=== PATIENT | male | born 1970 | race Caucasian/White ===

== ENCOUNTER 2020-06-10 11:29 | Outpatient (REF) | payer OTHER, SELFPAY ==
[2020-06-10 14:13] LABS: Estimated Average Glucose 126 mg/dL
[2020-06-10 14:28] LABS: Alanine Aminotransferase 29 U/L (0-40); Anion Gap 14 (12-20); Aspartate Amino Transferase 22 U/L (5-37); Blood Urea Nitrogen 16 mg/dL (9-16); Calcium 8.9 mg/dL (8.4-10.2); Carbon Dioxide 29 mmol/L (22-29); Chloride 102 mmol/L (96-108); Cholesterol 155 mg/dL; Estimated Glomerular Filt Rate > 60; Glucose Fasting 107 mg/dL (60-99); HDL Cholesterol 38 mg/dL; LDL Cholesterol Calculated 101 mg/dl; Potassium 4.6 mmol/l (3.3-5.1); Sodium 140 mmol/L (135-145); Triglycerides 83 mg/dL
== END 2020-06-10 11:30 | disposition home or self-care (01) ==
LOC: HO.HMGCLDS 11:29
PROVIDERS: PCP Internal Medicine; Visit Provider Internal Medicine
DX: L20.82 Flexural eczema (principal); Z79.4 Long term (current) use of insulin; Z00.01 Encounter for general adult medical examination with abnormal findings
CPT/HCPCS: 80048; 80061; 83036; 84450; 84460

== ENCOUNTER → 2020-06-30 07:47 | Outpatient (BNVA) | payer OTHER, SELFPAY | PROVIDERS: PCP Internal Medicine; Referring Provider Internal Medicine; Visit Provider Nurse Practitioner Gerontology | DX: Z76.89 Persons encountering health services in other specified circumstances (principal) ==

== ENCOUNTER → 2020-08-01 09:14 | Outpatient (BNVA) | payer SELFPAY | PROVIDERS: PCP Internal Medicine; Referring Provider Internal Medicine; Visit Provider Physician Assistant | DX: Z76.89 Persons encountering health services in other specified circumstances (principal) ==

== ENCOUNTER 2020-09-19 08:57 | Day surgery (SDC) | payer OTHER, SELFPAY ==
[2020-09-13 11:01] VITALS: BMI 29.7
--- NOTE | 2020-09-15 14:03 | HO.ANESPROP2 ---
Documented by User: Tiffanie Martinney 09/15/20 14:08 HPI - Anesthesia Eval Consult details Narrative: 50yo M for Colonoscopy h/o etoh - last drank 12/2019 per GI record [facility] Past Medical History Medical History (Updated 09/13/20 @ 10:59 by Daisy Dias) Acute pancreatitis Acute renal failure Cirrhosis, alcoholic DKA (diabetic ketoacidoses) Hx of fracture of fibula Hyperlipidemia LDL goal <100 Hypertriglyceridemia Type 1 diabetes mellitus without complications Family History Family History Father Diabetes Mother Hyperlipidemia Paternal Uncle Diabetes Surgical History Surgical History Hx of hand surgery Social History Social History (Updated 09/13/20 @ 11:00 by Daisy Dias) Household Members: Spouse and Children Alcohol intake: former Year quit: 2019 Smoking Status: Never smoker Use of substances other than those prescribed or required for medical reasons: No Substance Use Type: Marijuana Substance Use Frequency: Daily Have you been hit, kicked, punched, or otherwise hurt by someone within the past year? 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 Meds Allergies Allergy/AdvReac Type Severity Reaction Status Date / Time No Known Allergies Allergy Verified 09/19/20 09:18 [No Known Allergies*] Home Medications Medication Instructions Recorded Confirmed Type alcohol swabs pad TOPICAL BID-TID PRN 06/30/20 08/01/20 History atorvastatin 20 mg tablet 20 mg PO DAILY 06/30/20 09/13/20 History flash glucose sensor #1 ea 06/30/20 08/01/20 History insulin glargine 100 unit/mL (3 12 unit SUBCUT BEDTIME 06/30/20 09/13/20 History mL) subcutaneous pen insulin lispro 100 unit/mL 2 - 6 unit SUBCUT TID PRN ml 06/30/20 09/13/20 History subcutaneous pen lancets 33 gauge #100 ea 06/30/20 08/01/20 History Exam Exam Date and Time: September 15, 2020 1403 Height,Weight and Vital Signs: Height 5 ft 7 in Weight 86.183 kg Pertinent Lab Results Pertinent Lab Results: Laboratory Tests 12/28/19 12/29/19 06/10/20 05:32 05:24 11:45 WBC 6.0 Hgb 15.1 Hct 42.2 Plt Count 139 L PT 11.7 INR 1.0 Sodium 140 Potassium 4.6 Chloride 102 Carbon Dioxide 29 BUN 16 Creatinine 0.82 Calcium 8.9 AST 22 ALT 29 Assessment and Plan Assessment Anesthesia Assessment: Chart Reviewed Documented by User: Tess Bishop 09/19/20 09:42 [facility] Past Medical History Medical History (Updated 09/13/20 @ 10:59 by Daisy Dias) Acute pancreatitis Acute renal failure Cirrhosis, alcoholic DKA (diabetic ketoacidoses) Hx of fracture of fibula Hyperlipidemia LDL goal <100 Hypertriglyceridemia Type 1 diabetes mellitus without complications Family History Family History Father Diabetes Mother Hyperlipidemia Paternal Uncle Diabetes Surgical History Surgical History Hx of hand surgery Social History Social History (Updated 09/13/20 @ 11:00 by Daisy Dias) Household Members: Spouse and Children Alcohol intake: former Year quit: 2019 Smoking Status: Never smoker Use of substances other than those prescribed or required for medical reasons: No Substance Use Type: Marijuana Substance Use Frequency: Daily Have you been hit, kicked, punched, or otherwise hurt by someone within the past year? 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 Meds Allergies Allergy/AdvReac Type Severity Reaction Status Date / Time No Known Allergies Allergy Verified 09/19/20 09:18 [No Known Allergies*] Home Medications Medication Instructions Recorded Confirmed Type alcohol swabs pad TOPICAL BID-TID PRN 06/30/20 08/01/20 History atorvastatin 20 mg tablet 20 mg PO DAILY 06/30/20 09/13/20 History flash glucose sensor #1 ea 06/30/20 08/01/20 History insulin glargine 100 unit/mL (3 12 unit SUBCUT BEDTIME 06/30/20 09/13/20 History mL) subcutaneous pen insulin lispro 100 unit/mL 2 - 6 unit SUBCUT TID PRN ml 06/30/20 09/13/20 History subcutaneous pen lancets 33 gauge #100 ea 06/30/20 08/01/20 History Exam Airway Mallampati Class: II (One cap laterally) TM Dist: >3cm Neck ROM: Full Heart: nakia Lungs: CTA BL Assessment and Plan Assessment Anesthesia Assessment: Anesthesia Plan Discussed and Chart Reviewed Final Anesthetic Review NPO: Yes ASA Class: III Final Preanesthetic Review: Meds/Allgs Chart Reviewed and Consent Obtained/Reviewed Patient Risk: Intermediate Procedure Risk: Intermediate Anesthetic Plan Anesthetic Plan: MAC: Disposition: Standard PACU
[2020-09-19 09:18] LABS: Glucose, Whole Blood 128 mg/dL (60-115)
[2020-09-19 09:29] VITALS: BP 134/79; PULSE 60; RESP 18; TEMP 35.3; O2SAT 98
--- NOTE | 2020-09-19 09:39 | MHC.SHP ---
Pre-Procedural Eval Section A The patient is an INPATIENT: No The History & Physical has been completed within 30 days and I have reviewed it.: No Section B Chief Complaint: screening Relevant Family History (Specify if Yes): No Relevant Social History: None Present Medications: see Short Stay Collaborative assessment Medical History: Significant History (Acute pancreatitis Acute renal failure Cirrhosis, alcoholic DKA (diabetic ketoacidoses) Hyperlipidemia LDL goal <100 Hypertriglyceridemia Type 1 diabetes mellitus without complications) History of Previous Operations: Relevant previous surgery/procedure and date(s) (Hand surgery) Allergies: Allergies Allergy/AdvReac Type Severity Reaction Status Date / Time No Known Allergies Allergy Verified 09/19/20 09:18 [No Known Allergies*] Review of Systems Sugical H&P ROS: Negative: Constitution, Cardiovascular, Respiratory and Gastrointestinal Exam Surgical H&P Exam: Normal: Heart, Normal: Lungs, Normal: Extremities and Normal: Abdomen Plan Diagnosis/Plan: Unchanged I have reviewed the history and physical and performed a pertinent physical examination on my patient. No changes have occurred unless specified.
--- NOTE | 2020-09-19 09:39 | PM.OP ---
Brief Operative Note Date of Service: 09/19/20 Pre-op diagnosis: Colon cancer screening Post-op diagnosis: other (Colon polyps, diverticulosis, hemorrhoids) Procedure: COLONOSCOPY TILL CECUM WITH SNARE POLYPECTOMY AND SUBMUCOSAL INJECTION (WITH ORISE SOLUTION) Consent: Indications for the procedure and potential complications of bleeding, perforation, reaction to medications and missed diagnosis were discussed with the patient and informed consent was obtained. Instrument: Olympus PCF H 190 L variable stiffness pediatric colonoscope Monitoring: Vital signs and clinical assessment, intermittent blood pressure monitoring, continuous EKG monitoring, Pulse oximetry and Carbon Dioxide monitoring were done throughout the procedure. Colon withdrawl time was 23 minutes. Procedure: The patient was placed in the left lateral decubitis position and pre-procedure medications were administered. After a digital rectal examination of the ano-rectum, the video colonoscope was inserted into the rectum and advanced through the colon to the cecum. The colonoscope was slowly withdrawn in a retrograde panoramic fashion and the colon mucosa was carefully examined including a retroflexed view of the rectum. Findings and interventions are described below. Procedure Difficulty: Without difficulty Findings: Terminal Ileum: Not evaluated Cecum: A 1.8 to 2 cms sessile polyp adjacent to appendicular orifice, raised with 4 cc of Orise solution (submucosal injection) and removed with a hot snare. Ascending Colon: Normal Transverse Colon: 10 mm sessile polyp removed with a hot snare. Descending Colon: Moderate diverticulosis Sigmoid Colon: Moderate diverticulosis Rectum: Normal Ano-rectum: Small internal hemorrhoids Colon preparation: Excellent Impression and Post Procedure Diagnosis: Colonoscopy Findings: Two medium sized polyps removed Moderate diverticulosis seen in the left colon Small hemorrhoids on retroflexed exam. Plan: Await pathology results Patient has an appointment on 09/27/20 in the GI Clinic with DAVIS Abreu. Repeat Colonoscopy interval based on path results - in 3 years if polyps are adenomatous and 10 years if polyps are hyperplastic. Above findings were reviewed with the patient and colon polyps and diverticulosis handouts were given in the discharge area Surgeon: Bettye Perez MD Anesthesia: MAC (Dr Guillen) Estimated blood loss (mL): 0 Pathology: other (A. cecal polyp x 1, B. TC polyp.) Condition: stable Disposition: PACU
[2020-09-19] MEDS: Lactated Ringers 1,000 ML 100 ML IVCONT (09:40)
[2020-09-19 10:24] VITALS: BP 120/79; PULSE 50; RESP 16; TEMP 36.1; O2SAT 98
[2020-09-19 10:39] VITALS: BP 130/76; PULSE 50; RESP 16; O2SAT 98
--- NOTE | 2020-09-19 10:53 | PC.NURSE ---
1048 TO; PO NO NV PREP FOR DC MONITORS AND IVF DCD ASST OOB CH STEADY IV DCD DRESSED SELF AT BS CALL FIELD IN REACH, PT CHECKED OWN BS 128. PLAN TO AMB TO DC
--- NOTE | 2020-09-19 11:08 | HO.POSTANES ---
Post Anesthesia Evaluation Post Anesthesia Evaluation Vital Signs: Vital Signs Temp Pulse Resp BP Pulse Ox 09/19/20 10:39 97 F 50 16 130/76 98 09/19/20 10:24 97 F 50 16 120/79 98 09/19/20 09:29 95.6 F L 60 18 134/79 98 Anesthesia: Monitored Mental Status: Awake Pain Control: Satisfactory Nausea/Vomiting: None Hydration: Adequate Anesthesia-Related Issues: No Anes. Related Issues
== END 2020-09-19 11:11 | disposition home or self-care (01) ==
PROVIDERS: PCP Internal Medicine; Visit Provider Internal Medicine Gastroenterology
PROC: 0DJD8ZZ Inspection of Lower Intestinal Tract, Via Natural or Artificial Opening Endoscopic (ICD-10-PCS; CPT 45378; principal; 2020-09-19 10:10)
DX: Z12.11 Encounter for screening for malignant neoplasm of colon (principal); K63.5 Polyp of colon; K57.30 Diverticulosis of large intestine without perforation or abscess without bleeding; K64.8 Other hemorrhoids; E10.9 Type 1 diabetes mellitus without complications
CPT/HCPCS: 45385; 45381; 82947; 88305

== ENCOUNTER → 2020-09-27 10:19 | Outpatient (BNVA) | payer OTHER, SELFPAY | PROVIDERS: PCP Internal Medicine; Visit Provider Physician Assistant ==

== ENCOUNTER → 2020-12-28 08:01 | Outpatient (BNVA) | payer OTHER, SELFPAY | PROVIDERS: PCP Internal Medicine; Visit Provider Nurse Practitioner Gerontology | DX: R10.9 Unspecified abdominal pain (principal); E78.5 Hyperlipidemia, unspecified | CPT/HCPCS: 82947 ==

== ENCOUNTER 2021-02-06 08:31 | Outpatient (REF) | payer OTHER, SELFPAY ==
[2021-02-06 09:37] LABS: Estimated Average Glucose 171 mg/dL; Hemoglobin A1c % 7.6 %
[2021-02-06 09:57] LABS: Cholesterol 193 mg/dL; HDL Cholesterol 21 mg/dL
[2021-02-06 10:02] LABS: Creatinine Urine 72.21 mg/dL; Microalbumin Urine < 5.0 mg/L
[2021-02-06 10:26] LABS: Triglycerides 1505 mg/dL
[2021-02-06 11:17] LABS: Alanine Aminotransferase 25 U/L (0-40); Albumin Level 4.2 g/dL (3.5-5.0); Alkaline Phosphatase 69 U/L (39-117); Anion Gap 13 (12-20); Aspartate Amino Transferase 26 U/L (5-37); Bilirubin Total 0.5 mg/dL (0.0-1.0); Blood Urea Nitrogen 15 mg/dL (9-16); Carbon Dioxide 22 mmol/L (22-29); Chloride 110 mmol/L (96-108); Estimated Glomerular Filt Rate > 60; Glucose Fasting 221 mg/dL (60-99); Potassium 5.2 mmol/L (3.3-5.1); Sodium 140 mmol/L (135-145); Total Protein 6.4 g/dL (6.5-8.0)
[2021-02-07 19:52] LABS: LDL Cholesterol Direct 59 mg/dL (<100)
== END 2021-02-06 08:32 | disposition home or self-care (01) ==
LOC: HO.LAB 08:31
PROVIDERS: Visit Provider Nurse Practitioner Gerontology
DX: E11.42 Type 2 diabetes mellitus with diabetic polyneuropathy (principal)
CPT/HCPCS: 36415; 80053; 80061; 82043; 83036; 83721

== ENCOUNTER → 2021-02-08 07:55 | Outpatient (BNVA) | payer OTHER, SELFPAY | PROVIDERS: PCP Internal Medicine; Visit Provider Nurse Practitioner Gerontology | DX: E10.9 Type 1 diabetes mellitus without complications (principal); E78.5 Hyperlipidemia, unspecified; E78.1 Pure hyperglyceridemia | CPT/HCPCS: 82947 ==

== ENCOUNTER 2021-03-22 07:45 | Outpatient (REF) | payer OTHER, SELFPAY ==
[2021-03-22 09:16] LABS: Anion Gap 10 (12-20); Blood Urea Nitrogen 19 mg/dL (9-16); Calcium 9.5 mg/dL (8.4-10.2); Carbon Dioxide 26 mmol/L (22-29); Chloride 109 mmol/L (96-108); Cholesterol 136 mg/dL; Estimated Glomerular Filt Rate > 60; Glucose Random 148 mg/dL (60-115); HDL Cholesterol 41 mg/dL; LDL Cholesterol Calculated 81 mg/dl; Potassium 4.7 mmol/L (3.3-5.1); Sodium 140 mmol/L (135-145); Triglycerides 71 mg/dL
== END 2021-03-22 07:46 | disposition home or self-care (01) ==
LOC: HO.LAB 07:45
PROVIDERS: PCP Internal Medicine; Visit Provider Nurse Practitioner Gerontology
DX: E78.1 Pure hyperglyceridemia (principal); E10.9 Type 1 diabetes mellitus without complications
CPT/HCPCS: 36415; 80048; 80061

== ENCOUNTER → 2021-04-14 08:23 | Outpatient (BNVA) | payer OTHER, SELFPAY | PROVIDERS: PCP Internal Medicine; Visit Provider Nurse Practitioner Gerontology | DX: E78.5 Hyperlipidemia, unspecified (principal); E78.1 Pure hyperglyceridemia; E10.9 Type 1 diabetes mellitus without complications | CPT/HCPCS: 82947 ==

== ENCOUNTER → 2021-08-17 08:22 | Outpatient (BNVA) | payer OTHER, SELFPAY | PROVIDERS: PCP Internal Medicine; Visit Provider Nurse Practitioner Gerontology | DX: E10.9 Type 1 diabetes mellitus without complications (principal); E78.5 Hyperlipidemia, unspecified; E78.1 Pure hyperglyceridemia | CPT/HCPCS: 82947; 83036 ==

== ENCOUNTER 2021-11-14 08:28 | Outpatient (REF) | payer OTHER, SELFPAY ==
[2021-11-14 10:39] LABS: Alanine Aminotransferase 31 U/L (0-40); Albumin Level 4.3 g/dL (3.5-5.0); Alkaline Phosphatase 51 U/L (39-117); Anion Gap 10 (12-20); Aspartate Amino Transferase 26 U/L (5-37); Bilirubin Total 0.5 mg/dL (0.0-1.0); Blood Urea Nitrogen 17 mg/dL (9-16); Calcium 9.2 mg/dL (8.4-10.2); Carbon Dioxide 26 mmol/L (22-29); Chloride 108 mmol/L (96-108); Cholesterol 129 mg/dL; Estimated Glomerular Filt Rate > 60; Glucose Fasting 136 mg/dL (60-99); HDL Cholesterol 44 mg/dL; LDL Cholesterol Calculated 80 mg/dl; Potassium 5.1 mmol/L (3.3-5.1); Sodium 139 mmol/L (135-145); Total Protein 6.5 g/dL (6.5-8.0); Triglycerides 29 mg/dL
[2021-11-14 12:07] LABS: Creatinine Urine 130.12 mg/dL; Microalbumin Urine < 5.0 mg/L
[2021-11-16 02:36] LABS: LDL Cholesterol Direct 72 mg/dL (<100)
== END 2021-11-14 08:29 | disposition home or self-care (01) ==
LOC: HO.LAB 08:28
PROVIDERS: PCP Internal Medicine; Visit Provider Nurse Practitioner Gerontology
DX: E10.9 Type 1 diabetes mellitus without complications (principal)
CPT/HCPCS: 36415; 80053; 80061; 82043; 83721

== ENCOUNTER → 2021-11-16 07:59 | Outpatient (BNVA) | payer OTHER, SELFPAY | PROVIDERS: PCP Internal Medicine; Visit Provider Nurse Practitioner Gerontology | DX: E10.9 Type 1 diabetes mellitus without complications (principal); E78.5 Hyperlipidemia, unspecified; E78.1 Pure hyperglyceridemia; R00.1 Bradycardia, unspecified | CPT/HCPCS: 82947; 83036 ==

== ENCOUNTER → 2021-12-04 07:54 | Outpatient (REF) | payer OTHER, SELFPAY ==
--- NOTE | 2021-12-04 07:58 | ECG_ITS ---
Test Reason : BRADYCARDIA Blood Pressure : / mmHG Vent. Rate : 046 BPM Atrial Rate : 093 BPM P-R Int : 000 ms QRS Dur : 094 ms QT Int : 460 ms P-R-T Axes : 062 013 015 degrees QTc Int : 402 ms Sinus rhythm with intermittent second degree HB Minimal voltage criteria for LVH, may be normal variant ( Sokolow-Nagel ) Abnormal ECG When compared with ECG of 27-DEC-2019 09:18, Rhythm change Referred By: Aimee Burton Electronically Signed By:MINNIE BROWN
--- NOTE | 2021-12-04 07:58 | HM_ITS ---
* Total monitoring time 3 days and 3 hours. * Underlying rhythm is sinus. Average ventricular rate 56/Min; range 36 to 124/Min. * No atrial fibrillation or flutter. * Second-degree, Mobitz type 1 AV block noted 28% the time (mostly sleep hours). * 4 pauses noted; longest 2.8 seconds during sleep hours. * Frequent supraventricular ectopy; burden of 15%. * Rare ventricular ectopy with minimal burden. * No patient events. MTDD
== END ==
LOC: HO.CARD 07:54
PROVIDERS: PCP Internal Medicine; Visit Provider Internal Medicine
DX: R00.1 Bradycardia, unspecified (principal)
CPT/HCPCS: 93005; 93242

== ENCOUNTER 2022-05-14 11:30 | Outpatient (REF) | payer OTHER, SELFPAY ==
[2022-05-14 14:05] LABS: Appearance Urine Clear; Color Urine Yellow; Glucose Urine UA Negative (Negative); Leukocyte Esterase Urine Negative (Negative); Nitrite Urine Negative (Negative); Urine Blood Negative (Negative); Urine Ketones Negative (Negative); Urine Protein Negative (Neg-Trace)
[2022-05-14 14:07] LABS: MANUAL DIFF FLAG NO
[2022-05-14 14:10] LABS: Bacteria Urine None Seen (None Seen); Hyaline Casts Urine 0-2 /LPF (0-2); RBC Urine 0-2 /HPF (0-2); Squamous Epithelial Cell Urine 0-2 /HPF (0-2); WBC Urine 0-5 /HPF (0-5)
[2022-05-14 14:19] LABS: Basophils Absolute Auto 0.1 X10*3/uL (0.0-0.2); Eosinophils Absolute Auto 0.1 X10*3/uL (0.0-0.4); Eosinophils Percent Auto 1.8 % (0-4); Hematocrit 40.7 % (42.0-52.0); Imm Gran Abs Auto 0.01 X10*3/uL (0.00-0.03); Imm Gran Pct Auto 0.2 % (0.0-0.4); Lymphocytes Absolute Auto 1.4 X10*3/uL (1.2-4.9); Lymphocytes Percent Auto 27.7 % (20-40); Mean Corpuscular HGB Conc 31.9 g/dl (31.0-36.0); Mean Corpuscular Hemoglobin 26.4 pg (27.0-33.0); Mean Corpuscular Volume 82.6 fL (80.0-98.0); Monocytes Absolute Auto 0.4 X10*3/uL (0.1-1.2); Monocytes Percent Auto 7.1 % (2-11); Neutrophils Absolute Auto 3.1 x10*3/uL (2.0-8.3); Neutrophils Percent Auto 62.2 % (45-73); Platelet Count 239 X10*3/uL (160-400); Red Blood Count 4.93 X10*6/uL (4.60-5.80); White Blood Count 4.9 X10*3/uL (4.8-10.8)
[2022-05-14 14:36] LABS: Creatinine Urine 63.46 mg/dL; Microalbumin Urine < 5.0 mg/L
[2022-05-14 14:44] LABS: Estimated Average Glucose 148 mg/dL; Hemoglobin A1c % 6.8 %
[2022-05-14 14:46] LABS: Alanine Aminotransferase 28 U/L (0-40); Albumin Level 4.7 g/dL (3.5-5.0); Alkaline Phosphatase 51 U/L (39-117); Anion Gap 14 (12-20); Aspartate Amino Transferase 26 U/L (5-37); Bilirubin Total 0.5 mg/dL (0.0-1.0); Blood Urea Nitrogen 16 mg/dL (9-16); Calcium 9.5 mg/dL (8.4-10.2); Carbon Dioxide 27 mmol/L (22-29); Chloride 106 mmol/L (96-108); Cholesterol 131 mg/dL; Estimated Glomerular Filt Rate > 60; Glucose Fasting 109 mg/dL (60-99); HDL Cholesterol 42 mg/dL; LDL Cholesterol Calculated 81 mg/dl; Potassium 4.5 mmol/L (3.3-5.1); Sodium 142 mmol/L (135-145); Total Protein 6.8 g/dL (6.5-8.0); Triglycerides 40 mg/dL
[2022-05-14 14:55] LABS: PSA,Total (Free>4and<10) 0.24 ng/mL (0.00-4.00)
== END 2022-05-14 11:31 | disposition home or self-care (01) ==
LOC: HO.HMGCLDS 11:30
PROVIDERS: PCP Internal Medicine; Visit Provider Internal Medicine
DX: Z00.00 Encounter for general adult medical examination without abnormal findings (principal); E10.9 Type 1 diabetes mellitus without complications; E78.5 Hyperlipidemia, unspecified; Z12.5 Encounter for screening for malignant neoplasm of prostate
CPT/HCPCS: 36415; 80053; 80061; 81001; 82043; 83036; 84153; 85025

== ENCOUNTER 2022-08-21 09:45 | Outpatient (REF) | payer OTHER, SELFPAY ==
[2022-08-21 14:53] LABS: Alanine Aminotransferase 18 U/L (0-40); Albumin Level 4.5 g/dL (3.5-5.0); Alkaline Phosphatase 46 U/L (39-117); Anion Gap 10 (12-20); Aspartate Amino Transferase 21 U/L (5-37); Bilirubin Total 1.1 mg/dL (0.0-1.0); Blood Urea Nitrogen 20 mg/dL (9-16); Calcium 9.3 mg/dL (8.4-10.2); Carbon Dioxide 25 mmol/L (22-29); Chloride 107 mmol/L (96-108); Estimated Glomerular Filt Rate > 60; Glucose Fasting 114 mg/dL (60-99); Potassium 3.9 mmol/L (3.3-5.1); Sodium 138 mmol/L (135-145); Total Protein 6.5 g/dL (6.5-8.0)
[2022-08-21 15:32] LABS: Estimated Average Glucose 157 mg/dL; Hemoglobin A1c % 7.1 %
== END 2022-08-21 09:46 | disposition home or self-care (01) ==
LOC: HO.HMGCLDS 09:45
PROVIDERS: PCP Internal Medicine; Visit Provider Internal Medicine
DX: Z00.00 Encounter for general adult medical examination without abnormal findings (principal); E10.9 Type 1 diabetes mellitus without complications
CPT/HCPCS: 36415; 80053; 83036

== ENCOUNTER 2022-11-12 08:04 | Outpatient (REF) | payer OTHER, SELFPAY ==
[2022-11-12 11:55] LABS: Estimated Average Glucose 163 mg/dL; Hemoglobin A1c % 7.3 %
[2022-11-12 12:09] LABS: Alanine Aminotransferase 24 U/L (0-40); Albumin Level 4.4 g/dL (3.5-5.0); Alkaline Phosphatase 48 U/L (39-117); Anion Gap 12 (12-20); Aspartate Amino Transferase 22 U/L (5-37); Bilirubin Total 0.7 mg/dL (0.0-1.0); Blood Urea Nitrogen 14 mg/dL (9-16); Carbon Dioxide 24 mmol/L (22-29); Chloride 107 mmol/L (96-108); Cholesterol 133 mg/dL; Estimated Glomerular Filt Rate > 60; Glucose Fasting 161 mg/dL (60-99); HDL Cholesterol 44 mg/dL; LDL Cholesterol Calculated 80 mg/dl; Potassium 4.3 mmol/L (3.3-5.1); Sodium 139 mmol/L (135-145); Total Protein 6.4 g/dL (6.5-8.0); Triglycerides 45 mg/dL
== END 2022-11-12 08:05 | disposition home or self-care (01) ==
LOC: HO.HMGCLDS 08:04
PROVIDERS: PCP Internal Medicine; Visit Provider Internal Medicine
DX: E10.9 Type 1 diabetes mellitus without complications (principal); E78.5 Hyperlipidemia, unspecified
CPT/HCPCS: 36415; 80053; 80061; 83036

== ENCOUNTER 2023-02-21 11:44 | Outpatient (AMB) | payer OTHER, SELFPAY ==
[2023-02-21 11:48] VITALS: BP 106/68; PULSE 50; O2SAT 99; BMI 28.7
--- NOTE | 2023-02-21 11:48 | MHC.PC.OV ---
Vital Signs 02/21/23 11:48 Height 5 ft 7 in Weight 183 lb BMI 28.7 BP 106/68 Blood Pressure Location Lt brachial Position Sitting Pulse 50 Pulse Source Pulse Oximeter Pulse Oximetry (%) 99 Oxygen Delivery Method Room Air Intake Visit Reasons: 2 month follow up DM Intake Note: Pt is here today for 2 months follow up visit on DM. Allergies No Known Allergies [No Known Allergies*] Allergy (Verified 02/21/23 11:51) Tobacco use date assessed: 02/21/23 Dental Screening Dental Screen Date: 02/21/23 Did you have a dental visit in the last 12 months?: Yes Did you have a dental problem in the last 6 months where you did not have access to dental care?: No Was dental information given to patient?: Patient has dentist HPI 2 month follow up DM HPI Details Patient presents for the follow-up of insulin-dependent diabetes and hyperlipidemia. Patient reports improved blood glucose readings to less than 120 fasting. Patient denies frequent hypoglycemia. He has been exercising regularly PFSH Medical History Acute pancreatitis Acute renal failure Annual physical exam Cirrhosis, alcoholic DKA (diabetic ketoacidoses) Hx of fracture of fibula Hyperlipidemia LDL goal <100 Hypertriglyceridemia Normal colonoscopy Type 1 diabetes mellitus without complications Surgical History Hx of hand surgery Family History Father Diabetes Mother Hyperlipidemia Paternal Uncle Diabetes Social History Household Members: Spouse and Children Housing: House Alcohol intake: former Year quit: 2019 Patient Tobacco Use Status: Never used Tobacco e-Cigarette/Vaping Use: Never Used Substance Use Type: Marijuana Current occupational status: employed 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 Esvin Calle, Tabby Saldivar, Raghav Carr and colleagues, with an educational spring from [employer]. Review of Systems Const All systems reviewed & are unremarkable except as noted in HPI and below Reports no additional complaints Eyes Reports no additional complaints ENT Reports no additional complaints Card Reports no additional complaints Resp Reports no additional complaints GI Reports no additional complaints Reports no additional complaints Musc Reports no additional complaints Physical exam (Primary Care) Vital Signs: Last Vital Signs Pulse 50 02/21/23 11:48 BP 106/68 02/21/23 11:48 Pulse Ox 99 02/21/23 11:48 Oxygen Delivery Method Room Air 02/21/23 11:48 BMI result Body Mass Index 28.7 Tobacco/Smoking Status: Tobacco use Status Tobacco use date assessed 02/21/23 02/21/23 11:52 Patient Tobacco Use Status Never used Tobacco 02/21/23 11:52 e-Cigarette/Vaping Use Never Used 02/21/23 11:48 Thrive Assessment: Date of Thrive Assessment Date Thrive assessed 08/22/22 02/21/23 11:48 Const General: no acute distress HENMT Head: Yes normal to inspection Neck Neck: Yes supple Resp Effort & Inspection: normal respiratory effort Auscultation: clear to auscultation bilaterally Cardio Rhythm: regular rhythm Heart sounds: S1 normal heart sound present and S2 normal heart sound present Results AMB Hemoglobin A1c AMB Hemoglobin A1c 6.1 % Last Edit by ANDER Flores on 02/21/23 12:04 Results Reviewed Results Reviewed: Laboratory Last Values Hgb A1c (Clinic) 6.1 % (4.0-6.0) H 02/21/23 11:58 Assessment and Plan Assessment & Plan (1) Type 1 diabetes mellitus without complications: Code(s): E10.9 - Type 1 diabetes mellitus without complications Plan: A1c is 6.1, continue current regular exercise follow-up in 3 months with a fasting labs before (2) Hyperlipidemia LDL goal <100: Code(s): E78.5 - Hyperlipidemia, unspecified Plan: Continue Lipitor and stop fenofibrate. check lipid profile in 3 months Orders: Orders Comprehensive [place]. Panel Fast 3 Months E10.9 - Type 1 diabetes mellitus without complications, E78.5 - Hyperlipidemia, unspecified C Peptide 3 Months E10.9 - Type 1 diabetes mellitus without complications, E78.5 - Hyperlipidemia, unspecified Hemoglobin A1c 3 Months E10.9 - Type 1 diabetes mellitus without complications, E78.5 - Hyperlipidemia, unspecified Insulin Auto Antibody 3 Months E10.9 - Type 1 diabetes mellitus without complications, E78.5 - Hyperlipidemia, unspecified Lipid Panel 3 Months E10.9 - Type 1 diabetes mellitus without complications, E78.5 - Hyperlipidemia, unspecified PSA,Total (Free>4and<10) 3 Months E10.9 - Type 1 diabetes mellitus without complications, E78.5 - Hyperlipidemia, unspecified Microalbumin, Random (w Creat) 3 Months E10.9 - Type 1 diabetes mellitus without complications, E78.5 - Hyperlipidemia, unspecified Complete Blood Count Auto Diff 3 Months E10.9 - Type 1 diabetes mellitus without complications, E78.5 - Hyperlipidemia, unspecified AMB Hemoglobin A1c Today Z13.9 - Encounter for screening, unspecified Coding Level of Care Code Est Pt Level 3 (24437) Diagnoses Type 1 diabetes mellitus without complications E10.9 Hyperlipidemia LDL goal <100 E78.5
== END 2023-02-21 12:33 | disposition home or self-care (01) ==
PROVIDERS: Visit Provider Internal Medicine
DX: E10.9 Type 1 diabetes mellitus without complications (principal); E78.5 Hyperlipidemia, unspecified; Z13.9 Encounter for screening, unspecified
CPT/HCPCS: 83036; 99213

== ENCOUNTER 2023-05-14 09:28 | Outpatient (REF) | payer OTHER, SELFPAY ==
[2023-05-14 11:15] LABS: MANUAL DIFF FLAG NO
[2023-05-14 11:29] LABS: Basophils Absolute Auto 0.1 X10*3/uL (0.0-0.2); Basophils Percent Auto 1.6 % (0-2); Eosinophils Absolute Auto 0.1 X10*3/uL (0.0-0.4); Eosinophils Percent Auto 3.4 % (0-4); Hematocrit 40.5 % (42.0-52.0); Hemoglobin 12.8 g/dl (14.0-18.0); Imm Gran Abs Auto 0.01 X10*3/uL (0.00-0.03); Imm Gran Pct Auto 0.3 % (0.0-0.4); Lymphocytes Absolute Auto 0.9 X10*3/uL (1.2-4.9); Lymphocytes Percent Auto 28.8 % (20-40); Mean Corpuscular HGB Conc 31.6 g/dl (31.0-36.0); Mean Corpuscular Hemoglobin 25.8 pg (27.0-33.0); Mean Corpuscular Volume 81.7 fL (80.0-98.0); Mean Platelet Volume 11.1 fL (9.4-12.4); Monocytes Absolute Auto 0.3 X10*3/uL (0.1-1.2); Monocytes Percent Auto 9.1 % (2-11); Neutrophils Absolute Auto 1.8 x10*3/uL (2.0-8.3); Neutrophils Percent Auto 56.8 % (45-73); Platelet Count 245 X10*3/uL (160-400); Red Blood Count 4.96 X10*6/uL (4.60-5.80); Red Cell Distribution Width 14.9 % (11.0-16.0); White Blood Count 3.2 X10*3/uL (4.8-10.8)
[2023-05-14 11:33] LABS: Estimated Average Glucose 140 mg/dL; Hemoglobin A1c % 6.5 % (<6.0)
[2023-05-14 12:37] LABS: Alanine Aminotransferase 28 U/L (0-40); Albumin Level 4.4 g/dL (3.5-5.0); Alkaline Phosphatase 50 U/L (39-117); Anion Gap 10 (12-20); Aspartate Amino Transferase 23 U/L (5-37); Bilirubin Total 0.5 mg/dL (0.0-1.0); Blood Urea Nitrogen 12 mg/dL (9-16); Calcium 9.2 mg/dL (8.4-10.2); Carbon Dioxide 26 mmol/L (22-29); Chloride 109 mmol/L (96-108); Cholesterol 131 mg/dL (<200); Estimated Glomerular Filt Rate > 60; Glucose Fasting 142 mg/dL (60-99); HDL Cholesterol 40 mg/dL (>40); LDL Cholesterol Calculated 81 mg/dL (<100); Potassium 4.4 mmol/L (3.3-5.1); Sodium 141 mmol/L (135-145); Total Protein 6.7 g/dL (6.5-8.0); Triglycerides 52 mg/dL (<150)
[2023-05-14 12:43] LABS: Creatinine Urine 132.18 mg/dL; Microalbumin Urine < 5.0 mg/L
[2023-05-14 13:03] LABS: PSA,Total (Free>4and<10) 0.31 ng/mL (0.00-4.00)
[2023-05-16 03:29] LABS: C Peptide 1.68 ng/mL (0.80-3.85)
[2023-05-22 22:09] LABS: Insulin Auto Antibody 0.5 U/mL (<0.4)
== END 2023-05-14 09:29 | disposition home or self-care (01) ==
LOC: HO.HMGCLDS 09:28
PROVIDERS: PCP Internal Medicine; Visit Provider Internal Medicine
DX: E10.9 Type 1 diabetes mellitus without complications (principal); E78.5 Hyperlipidemia, unspecified; Z12.5 Encounter for screening for malignant neoplasm of prostate
CPT/HCPCS: 36415; 80053; 80061; 82043; 82570; 83036; 84153; 84681; 85025; 86337

== ENCOUNTER 2023-05-15 13:07 | Outpatient (AMB) | payer OTHER, SELFPAY ==
[2023-05-15 13:10] VITALS: BP 120/70; PULSE 49; O2SAT 99; BMI 28.7
--- NOTE | 2023-05-15 13:10 | A.OFFPC_ITS ---
Vital Signs 05/15/23 13:10 Height 5 ft 7 in Weight 183 lb BMI 28.7 BP 120/70 Blood Pressure Location Rt brachial Position Sitting Pulse 49 L Pulse Source Pulse Oximeter Pulse Oximetry (%) 99 Oxygen Delivery Method Room Air Intake Visit Reasons: Annual PE Intake Note: Pt is here today for PE. Allergies No Known Allergies [No Known Allergies*] Allergy (Verified 05/15/23 13:13) Medication List - Last Reconciled 05/15/23 by Aimee Burton MD alcohol swabs 1 pad topical BID-TID atorvastatin 40 mg PO BEDTIME blood sugar diagnostic ([employer] Ultra Blue Test Strip) four times a day fenofibrate micronized 134 mg PO DAILY flash glucose sensor (FreeStyle Rene 2 Sensor kit) As directed every 2 weeks FreeStyle Rene 2 [place] (flash glucose scanning reader) As directed NS FreeStyle Rene 2 Sensor (flash glucose sensor) As directed NS icosapent ethyl 2 grams (2 x 1 gram) PO BID insulin glargine (Lantus Solostar U-100 Insulin) 20 units (0.2 mL) subcut BEDTIME 90 days insulin lispro (Humalog Shawn KwikPen (U-100)) 4-20 units subcutaneously 4 times a day; lancets (SironRX Therapeuticsuch Delica Lancets) four times a day metformin 850 mg PO BID 90 days pen needle, diabetic (BD Ultra-Fine Franny Pen Needle) 1 ea subcut five times a day; triamcinolone acetonide 0.1% 1 appl topical DAILY Tobacco use date assessed: 02/21/23 HPI Annual PE HPI Details Pt presents for PE. He had evaluation by ENT for right side hearing loss and was diagnosed with acoustic schwannoma. Patient has a follow-up MRI in 6 months to evaluate for any change in the size of the tumor. [facility] Medical History Normal colonoscopy Annual physical exam Hx of fracture of fibula Hypertriglyceridemia Acute renal failure DKA (diabetic ketoacidoses) Acute pancreatitis Cirrhosis, alcoholic Hyperlipidemia LDL goal <100 Type 1 diabetes mellitus without complications Surgical History Hx of hand surgery Family History Father Diabetes Mother Hyperlipidemia Paternal Uncle Diabetes Social History Household Members: Spouse and Children Housing: House Alcohol intake: former Year quit: 2019 Patient Tobacco Use Status: Never used Tobacco e-Cigarette/Vaping Use: Never Used Substance Use Type: Marijuana Current occupational status: employed 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 1. Little interest or pleasure in doing things: not at all 2. Feeling down, depressed, or hopeless: not at all 3. Trouble falling or staying asleep, or sleeping too much: several days 4. Feeling tired or having little energy: not at all 5. Poor appetite or overeating: not at all 6. Feeling bad about yourself - or that you are a failure or have let yourself or your family down: not at all 7. Trouble concentrating on things, such as reading the newspaper or watching te levision: not at all 8. Moving or speaking so slowly that other people could have noticed. Or the opposite - being so fidgety or restless that you have been moving around a lot more than usual: not at all 9. Thoughts that you would be better off or of hurting yourself in some way: not at all Total score: 1 Depression Screening Interpretation: Negative Depression Screening Done: Yes Source: Developed by Drs. Esvin Calle, Raghav Cervantes and colleagues, with an educational spring from [employer]. Thrive Questionnaire Date Thrive assessed: 08/22/22 ELLA-7 AMB Questionnaire ELLA-7 Date ELLA - 7 assessed: 08/22/22 Source: Developed by Drs. Esvin Calle, Tabby Saldivar, Raghav Carr and colleagues, with an educational spring from [employer]. Review of Systems Const All systems reviewed & are unremarkable except as noted in HPI and below Reports no additional complaints Eyes Reports no additional complaints ENT Reports no additional complaints Card Reports no additional complaints Resp Reports no additional complaints GI Reports no additional complaints Reports no additional complaints Physical exam (Primary Care) Vital Signs: Last Vital Signs Pulse 49 L 05/15/23 13:10 BP 120/70 10/04/23 13:10 Pulse Ox 99 05/15/23 13:10 Oxygen Delivery Method Room Air 05/15/23 13:10 BMI result Body Mass Index 28.7 Tobacco/Smoking Status: Tobacco use Status Tobacco use date assessed 02/21/23 05/15/23 13:10 Patient Tobacco Use Status Never used Tobacco 05/15/23 13:10 e-Cigarette/Vaping Use Never Used 05/15/23 13:10 PHQ-9: PHQ-9 Score PHQ-9: Total score 1 05/15/23 13:15 Depression Screening Interpretation: Negative Thrive Assessment: Date of Thrive Assessment Date Thrive assessed 08/22/22 05/15/23 13:10 Const General: no acute distress HENMT Head: Yes normal to inspection General nose exam: Normal external nose present Face and sinus: Yes normal facial exam Throat: Yes posterior oropharynx normal Eyes General: appearance normal, both eyes and all related structures Neck Neck: Yes no lymphadenopathy and Yes supple Resp Effort & Inspection: normal respiratory effort Auscultation: clear to auscultation bilaterally Cardio Rhythm: regular rhythm Heart sounds: S1 normal heart sound present and S2 normal heart sound present GI Inspection: Yes normal to inspection Palpation (GI): Soft to palpation Percussion: Yes normal to percussion Auscultation: normal bowel sounds Extrem Other: Diabetic foot exam skin is intact monofilament and vibration intact bilaterally General: Yes no clubbing, cyanosis or edema Assessment and Plan Assessment & Plan (1) Schwannoma: Comment: R ear f/u ENT Code(s): D36.10 - Benign neoplasm of peripheral nerves and autonomic nervous system, unspecified (2) Type 1 diabetes mellitus without complications: Code(s): E10.9 - Type 1 diabetes mellitus without complications Plan: A1c 6.5, ADA diet regular physical activity discussed with the patient he will continue current medications and follow-up in 4 months with a fasting labs before (3) Hyperlipidemia LDL goal <100: Code(s): E78.5 - Hyperlipidemia, unspecified Plan: Continue statin (4) Annual physical exam: Code(s): Z00.00 - Encounter for general adult medical examination without abnormal findings Plan: Well-balanced diet regular exercise discussed with the patient. Orders: Orders Hemoglobin A1c 4 Months E10.9 - Type 1 diabetes mellitus without complications, E78.5 - Hyperlipidemia, unspecified Microalbumin, Random (w Creat) 4 Months E10.9 - Type 1 diabetes mellitus without complications, E78.5 - Hyperlipidemia, unspecified Comprehensive [place]. Panel Fast 4 Months E10.9 - Type 1 diabetes mellitus without complications, E78.5 - Hyperlipidemia, unspecified Complete Blood Count Auto Diff 4 Months E10.9 - Type 1 diabetes mellitus without complications, E78.5 - Hyperlipidemia, unspecified Lipid Panel 4 Months E10.9 - Type 1 diabetes mellitus without complications, E78.5 - Hyperlipidemia, unspecified Medications: Discontinued fenofibrate micronized Discontinued Reason: Doctor's Order 134 mg PO DAILY 90 caps 3RF E78.1 - Pure hyperglyceridemia Coding Level of Care Code Est Pt Prev Care 40-64y(83201) Diagnoses Schwannoma D36.10 Type 1 diabetes mellitus without complications E10.9 Hyperlipidemia LDL goal <100 E78.5 Annual physical exam Z00.00
== END 2023-05-15 15:27 | disposition home or self-care (01) ==
PROVIDERS: Visit Provider Internal Medicine
DX: D36.10 Benign neoplasm of peripheral nerves and autonomic nervous system, unspecified (principal); E10.9 Type 1 diabetes mellitus without complications; E78.5 Hyperlipidemia, unspecified; Z00.00 Encounter for general adult medical examination without abnormal findings
CPT/HCPCS: 99396

== ENCOUNTER 2023-09-17 10:53 | Outpatient (AMB) | payer OTHER, SELFPAY ==
--- NOTE | 2023-09-17 10:55 | MHC.PC.OV ---
Vital Signs 09/17/23 10:57 Height 5 ft 7 in Weight 184 lb BMI 28.8 BP 128/76 Blood Pressure Location Lt brachial Position Sitting Pulse 66 Pulse Source Pulse Oximeter Pulse Oximetry (%) 100 Oxygen Delivery Method Room Air Intake Visit Reasons: 4 month fu Intake Note: Pt is here today for 4 months follow up visit. Allergies No Known Allergies [No Known Allergies*] Allergy (Verified 09/17/23 10:59) Medication List - Last Reconciled 09/17/23 by Aimee Burton MD alcohol swabs 1 pad topical BID-TID atorvastatin 40 mg PO BEDTIME blood sugar diagnostic (OneTouch Ultra Blue Test Strip) four times a day blood-glucose sensor (FreeStyle Rene 3 Sensor device) As directed flash glucose sensor (FreeStyle Rene 2 Sensor kit) As directed every 2 weeks FreeStyle Rene 2 [place] (flash glucose scanning reader) As directed NS FreeStyle Rene 2 Sensor (flash glucose sensor) As directed NS icosapent ethyl 2 grams (2 x 1 gram) PO BID insulin glargine (Lantus Solostar U-100 Insulin) 20 units (0.2 mL) subcut BEDTIME 90 days insulin lispro (Humalog Shawn KwikPen (U-100)) 4-20 units subcutaneously 4 times a day; lancets ([employer] MediaTouch Delica Lancets) four times a day metformin 850 mg PO BID 90 days pen needle, diabetic (BD Ultra-Fine Franny Pen Needle) 1 ea subcut five times a day; triamcinolone acetonide 0.1% 1 appl topical DAILY Tobacco use date assessed: 09/17/23 Dental Screening Dental Screen Date: 09/17/23 Did you have a dental visit in the last 12 months?: Yes Did you have a dental problem in the last 6 months where you did not have access to dental care?: No Was dental information given to patient?: Patient has dentist HPI 4 month fu HPI Details Patient presents for the follow-up of insulin-dependent diabetes hyperlipidemia stable on current medications. [facility] Medical History Normal colonoscopy Annual physical exam Hx of fracture of fibula Hypertriglyceridemia Acute renal failure DKA (diabetic ketoacidoses) Acute pancreatitis Cirrhosis, alcoholic Hyperlipidemia LDL goal <100 Type 1 diabetes mellitus without complications Surgical History Hx of hand surgery Family History Father Diabetes Mother Hyperlipidemia Paternal Uncle Diabetes Social History Household Members: Spouse and Children Housing: House Alcohol intake: former Year quit: 2019 Patient Tobacco Use Status: Never used Tobacco e-Cigarette/Vaping Use: Never Used Substance Use Type: Marijuana Current occupational status: employed 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 How often do you have a drink containing alcohol?: Never 3. How often do you have six or more drinks on one occasion?: Never Total Score: 0 ELLA-7 AMB Questionnaire ELLA-7 Date ELLA - 7 assessed: 08/22/22 Source: Developed by Drs. Esvin Calle, Tabby Saldivar, Raghav Carr and colleagues, with an educational spring from [employer]. Review of Systems Const All systems reviewed & are unremarkable except as noted in HPI and below Reports no additional complaints Eyes Reports no additional complaints ENT Reports no additional complaints Card Reports no additional complaints Resp Reports no additional complaints GI Reports no additional complaints Reports no additional complaints Physical exam (Primary Care) Vital Signs: Last Vital Signs Pulse 66 09/17/23 10:57 BP 128/76 09/17/23 10:57 Pulse Ox 100 09/17/23 10:57 Oxygen Delivery Method Room Air 09/17/23 10:57 BMI result Body Mass Index 28.8 Tobacco/Smoking Status: Tobacco use Status Tobacco use date assessed 09/17/23 09/17/23 11:01 Patient Tobacco Use Status Never used Tobacco 09/17/23 11:01 e-Cigarette/Vaping Use Never Used 09/17/23 10:55 Thrive Assessment: Date of Thrive Assessment Date Thrive assessed 08/22/22 09/17/23 10:55 Const General: no acute distress HENMT Mouth: Normal oral and palatal mucosa present Resp Effort & Inspection: normal respiratory effort Auscultation: clear to auscultation bilaterally Cardio Rhythm: regular rhythm Heart sounds: S1 normal heart sound present and S2 normal heart sound present GI Inspection: Yes normal to inspection Palpation (GI): Soft to palpation Percussion: Yes normal to percussion Auscultation: normal bowel sounds Results AMB Hemoglobin A1c AMB Hemoglobin A1c 7.4 % Last Edit by ANDER Flores on 09/17/23 11:19 Results Reviewed Results Reviewed: Laboratory Last Values Hgb A1c (Clinic) 7.4 % (4.0-6.0) H 09/17/23 11:19 Assessment and Plan Assessment & Plan (1) Type 1 diabetes mellitus without complications: Code(s): E10.9 - Type 1 diabetes mellitus without complications Plan: A1c is 7.4 in the office today but patient reports glucose readings 80% within the target. He has been exercising 5 times a week and plan at [employer]. Patient denies hypoglycemia. He reports fasting blood glucose generally less than 140. Patient will return for fasting blood work and A1c will be rechecked. He will continue the same regimen follow-up in 3 months with a fasting labs before (2) Hyperlipidemia LDL goal <100: Code(s): E78.5 - Hyperlipidemia, unspecified Plan: Continue statin (3) Hypertriglyceridemia: Code(s): E78.1 - Pure hyperglyceridemia Plan: Continue omega-3 supplement Orders: Orders AMB Hemoglobin A1c Today Z13.9 - Encounter for screening, unspecified Comprehensive [place]. Panel Fast 3 Months E10.9 - Type 1 diabetes mellitus without complications, E78.1 - Pure hyperglyceridemia, E78.5 - Hyperlipidemia, unspecified Lipid Panel 3 Months E10.9 - Type 1 diabetes mellitus without complications, E78.1 - Pure hyperglyceridemia, E78.5 - Hyperlipidemia, unspecified Complete Blood Count Auto Diff 3 Months E10.9 - Type 1 diabetes mellitus without complications, E78.1 - Pure hyperglyceridemia, E78.5 - Hyperlipidemia, unspecified Hemoglobin A1c 3 Months E10.9 - Type 1 diabetes mellitus without complications, E78.1 - Pure hyperglyceridemia, E78.5 - Hyperlipidemia, unspecified Hemoglobin A1c Today E10.9 - Type 1 diabetes mellitus without complications, E78.5 - Hyperlipidemia, unspecified Lipid Panel Today E10.9 - Type 1 diabetes mellitus without complications, E78.5 - Hyperlipidemia, unspecified Microalbumin, Random (w Creat) 3 Months E10.9 - Type 1 diabetes mellitus without complications, E78.1 - Pure hyperglyceridemia, E78.5 - Hyperlipidemia, unspecified Comprehensive [place]. Panel Fast Today E10.9 - Type 1 diabetes mellitus without complications, E78.5 - Hyperlipidemia, unspecified Medications: New blood-glucose sensor (FreeStyle Rene 3 Sensor device) As directed 2 ea 5RF Refilled triamcinolone acetonide 0.1% 1 appl topical DAILY 30 grams 2RF Coding Level of Care Code Est Pt Level 4 (83225) Diagnoses Type 1 diabetes mellitus without complications E10.9 Hyperlipidemia LDL goal <100 E78.5 Hypertriglyceridemia E78.1
[2023-09-17 10:57] VITALS: BP 128/76; PULSE 66; O2SAT 100; BMI 28.8
== END 2023-09-17 11:56 | disposition home or self-care (01) ==
PROVIDERS: PCP Internal Medicine; Visit Provider Internal Medicine
DX: E10.9 Type 1 diabetes mellitus without complications (principal); E78.5 Hyperlipidemia, unspecified; E78.1 Pure hyperglyceridemia
CPT/HCPCS: 83036; 99214

== ENCOUNTER 2023-09-18 07:55 | Outpatient (REF) | payer OTHER, SELFPAY ==
[2023-09-18 12:02] LABS: Estimated Average Glucose 137 mg/dL; Hemoglobin A1c % 6.4 % (<6.0)
[2023-09-18 12:54] LABS: Alanine Aminotransferase 23 U/L (0-40); Alkaline Phosphatase 59 U/L (39-117); Anion Gap 9 (12-20); Aspartate Amino Transferase 23 U/L (5-37); Bilirubin Total 0.4 mg/dL (0.0-1.0); Blood Urea Nitrogen 13 mg/dL (9-16); Calcium 8.7 mg/dL (8.4-10.2); Carbon Dioxide 25 mmol/L (22-29); Chloride 109 mmol/L (96-108); Cholesterol 130 mg/dL (<200); Estimated Glomerular Filt Rate > 60; Glucose Fasting 211 mg/dL (60-99); HDL Cholesterol 37 mg/dL (>40); LDL Cholesterol Calculated 57 mg/dL (<100); Potassium 4.4 mmol/L (3.3-5.1); Sodium 139 mmol/L (135-145); Total Protein 6.4 g/dL (6.5-8.0); Triglycerides 181 mg/dL (<150)
== END 2023-09-18 07:56 | disposition home or self-care (01) ==
LOC: HO.HMGCLDS 07:55
PROVIDERS: PCP Internal Medicine; Visit Provider Internal Medicine
DX: E10.9 Type 1 diabetes mellitus without complications (principal); E78.5 Hyperlipidemia, unspecified
CPT/HCPCS: 36415; 80053; 80061; 83036

== ENCOUNTER 2023-12-16 07:02 | Outpatient (REF) | payer OTHER, SELFPAY ==
[2023-12-16 10:19] LABS: MANUAL DIFF FLAG NO
[2023-12-16 10:38] LABS: Basophils Absolute Auto 0.1 X10*3/uL (0.0-0.2); Basophils Percent Auto 1.2 % (0-2); Eosinophils Absolute Auto 0.3 X10*3/uL (0.0-0.4); Eosinophils Percent Auto 5.9 % (0-4); Hematocrit 39.2 % (42.0-52.0); Hemoglobin 11.8 g/dl (14.0-18.0); Imm Gran Abs Auto 0.01 X10*3/uL (0.00-0.03); Imm Gran Pct Auto 0.2 % (0.0-0.4); Lymphocytes Percent Auto 23.3 % (20-40); Mean Corpuscular HGB Conc 30.1 g/dl (31.0-36.0); Mean Corpuscular Hemoglobin 23.8 pg (27.0-33.0); Mean Corpuscular Volume 79.2 fL (80.0-98.0); Mean Platelet Volume 11.3 fL (9.4-12.4); Monocytes Absolute Auto 0.3 X10*3/uL (0.1-1.2); Monocytes Percent Auto 7.8 % (2-11); Neutrophils Absolute Auto 2.6 x10*3/uL (2.0-8.3); Neutrophils Percent Auto 61.6 % (45-73); Platelet Count 221 X10*3/uL (160-400); Red Blood Count 4.95 X10*6/uL (4.60-5.80); Red Cell Distribution Width 16.7 % (11.0-16.0); White Blood Count 4.2 X10*3/uL (4.8-10.8)
[2023-12-16 10:49] LABS: Estimated Average Glucose 148 mg/dL; Hemoglobin A1c % 6.8 % (<6.0)
[2023-12-16 11:03] LABS: Alanine Aminotransferase 24 U/L (0-40); Albumin Level 4.1 g/dL (3.5-5.0); Alkaline Phosphatase 57 U/L (39-117); Anion Gap 13 (12-20); Aspartate Amino Transferase 20 U/L (5-37); Bilirubin Total 0.3 mg/dL (0.0-1.0); Blood Urea Nitrogen 19 mg/dL (9-16); Calcium 9.3 mg/dL (8.4-10.2); Carbon Dioxide 23 mmol/L (22-29); Chloride 109 mmol/L (96-108); Cholesterol 122 mg/dL (<200); Estimated Glomerular Filt Rate > 60; Glucose Fasting 169 mg/dL (60-99); HDL Cholesterol 40 mg/dL (>40); LDL Cholesterol Calculated 67 mg/dL (<100); Potassium 4.2 mmol/L (3.3-5.1); Sodium 141 mmol/L (135-145); Total Protein 6.3 g/dL (6.5-8.0); Triglycerides 77 mg/dL (<150)
[2023-12-16 11:31] LABS: Creatinine Urine 105.43 mg/dL; Microalbumin Urine < 5.0 mg/L
[2023-12-17 12:18] LABS: Iron 35 mcg/dL (45-160); Percent Iron Saturation 12 % (15-50); Total Iron Binding Capacity 298 mcg/dL (228-428); Unsaturated Iron Binding 263 ug/dL
== END 2023-12-16 07:03 | disposition home or self-care (01) ==
LOC: HO.HMGCLDS 07:02
PROVIDERS: PCP Internal Medicine; Visit Provider Internal Medicine
DX: E10.9 Type 1 diabetes mellitus without complications (principal); E78.5 Hyperlipidemia, unspecified; E78.1 Pure hyperglyceridemia
CPT/HCPCS: 36415; 80053; 80061; 82043; 82570; 83036; 83540; 85025

== ENCOUNTER 2023-12-17 10:56 | Outpatient (AMB) | payer OTHER, SELFPAY ==
[2023-12-17 11:05] VITALS: BP 134/80; PULSE 58; O2SAT 98; BMI 27.9
--- NOTE | 2023-12-17 11:05 | MHC.PC.OV ---
Vital Signs 12/17/23 11:05 Height 5 ft 7 in Weight 178 lb BMI 27.9 BP 134/80 Blood Pressure Location Rt brachial Position Sitting Pulse 58 Pulse Source Pulse Oximeter Pulse Oximetry (%) 98 Oxygen Delivery Method Room Air Intake Visit Reasons: 3 month follow up Intake Note: Pt is here today for 3 months follow up visit on labs.Pt states that he fell and hurt his R wrist. Allergies No Known Allergies [No Known Allergies*] Allergy (Verified 12/17/23 11:07) Medication List - Last Reconciled 12/17/23 by Aimee Burton MD alcohol swabs 1 pad topical BID-TID atorvastatin 40 mg PO BEDTIME blood sugar diagnostic (zahnarztzentrum.chTouch Ultra Blue Test Strip) four times a day blood-glucose sensor (FreeStyle Rene 3 Sensor device) As directed flash glucose sensor (FreeStyle Rene 2 Sensor kit) As directed every 2 weeks FreeStyle Rene 2 [place] (flash glucose scanning reader) As directed NS FreeStyle Rene 2 Sensor (flash glucose sensor) As directed NS icosapent ethyl 2 grams (2 x 1 gram) PO BID insulin glargine (Lantus Solostar U-100 Insulin) 20 units (0.2 mL) subcut BEDTIME 90 days insulin lispro (Humalog Shawn KwikPen (U-100)) 4-20 units subcutaneously 4 times a day; lancets (zahnarztzentrum.chTouch Delica Lancets) four times a day metformin 850 mg PO BID 90 days pen needle, diabetic (BD Ultra-Fine Franny Pen Needle) 1 ea subcut five times a day; triamcinolone acetonide 0.1% 1 appl topical DAILY Tobacco use date assessed: 09/17/23 Dental Screening Dental Screen Date: 09/17/23 HPI 3 month follow up HPI Details Pt presents for follow-up of insulin-dependent diabetes hyperlipidemia. Patient complains of right wrist pain swelling and tingling sensation in thumb and 2nd and 3rd finger for 2 weeks getting better. 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 Patient has been under stress related to his who was in inpatient alcohol detox and returned 2 weeks ago. [facility] Medical History (Updated 12/17/23 @ 12:09 by Aimee Burton MD) Normal colonoscopy Annual physical exam Hx of fracture of fibula Hypertriglyceridemia Acute renal failure DKA (diabetic ketoacidoses) Acute pancreatitis Cirrhosis, alcoholic Hyperlipidemia LDL goal <100 Type 1 diabetes mellitus without complications Surgical History Hx of hand surgery Family History Father Diabetes Mother Hyperlipidemia Paternal Uncle Diabetes Social History Household Members: Spouse and Children Housing: House Alcohol intake: former Year quit: 2019 Patient Tobacco Use Status: Never used Tobacco e-Cigarette/Vaping Use: Never Used Substance Use Type: Marijuana service: No Current occupational status: employed 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 1. Little interest or pleasure in doing things: not at all 2. Feeling down, depressed, or hopeless: not at all 3. Trouble falling or staying asleep, or sleeping too much: several days 4. Feeling tired or having little energy: not at all 5. Poor appetite or overeating: not at all 6. Feeling bad about yourself - or that you are a failure or have let yourself or your family down: not at all 7. Trouble concentrating on things, such as reading the newspaper or watching television: not at all 8. Moving or speaking so slowly that other people could have noticed. Or the opposite - being so fidgety or restless that you have been moving around a lot more than usual: not at all 9. Thoughts that you would be better off or of hurting yourself in some way: not at all Total score: 1 Depression Screening Interpretation: Negative Depression Screening Done: Yes Source: Developed by Drs. Esvin Calle, Tabby Saldivar, Raghav Carr and colleagues, with an educational spring from [email or web address]. Thrive Questionnaire Date Thrive assessed: 12/17/23 I am a: Patient What is your living situation today?: I have a steady place to live Within the past 12 months, did the food you bought not last and you didn't have the money to get more?: Never true Within the past 12 months, did you worry whether your food would run out before you got money to buy more?: Never true Do you have trouble paying for medicines?: No Do you have trouble getting transportation to medical appointments?: No Do you have trouble paying your heating and electricity bill?: No Do you have trouble taking care of your child, family member or friend?: No Do you have trouble with day-to-day activities such as bathing, preparing meals, shopping, managing finances, etc.?: No Are you currently unemployed and looking for a job?: No Are you interested in more education?: No Please select the resources that you would like help with: None THRIVE Score: 0 ELLA-7 AMB Questionnaire ELLA-7 Date ELLA - 7 assessed: 12/17/23 Feeling nervous, anxious, or on edge: 0 = Not at all Not being able to stop or control worryin = Not at all Worrying too much about different things: 0 = Not at all Trouble relaxin = Not at all Being so restless that it is hard to sit still: 0 = Not at all Becoming easily annoyed or irritable: 0 = Not at all Feeling afraid as if something awful might happen: 0 = Not at all Total ELLA-7 score (0-4 normal; 5-9 mild; 10-14 moderate; 15-21 severe): 0 Source: Developed by Drs. Esvin Calle, Tabby Saldivar, Raghav Carr and colleagues, with an educational spring from [email or web address]. Review of Systems Const All systems reviewed & are unremarkable except as noted in HPI and below ENT Reports no additional complaints Card Reports no additional complaints Resp Reports no additional complaints GI Reports no additional complaints Reports no additional complaints Physical exam (Primary Care) Vital Signs: Last Vital Signs Pulse 58 12/17/23 11:05 BP 134/80 12/17/23 11:05 Pulse Ox 98 12/17/23 11:05 Oxygen Delivery Method Room Air 12/17/23 11:05 BMI result Body Mass Index 27.9 Tobacco/Smoking Status: Tobacco use Status Tobacco use date assessed 09/17/23 12/17/23 11:06 Patient Tobacco Use Status Never used Tobacco 12/17/23 11:06 e-Cigarette/Vaping Use Never Used 12/17/23 11:06 PHQ-9: PHQ-9 Score PHQ-9: Total score 1 12/17/23 11:17 Depression Screening Interpretation: Negative Thrive Assessment: Date of Thrive Assessment Date Thrive assessed 12/17/23 12/17/23 11:17 Const General: no acute distress HENMT Face and sinus: Yes normal facial exam Resp Effort & Inspection: normal respiratory effort Auscultation: clear to auscultation bilaterally Cardio Rhythm: regular rhythm Heart sounds: S1 normal heart sound present and S2 normal heart sound present Extrem Other: There is tenderness over right wrist no erythema or warmth, Right upper extremity: wrist (Tinel's positive ) Details: ulnar pulse present Assessment and Plan Assessment & Plan (1) Anemia: Comment: Patient donates blood every 8 weeks Code(s): D64.9 - Anemia, unspecified Plan: Check iron studies B12 and FIT at home (2) Type 1 diabetes mellitus without complications: Code(s): E10.9 - Type 1 diabetes mellitus without complications Plan: A1c is 6.8, ADA diet regular physical activity discussed with the patient continue current medications follow-up in 3 months with a fasting labs before (3) Hyperlipidemia LDL goal <100: Code(s): E78.5 - Hyperlipidemia, unspecified Plan: Continue statin (4) Cirrhosis, alcoholic: Comment: 12/2019 Code(s): K70.30 - Alcoholic cirrhosis of liver without ascites (5) History of ETOH abuse: Comment: Sober since 2019 Code(s): F10.11 - Alcohol abuse, in remission Orders: Orders Vitamin B12 and Folate Today D64.9 - Anemia, unspecified Complete Blood Count Auto Diff 3 Months E10.9 - Type 1 diabetes mellitus without complications, E78.5 - Hyperlipidemia, unspecified IRON PROFILE Today D64.9 - Anemia, unspecified AMB Fecal Immunochemical Test Today Z12.11 - Encounter for screening for malignant neoplasm of colon, Z12.12 - Encounter for screening for malignant neoplasm of rectum Comprehensive [place]. Panel Fast 3 Months E10.9 - Type 1 diabetes mellitus without complications, E78.5 - Hyperlipidemia, unspecified Hemoglobin A1c 3 Months E10.9 - Type 1 diabetes mellitus without complications, E78.5 - Hyperlipidemia, unspecified Alpha Fetoprotein 3 Months F10.11 - Alcohol abuse, in remission, K70.30 - Alcoholic cirrhosis of liver without ascites Coding Level of Care Code Est Pt Level 3 (83610) Diagnoses Anemia D64.9 Type 1 diabetes mellitus without complications E10.9 Hyperlipidemia LDL goal <100 E78.5 Cirrhosis, alcoholic K70.30 History of ETOH abuse F10.11
== END 2023-12-17 12:09 | disposition home or self-care (01) ==
PROVIDERS: PCP Internal Medicine; Visit Provider Internal Medicine
DX: D64.9 Anemia, unspecified (principal); E10.9 Type 1 diabetes mellitus without complications; E78.5 Hyperlipidemia, unspecified; K70.30 Alcoholic cirrhosis of liver without ascites; F10.11 Alcohol abuse, in remission
CPT/HCPCS: 99213

== ENCOUNTER 2024-02-05 08:53 | Outpatient (AMB) | payer OTHER, SELFPAY ==
[2024-02-05 09:24] VITALS: BP 124/78; PULSE 46; O2SAT 98; BMI 29.0
--- NOTE | 2024-02-05 09:24 | MHC.PC.OV ---
Vital Signs 02/05/24 09:24 Height 5 ft 7 in Weight 185 lb BMI 29.0 BP 124/78 Blood Pressure Location Lt brachial Position Sitting Pulse 46 L Pulse Source Pulse Oximeter Pulse Oximetry (%) 98 Oxygen Delivery Method Room Air Intake Visit Reasons: Symptom worsen Intake Note: Pt is here today for a sick visit. Pt c/o numbness in his hands and no strength in his hands. Allergies No Known Allergies [No Known Allergies*] Allergy (Verified 02/05/24 09:26) Medication List - Last Reconciled 02/05/24 by Aimee Burton MD alcohol swabs 1 pad topical BID-TID atorvastatin 40 mg PO BEDTIME blood sugar diagnostic (BMP Sunstone CorporationTouch Ultra Blue Test Strip) four times a day blood-glucose sensor (FreeStyle Rene 3 Sensor device) As directed flash glucose sensor (FreeStyle Rene 2 Sensor kit) As directed every 2 weeks FreeStyle Rene 2 [place] (flash glucose scanning reader) As directed NS FreeStyle Rene 2 Sensor (flash glucose sensor) As directed NS icosapent ethyl 2 grams (2 x 1 gram) PO BID insulin glargine (Lantus Solostar U-100 Insulin) 20 units (0.2 mL) subcut BEDTIME 90 days insulin lispro (Humalog Shawn KwikPen (U-100)) 4-20 units subcutaneously 4 times a day; lancets (BMP Sunstone CorporationTouch Delica Lancets) four times a day meloxicam 15 mg PO DAILY metformin 850 mg PO BID 90 days pen needle, diabetic (BD Ultra-Fine Franny Pen Needle) 1 ea subcut five times a day; triamcinolone acetonide 0.1% 1 appl topical DAILY Tobacco use date assessed: 02/05/24 Dental Screening Dental Screen Date: 09/17/23 HPI Symptom worsen HPI Details Pt c/o persistent both hands numbness, pain and weakness R>L despite wearing wrist splints and taking NSAIDs. Insulin-dependent diabetes stable on current medications [facility] Medical History (Updated 02/05/24 @ 10:05 by Aimee Burton MD) Normal colonoscopy Annual physical exam Hx of fracture of fibula Hypertriglyceridemia Acute renal failure DKA (diabetic ketoacidoses) Acute pancreatitis Cirrhosis, alcoholic Hyperlipidemia LDL goal <100 Type 1 diabetes mellitus without complications Surgical History Hx of hand surgery Family History Father Diabetes Mother Hyperlipidemia Paternal Uncle Diabetes Social History Household Members: Spouse and Children Housing: House Alcohol intake: former Year quit: 2019 Patient Tobacco Use Status: Never used Tobacco e-Cigarette/Vaping Use: Never Used Substance Use Type: Marijuana service: No Current occupational status: employed 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 Esvin Calle, Tabby Saldivar, Raghav Carr and colleagues, with an educational spring from [employer]. Review of Systems Const All systems reviewed & are unremarkable except as noted in HPI and below ENT Reports no additional complaints Card Reports no additional complaints Resp Reports no additional complaints GI Reports no additional complaints Physical exam (Primary Care) Vital Signs: Last Vital Signs Pulse 46 L 02/05/24 09:24 BP 124/78 02/05/24 09:24 Pulse Ox 98 02/05/24 09:24 Oxygen Delivery Method Room Air 02/05/24 09:24 BMI result Body Mass Index 29.0 Tobacco/Smoking Status: Tobacco use Status Tobacco use date assessed 02/05/24 02/05/24 09:28 Patient Tobacco Use Status Never used Tobacco 02/05/24 09:28 e-Cigarette/Vaping Use Never Used 02/05/24 09:28 Thrive Assessment: Date of Thrive Assessment Date Thrive assessed 12/17/23 02/05/24 09:28 Const General: no acute distress Resp Effort & Inspection: normal respiratory effort Auscultation: clear to auscultation bilaterally Cardio Rhythm: regular rhythm Heart sounds: S1 normal heart sound present and S2 normal heart sound present Extrem General: Yes no clubbing, cyanosis or edema Right upper extremity: normal to inspection, full ROM, no joint enlargement and wrist (Tinel positive, motor strength 4/5 on the right and 5/5 on the left) Assessment and Plan Assessment & Plan (1) Carpal tunnel syndrome on both sides: Code(s): G56.03 - Carpal tunnel syndrome, bilateral upper limbs Plan: Obtain EMG to evaluate for carpal tunnel and referred to hand surgeon if positive Orders: Orders NE nerve conduction velocity Today G56.03 - Carpal tunnel syndrome, bilateral upper limbs Coding Level of Care Code Est Pt Level 3 (80276) Diagnoses Carpal tunnel syndrome on both sides G56.03
== END 2024-02-05 10:39 | disposition home or self-care (01) ==
PROVIDERS: PCP Internal Medicine; Visit Provider Internal Medicine
DX: G56.03 Carpal tunnel syndrome, bilateral upper limbs (principal)
CPT/HCPCS: 99213

== ENCOUNTER 2024-02-11 07:56 | Outpatient (REF) | payer OTHER, SELFPAY ==
--- NOTE | 2024-02-11 08:07 | EMG_ITS ---
Bilateral median and ulnar motor and sensory studies were performed. Bilateral radial sensory and median and lateral antecubital brachial sensory studies were performed and paraspinal muscles were tested with a needle. IMPRESSION: 1. Moderately severe bilateral median neuropathy across carpal tunnel. 2. 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 MD AMANDA Wesley/CLARITA / [id number]
== END 2024-02-11 07:57 | disposition home or self-care (01) ==
LOC: HO.NEURO 07:56
PROVIDERS: Visit Provider Internal Medicine
DX: G56.03 Carpal tunnel syndrome, bilateral upper limbs (principal)
CPT/HCPCS: 95886; 95913

== ENCOUNTER 2024-03-18 07:06 | Outpatient (REF) | payer OTHER, SELFPAY ==
[2024-03-18 10:14] LABS: MANUAL DIFF FLAG NO
[2024-03-18 10:23] LABS: Basophils Absolute Auto 0.1 X10*3/uL (0.0-0.2); Basophils Percent Auto 1.2 % (0-2); Eosinophils Absolute Auto 0.6 X10*3/uL (0.0-0.4); Eosinophils Percent Auto 10.7 % (0-4); Hematocrit 36.1 % (42.0-52.0); Hemoglobin 11.3 g/dl (14.0-18.0); Imm Gran Abs Auto 0.02 X10*3/uL (0.00-0.03); Imm Gran Pct Auto 0.4 % (0.0-0.4); Lymphocytes Absolute Auto 1.1 X10*3/uL (1.2-4.9); Lymphocytes Percent Auto 19.1 % (20-40); Mean Corpuscular HGB Conc 31.3 g/dl (31.0-36.0); Mean Corpuscular Hemoglobin 24.9 pg (27.0-33.0); Mean Corpuscular Volume 79.5 fL (80.0-98.0); Mean Platelet Volume 10.9 fL (9.4-12.4); Monocytes Absolute Auto 0.3 X10*3/uL (0.1-1.2); Neutrophils Absolute Auto 3.6 x10*3/uL (2.0-8.3); Neutrophils Percent Auto 62.6 % (45-73); Platelet Count 270 X10*3/uL (160-400); Red Blood Count 4.54 X10*6/uL (4.60-5.80); Red Cell Distribution Width 16.4 % (11.0-16.0); White Blood Count 5.7 X10*3/uL (4.8-10.8)
[2024-03-18 10:31] LABS: Estimated Average Glucose 143 mg/dL; Hemoglobin A1c % 6.6 % (<6.0)
[2024-03-18 10:42] LABS: Alanine Aminotransferase 15 U/L (0-40); Alkaline Phosphatase 63 U/L (39-117); Anion Gap 11 (12-20); Aspartate Amino Transferase 19 U/L (5-37); Bilirubin Total 0.3 mg/dL (0.0-1.0); Blood Urea Nitrogen 14 mg/dL (9-16); Calcium 8.8 mg/dL (8.4-10.2); Carbon Dioxide 24 mmol/L (22-29); Chloride 108 mmol/L (96-108); Estimated Glomerular Filt Rate > 60; Glucose Fasting 194 mg/dL (60-99); Iron 23 mcg/dL (45-160); Percent Iron Saturation 8 % (15-50); Potassium 4.3 mmol/L (3.3-5.1); Sodium 139 mmol/L (135-145); Total Iron Binding Capacity 277 mcg/dL (228-428); Total Protein 6.3 g/dL (6.5-8.0); Unsaturated Iron Binding 254 ug/dL
[2024-03-18 11:08] LABS: Folate 6.4 ng/mL (> or = 4.0); Vitamin B12 498 pg/mL (200-900)
[2024-03-19 12:33] LABS: Alpha Fetoprotein 2.1 ng/mL (<6.1)
== END 2024-03-18 07:07 | disposition home or self-care (01) ==
LOC: HO.HMGCLDS 07:06
PROVIDERS: PCP Internal Medicine; Visit Provider Internal Medicine
DX: D64.9 Anemia, unspecified (principal); E10.9 Type 1 diabetes mellitus without complications; E78.5 Hyperlipidemia, unspecified; F10.11 Alcohol abuse, in remission; K70.30 Alcoholic cirrhosis of liver without ascites; R10.9 Unspecified abdominal pain
CPT/HCPCS: 36415; 80053; 82105; 82607; 82746; 83036; 83540; 85025

== ENCOUNTER 2024-03-19 11:11 | Outpatient (AMB) | payer OTHER, SELFPAY ==
[2024-03-19 11:14] VITALS: BP 130/78; PULSE 51; O2SAT 100; BMI 28.8
--- NOTE | 2024-03-19 11:14 | A.OFFPC_ITS ---
Vital Signs 03/19/24 11:14 Height 5 ft 7 in Weight 184 lb BMI 28.8 BP 130/78 Blood Pressure Location Lt brachial Position Sitting Pulse 51 Pulse Source Pulse Oximeter Pulse Oximetry (%) 100 Oxygen Delivery Method Room Air Intake Visit Reasons: 3 month follow up Intake Note: Pt is here today for 3 months follow up visit on DM labs. Allergies No Known Allergies [No Known Allergies*] Allergy (Verified 03/19/24 11:16) Medication List - Last Reconciled 03/19/24 by Aimee Burton MD alcohol swabs 1 pad topical BID-TID atorvastatin 40 mg PO BEDTIME blood sugar diagnostic (TickPickTouch Ultra Blue Test Strip) four times a day blood-glucose sensor (FreeStyle Rene 3 Sensor device) As directed flash glucose sensor (FreeStyle Rene 2 Sensor kit) As directed every 2 weeks FreeStyle Rene 2 [place] (flash glucose scanning reader) As directed NS FreeStyle Rene 2 Sensor (flash glucose sensor) As directed NS icosapent ethyl 2 grams (2 x 1 gram) PO BID insulin glargine (Lantus Solostar U-100 Insulin) 20 units (0.2 mL) subcut BEDTIME 90 days insulin lispro (Humalog Shawn KwikPen (U-100)) 4-20 units subcutaneously 4 times a day; lancets (TickPickTouch Delica Lancets) four times a day meloxicam 15 mg PO DAILY metformin 850 mg PO BID 90 days pen needle, diabetic (BD Ultra-Fine Franny Pen Needle) 1 ea subcut five times a day; triamcinolone acetonide 0.1% 1 appl topical DAILY Tobacco use date assessed: 03/19/24 Dental Screening Dental Screen Date: 03/19/24 Did you have a dental visit in the last 12 months?: Yes Did you have a dental problem in the last 6 months where you did not have access to dental care?: No Was dental information given to patient?: Patient has dentist HPI 3 month follow up HPI Details Patient presents for the follow-up of insulin-dependent diabetes hyperlipidemia. Patient complains of persistent bilateral hand pain numbness and tingling sensation right more than left worse at night. He was diagnosed with moderate to severe carpal tunnel bilaterally and is waiting appointment for hand surgeon at [facility]. [facility] Medical History Normal colonoscopy Annual physical exam Hx of fracture of fibula Hypertriglyceridemia Acute renal failure DKA (diabetic ketoacidoses) Acute pancreatitis Cirrhosis, alcoholic Hyperlipidemia LDL goal <100 Type 1 diabetes mellitus without complications Surgical History Hx of hand surgery Family History Father Diabetes Mother Hyperlipidemia Paternal Uncle Diabetes Social History Household Members: Spouse and Children Housing: House Alcohol intake: former Year quit: 2019 Patient Tobacco Use Status: Never used Tobacco e-Cigarette/Vaping Use: Never Used Substance Use Type: Marijuana service: No Current occupational status: employed 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 1. Little interest or pleasure in doing things: not at all 2. Feeling down, depressed, or hopeless: not at all 3. Trouble falling or staying asleep, or sleeping too much: not at all 4. Feeling tired or having little energy: not at all 5. Poor appetite or overeating: not at all 6. Feeling bad about yourself - or that you are a failure or have let yourself or your family down: not at all 7. Trouble concentrating on things, such as reading the newspaper or watching television: not at all 8. Moving or speaking so slowly that other people could have noticed. Or the opposite - being so fidgety or restless that you have been moving around a lot more than usual: not at all 9. Thoughts that you would be better off or of hurting yourself in some way: not at all Total score: 0 Depression Screening Interpretation: Negative Depression Screening Done: Yes 39976 - PHQ-9 Billing: Yes Source: Developed by Drs. Esvin Calle, Tabby Saldivar, Raghav Carr and colleagues, with an educational spring from [employer] Thrive Questionnaire Date Thrive assessed: 03/19/24 I am a: Patient What is your living situation today?: I have a steady place to live Within the past 12 months, did the food you bought not last and you didn't have the money to get more?: Never true Within the past 12 months, did you worry whether your food would run out before you got money to buy more?: Never true Do you have trouble paying for medicines?: No Do you have trouble getting transportation to medical appointments?: No Do you have trouble paying your heating and electricity bill?: No Do you have trouble taking care of your child, family member or friend?: No Do you have trouble with day-to-day activities such as bathing, preparing meals, shopping, managing finances, etc.?: No Are you currently unemployed and looking for a job?: No Are you interested in more education?: No Please select the resources that you would like help with: Housing/Chcf Currently or been in a relationship where the following occur: No concerns reported THRIVE Score: 0 AUDIT C Alcohol Use Questionnaire (AUDIT-C) 1. How often do you have a drink containing alcohol?: Never 3. How often do you have six or more drinks on one occasion?: Never Total Score: 0 ELLA-7 AMB Questionnaire ELLA-7 Date ELLA - 7 assessed: 03/19/24 Feeling nervous, anxious, or on edge: 0 = Not at all Not being able to stop or control worryin = Not at all Worrying too much about different things: 0 = Not at all Trouble relaxin = Not at all Being so restless that it is hard to sit still: 0 = Not at all Becoming easily annoyed or irritable: 0 = Not at all Feeling afraid as if something awful might happen: 0 = Not at all Total ELLA-7 score (0-4 normal; 5-9 mild; 10-14 moderate; 15-21 severe): 0 Source: Developed by Drs. Esvin Calle, Tabby Saldivar, Raghav Carr and colleagues, with an educational spring from [employer] ELLA-7 Assessment Billing ELLA-7 Assessment Tool: ELLA-7 Assessment 23639 Review of Systems Const All systems reviewed & are unremarkable except as noted in HPI and below Eyes Reports no additional complaints ENT Reports no additional complaints Card Reports no additional complaints Resp Reports no additional complaints GI Reports no additional complaints Reports no additional complaints Physical exam (Primary Care) Vital Signs: Last Vital Signs Pulse 51 03/19/24 11:14 BP 130/78 03/19/24 11:14 Pulse Ox 100 03/19/24 11:14 Oxygen Delivery Method Room Air 03/19/24 11:14 BMI result Body Mass Index 28.8 Tobacco/Smoking Status: Tobacco use Status Tobacco use date assessed 03/19/24 03/19/24 11:18 Patient Tobacco Use Status Never used Tobacco 03/19/24 11:15 e-Cigarette/Vaping Use Never Used 03/19/24 11:15 PHQ-9: PHQ-9 Score PHQ-9: Total score 0 03/19/24 12:57 Depression Screening Interpretation: Negative Thrive Assessment: Date of Thrive Assessment Date Thrive assessed 03/19/24 03/19/24 11:15 Currently or been in a relationship where the following occur: No concerns reported Const General: no acute distress HENMT Face and sinus: Yes normal facial exam Eyes General: appearance normal, both eyes and all related structures Neck Neck: Yes supple Resp Effort & Inspection: normal respiratory effort Auscultation: clear to auscultation bilaterally Cardio Rhythm: regular rhythm Heart sounds: S1 normal heart sound present and S2 normal heart sound present GI Inspection: Yes normal to inspection Palpation (GI): Soft to palpation Percussion: Yes normal to percussion Auscultation: normal bowel sounds Assessment and Plan Assessment & Plan (1) Type 1 diabetes mellitus without complications: Code(s): E10.9 - Type 1 diabetes mellitus without complications Plan: A1c is 6.6, reviewing patient's blood glucose readings he has a lot of lows and highs. ADA diet eating small regular meals increasing protein and complex carbohydrates intake and regular exercise discussed with the patient. He will continue current medications follow-up in 3 months with a fasting labs before (2) Hyperlipidemia LDL goal <100: Code(s): E78.5 - Hyperlipidemia, unspecified Plan: Continue atorvastatin (3) Hyperplastic colon polyp: Comment: 10/02, hyperplastic polyps, given fact that 1 polyp did show some mild change, consider repeat colonoscopy 5 year Code(s): K63.5 - Polyp of colon (4) Annual physical exam: Code(s): Z00.00 - Encounter for general adult medical examination without abnormal findings (5) Carpal tunnel syndrome on both sides: Code(s): G56.03 - Carpal tunnel syndrome, bilateral upper limbs Plan: Patient will try a R wrist splint continue meloxicam as needed and follow-up with the hand surgeon Orders: Orders Comprehensive Likely. Panel Fast 4 Months E10.9 - Type 1 diabetes mellitus without complications, E78.5 - Hyperlipidemia, unspecified, K63.5 - Polyp of colon, Z00.00 - Encounter for general adult medical examination without abnormal findings Lipid Panel 4 Months E10.9 - Type 1 diabetes mellitus without complications, E78.5 - Hyperlipidemia, unspecified, K63.5 - Polyp of colon, Z00.00 - Encounter for general adult medical examination without abnormal findings Microalbumin, Random (w Creat) 4 Months E10.9 - Type 1 diabetes mellitus without complications, E78.5 - Hyperlipidemia, unspecified, K63.5 - Polyp of colon, Z00.00 - Encounter for general adult medical examination without abnormal findings Hemoglobin A1c 4 Months E10.9 - Type 1 diabetes mellitus without complications, E78.5 - Hyperlipidemia, unspecified, K63.5 - Polyp of colon, Z00.00 - Encounter for general adult medical examination without abnormal findings Coding Level of Care Code Est Pt Level 4 (39060) Diagnoses Type 1 diabetes mellitus without complications E10.9 Hyperlipidemia LDL goal <100 E78.5 Hyperplastic colon polyp K63.5 Annual physical exam Z00.00 Carpal tunnel syndrome on both sides G56.03 Additional Codes ELLA-7 Assessment Billing - ELLA-7 Assessment Tool: ELLA-7 Assessment 34470 ([id number])
== END 2024-03-19 12:34 | disposition home or self-care (01) ==
PROVIDERS: PCP Internal Medicine; Visit Provider Internal Medicine
DX: E10.9 Type 1 diabetes mellitus without complications (principal); E78.5 Hyperlipidemia, unspecified; K63.5 Polyp of colon; G56.03 Carpal tunnel syndrome, bilateral upper limbs
CPT/HCPCS: 99214

== ENCOUNTER 2024-07-14 07:51 | Outpatient (REF) | payer OTHER, SELFPAY ==
[2024-07-14 11:39] LABS: Creatinine Urine 129.97 mg/dL; Microalbumin Urine < 5.0 mg/L
[2024-07-14 11:56] LABS: Alanine Aminotransferase 12 U/L (0-40); Albumin Level 3.8 g/dL (3.5-5.0); Alkaline Phosphatase 61 U/L (39-117); Anion Gap 12 (12-20); Aspartate Amino Transferase 23 U/L (5-37); Bilirubin Total 0.4 mg/dL (0.0-1.0); Blood Urea Nitrogen 20 mg/dL (9-16); Calcium 8.9 mg/dL (8.4-10.2); Carbon Dioxide 24 mmol/L (22-29); Chloride 107 mmol/L (96-108); Cholesterol 121 mg/dL (<200); Estimated Glomerular Filt Rate > 60; Glucose Fasting 145 mg/dL (60-99); HDL Cholesterol 38 mg/dL (>40); LDL Cholesterol Calculated 74 mg/dL (<100); Potassium 4.4 mmol/L (3.3-5.1); Sodium 139 mmol/L (135-145); Total Protein 6.2 g/dL (6.5-8.0); Triglycerides 49 mg/dL (<150)
[2024-07-14 12:05] LABS: Estimated Average Glucose 140 mg/dL; Hemoglobin A1C 163.5762 umol/L; Hemoglobin A1c % 6.5 % (<6.0); Total Hemoglobin (HGBA1C) 3454.2394 umol/L
== END 2024-07-14 07:52 | disposition home or self-care (01) ==
LOC: HO.HMGCLDS 07:51
PROVIDERS: PCP Internal Medicine; Visit Provider Internal Medicine
DX: Z00.00 Encounter for general adult medical examination without abnormal findings (principal); K63.5 Polyp of colon; E10.9 Type 1 diabetes mellitus without complications; E78.5 Hyperlipidemia, unspecified
CPT/HCPCS: 36415; 80053; 80061; 82043; 82570; 83036

== ENCOUNTER 2024-07-16 11:31 | Outpatient (AMB) | payer OTHER, SELFPAY ==
--- NOTE | 2024-07-16 11:44 | A.OFFPC_ITS ---
Vital Signs 07/16/24 11:45 Height 5 ft 7 in Weight 185 lb BMI 29.0 BP 124/78 Blood Pressure Location Lt brachial Position Sitting Pulse 69 Pulse Source Pulse Oximeter Pulse Oximetry (%) 98 Oxygen Delivery Method Room Air Intake Visit Reasons: Annual PE Intake Note: Pt is here today for PE. Allergies No Known Allergies [No Known Allergies*] Allergy (Verified 07/16/24 11:46) Medication List - Last Reconciled 07/16/24 by Aimee Burton MD alcohol swabs 1 pad topical BID-TID atorvastatin 40 mg PO BEDTIME blood sugar diagnostic (OneTouch Ultra Blue Test Strip) four times a day blood-glucose sensor (FreeStyle Rene 3 Sensor device) As directed flash glucose sensor (FreeStyle Rene 2 Sensor kit) As directed every 2 weeks FreeStyle Rene 2 [place] (flash glucose scanning reader) As directed NS FreeStyle Rene 2 Sensor (flash glucose sensor) As directed NS icosapent ethyl 2 grams (2 x 1 gram) PO BID insulin glargine (Lantus Solostar U-100 Insulin) 20 units (0.2 mL) subcut BEDTIME 90 days insulin lispro (Humalog Shawn KwikPen (U-100)) 4-20 units subcutaneously 4 times a day; lancets (PPITouch Delica Lancets) four times a day meloxicam 15 mg PO BID metformin 850 mg PO BID 90 days pen needle, diabetic (BD Ultra-Fine Franny Pen Needle) 1 ea subcut five times a day; triamcinolone acetonide 0.1% 1 appl topical DAILY Tobacco use date assessed: 07/16/24 Dental Screening Dental Screen Date: 03/19/24 HPI Annual PE HPI Details Patient presents for physical. He complains of increased urinary frequency at night up to 3 times on and off for the last few months. He denies dysuria hematuria incomplete emptying of the bladder. [facility] Medical History Normal colonoscopy Annual physical exam Hx of fracture of fibula Hypertriglyceridemia Acute renal failure DKA (diabetic ketoacidoses) Acute pancreatitis Cirrhosis, alcoholic Hyperlipidemia LDL goal <100 Type 1 diabetes mellitus without complications Surgical History Hx of hand surgery Family History Father Diabetes Mother Hyperlipidemia Paternal Uncle Diabetes Social History Household Members: Spouse and Children Housing: House Alcohol intake: former Year quit: 2019 Patient Tobacco Use Status: Never used Tobacco e-Cigarette/Vaping Use: Never Used Substance Use Type: Marijuana service: No Current occupational status: employed 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 1. Little interest or pleasure in doing things: not at all 2. Feeling down, depressed, or hopeless: not at all 3. Trouble falling or staying asleep, or sleeping too much: not at all 4. Feeling tired or having little energy: not at all 5. Poor appetite or overeating: not at all 6. Feeling bad about yourself - or that you are a failure or have let yourself or your family down: not at all 7. Trouble concentrating on things, such as reading the newspaper or watching television: not at all 8. Moving or speaking so slowly that other people could have noticed. Or the opposite - being so fidgety or restless that you have been moving around a lot more than usual: not at all 9. Thoughts that you would be better off or of hurting yourself in some way: not at all Total score: 0 Depression Screening Interpretation: Negative Depression Screening Done: Yes 00723 - PHQ-9 Billing: Yes Source: Developed by Drs. Esvin Calle, Tabby Saldivar, Raghav Carr and colleagues, with an educational spring from [employer]. Thrive Questionnaire Date Thrive assessed: 07/16/24 I am a: Patient What is your living situation today?: I have a steady place to live Within the past 12 months, did the food you bought not last and you didn't have the money to get more?: Never true Within the past 12 months, did you worry whether your food would run out before you got money to buy more?: Never true Do you have trouble paying for medicines?: No Do you have trouble getting transportation to medical appointments?: No Do you have trouble paying your heating and electricity bill?: No Do you have trouble taking care of your child, family member or friend?: No Do you have trouble with day-to-day activities such as bathing, preparing meals, shopping, managing finances, etc.?: No Are you currently unemployed and looking for a job?: No Are you interested in more education?: No Please select the resources that you would like help with: None Currently or been in a relationship where the following occur: No concerns reported THRIVE Score: 0 AUDIT C Alcohol Use Questionnaire (AUDIT-C) 2. How many drinks containing alcohol do you have on a typical day when you are drinking?: 1 or 2 Total Score: 0 ELLA-7 AMB Questionnaire ELLA-7 Date ELLA - 7 assessed: 03/19/24 Source: Developed by Drs. Esvin Calle, Tabby Saldivar, Raghav Carr and colleagues, with an educational spring from [employer]. Review of Systems Const All systems reviewed & are unremarkable except as noted in HPI and below Eyes Reports no additional complaints ENT Reports no additional complaints Card Reports no additional complaints Resp Reports no additional complaints GI Reports no additional complaints Reports no additional complaints Physical exam (Primary Care) Vital Signs: Last Vital Signs Pulse 69 07/16/24 11:45 BP 124/78 07/16/24 11:45 Pulse Ox 98 07/16/24 11:45 Oxygen Delivery Method Room Air 07/16/24 11:45 BMI result Body Mass Index 29.0 Tobacco/Smoking Status: Tobacco use Status Tobacco use date assessed 07/16/24 07/16/24 11:48 Patient Tobacco Use Status Never used Tobacco 07/16/24 11:48 e-Cigarette/Vaping Use Never Used 07/16/24 11:48 PHQ-9: PHQ-9 Score PHQ-9: Total score 0 07/16/24 11:55 Depression Screening Interpretation: Negative Thrive Assessment: Date of Thrive Assessment Date Thrive assessed 07/16/24 07/16/24 11:55 Currently or been in a relationship where the following occur: No concerns reported Const General: no acute distress HENMT Head: Yes normal to inspection Ears: hearing grossly normal bilaterally Face and sinus: Yes normal facial exam Mouth: Normal oral and palatal mucosa present Eyes General: appearance normal, both eyes and all related structures Neck Neck: Yes no lymphadenopathy and Yes supple Resp Effort & Inspection: normal respiratory effort Auscultation: clear to auscultation bilaterally Cardio Rhythm: regular rhythm Heart sounds: S1 normal heart sound present and S2 normal heart sound present GI Inspection: Yes normal to inspection Palpation (GI): Soft to palpation Percussion: Yes normal to percussion Auscultation: normal bowel sounds Extrem Other: Diabetic foot exam there is a callus on plantar region of left foot, pulses are 1+ bilaterally , monofilament sensation intact bilaterally Coding Level of Care Code Est Pt Prev Care 40-64y(11993) Diagnoses Anemia D64.9 Urinary frequency R35.0 Type 1 diabetes mellitus without complications E10.9 Hyperlipidemia LDL goal <100 E78.5 Annual physical exam Z00.00 Additional Codes PHQ-9 - 55748 - PHQ-9 Billing: Yes ([id number]) Assessment & Plan Assessment & Plan (1) Anemia: Comment: Patient donates blood every 8 weeks Code(s): D64.9 - Anemia, unspecified Category: Medical Plan: Patient reports having persistently low CBC count according to blood bank and has not donated blood for 12 weeks. Check CBC and iron studies. patient had negative colonoscopy 4 years. He was giving Hemoccult cards (2) Urinary frequency: Code(s): R35.0 - Frequency of micturition Category: Medical Plan: Check bladder scan if there is no urinary retention oxybutynin will be tried (3) Type 1 diabetes mellitus without complications: Code(s): E10.9 - Type 1 diabetes mellitus without complications Category: Medical Plan: A1c is 6.5. Continue ADA diet regular exercise current medications follow-up in 4 months with a fasting labs before (4) Hyperlipidemia LDL goal <100: Code(s): E78.5 - Hyperlipidemia, unspecified Category: Medical Plan: Continue statin (5) Annual physical exam: Code(s): Z00.00 - Encounter for general adult medical examination without abnormal findings Category: Medical Plan: Well-balanced diet regular physical activity discussed with the patient Orders: Orders IRON PROFILE Today D64.9 - Anemia, unspecified Vitamin B12 and Folate Today D64.9 - Anemia, unspecified US bladder Today R35.0 - Frequency of micturition Hemoglobin A1c 4 Months D64.9 - Anemia, unspecified, E10.9 - Type 1 diabetes mellitus without complications, E78.5 - Hyperlipidemia, unspecified, Z00.00 - Encounter for general adult medical examination without abnormal findings Lipid Panel 4 Months D64.9 - Anemia, unspecified, E10.9 - Type 1 diabetes mellitus without complications, E78.5 - Hyperlipidemia, unspecified, Z00.00 - Encounter for general adult medical examination without abnormal findings Complete Blood Count Auto Diff 4 Months D64.9 - Anemia, unspecified, E10.9 - Type 1 diabetes mellitus without complications, E78.5 - Hyperlipidemia, unspecified, Z00.00 - Encounter for general adult medical examination without abnormal findings AMB Fecal Immunochemical Test Today Z12.11 - Encounter for screening for malignant neoplasm of colon, Z12.12 - Encounter for screening for malignant neoplasm of rectum Complete Blood Count Auto Diff Today D64.9 - Anemia, unspecified Comprehensive [place]. Panel Fast 4 Months D64.9 - Anemia, unspecified, E10.9 - Type 1 diabetes mellitus without complications, E78.5 - Hyperlipidemia, unspecified, Z00.00 - Encounter for general adult medical examination without abnormal findings PSA,Total (Free>4and<10) Today D64.9 - Anemia, unspecified, E10.9 - Type 1 diabetes mellitus without complications, E78.5 - Hyperlipidemia, unspecified, Z00.00 - Encounter for general adult medical examination without abnormal findings Microalbumin, Random (w Creat) 4 Months D64.9 - Anemia, unspecified, E10.9 - Type 1 diabetes mellitus without complications, E78.5 - Hyperlipidemia, unspecified, Z00.00 - Encounter for general adult medical examination without abnormal findings Referrals Podiatry Referral E10.9 - Type 1 diabetes mellitus without complications, L84 - Corns and callosities
[2024-07-16 11:45] VITALS: BP 124/78; PULSE 69; O2SAT 98; BMI 29.0
== END 2024-07-16 12:36 | disposition home or self-care (01) ==
PROVIDERS: PCP Internal Medicine; Visit Provider Internal Medicine
DX: D64.9 Anemia, unspecified (principal); R35.0 Frequency of micturition; E10.9 Type 1 diabetes mellitus without complications; E78.5 Hyperlipidemia, unspecified; Z00.00 Encounter for general adult medical examination without abnormal findings

== ENCOUNTER → 2024-07-16 11:31 | Outpatient (BNVA) | payer OTHER, SELFPAY | PROVIDERS: PCP Internal Medicine; Visit Provider Internal Medicine | DX: Z00.01 Encounter for general adult medical examination with abnormal findings (principal); R35.0 Frequency of micturition; D64.9 Anemia, unspecified; E10.9 Type 1 diabetes mellitus without complications; E78.5 Hyperlipidemia, unspecified; Z79.899 Other long term (current) drug therapy | CPT/HCPCS: 96127 ==

== ENCOUNTER 2024-07-16 12:45 | Outpatient (REF) | payer OTHER, SELFPAY ==
--- NOTE | ~2024-07-16 | US_ITS ---
EXAMINATION: US PELVIS LIMITED (BLADDER) CLINICAL INFORMATION: Increased frequency of micturition. Rule out retention. COMPARISON: CT scan dated December 22, 2019. TECHNIQUE: Real-time imaging of the bladder. FINDINGS: BLADDER: Well-distended. Bilateral ureteral jets are demonstrated. Prevoid bladder volume is 239 mL. Postvoid bladder volume is 21 mL. PROSTATE: Measures 4.2 x 3.2 x 3.1 cm, for an estimated volume of 22 mL. Scattered degenerative calcification. US/US bladder IMPRESSION: Essentially unremarkable study. Electronically signed by: Sathish Hamilton MD 07/17/2024 10:25 AM EST
== END 2024-07-16 12:46 | disposition home or self-care (01) ==
LOC: HO.HMGCX 12:45
PROVIDERS: PCP Internal Medicine; Visit Provider Internal Medicine
DX: R35.0 Frequency of micturition (principal)
CPT/HCPCS: 76857

== ENCOUNTER 2024-11-12 08:59 | Outpatient (AMB) | payer OTHER, SELFPAY ==
[2024-11-12 09:01] VITALS: BP 118/76; PULSE 65; RESP 18; TEMP 36.8; O2SAT 99; BMI 27.6
--- NOTE | 2024-11-12 09:01 | A.OFFPC_ITS ---
Vital Signs 11/12/24 09:01 Height 5 ft 7 in Weight 176 lb BMI 27.6 BP 118/76 Blood Pressure Location Lt brachial Position Sitting Respiration 18 Pulse 65 Pulse Source Pulse Oximeter Temp 98.2 F Temp Source Oral Pulse Oximetry (%) 99 Oxygen Delivery Method Room Air Intake Visit Reasons: Follow up Intake Note: Pt is here today for a follow up visit on DM. Allergies No Known Allergies [No Known Allergies*] Allergy (Verified 11/12/24 09:17) Medication List - Last Reconciled 11/12/24 by Aimee Burton MD alcohol swabs 1 pad topical BID-TID atorvastatin 40 mg PO BEDTIME blood sugar diagnostic (OneTouch Ultra Blue Test Strip) four times a day blood-glucose sensor (FreeStyle Rene 3 Sensor device) As directed flash glucose sensor (FreeStyle Rene 2 Sensor kit) As directed every 2 weeks FreeStyle Rene 2 [place] (flash glucose scanning reader) As directed NS FreeStyle Rene 2 Sensor (flash glucose sensor) As directed NS icosapent ethyl 2 grams (2 x 1 gram) PO BID insulin glargine-yfgn (Semglee (insulin glargine-yfgn) Pen) 24 units (0.24 mL) subcut DAILY insulin lispro (Humalog Shawn KwikPen (U-100)) 4-20 units subcutaneously 4 times a day; lancets (OneTouch Delica Lancets) four times a day meloxicam 15 mg PO .qd metformin 850 mg PO BID 90 days pen needle, diabetic (BD Ultra-Fine Franny Pen Needle) 1 ea subcut five times a day; triamcinolone acetonide 0.1% 1 appl topical DAILY Tobacco use date assessed: 11/12/24 Dental Screening Dental Screen Date: 11/12/24 Did you have a dental visit in the last 12 months?: Yes Did you have a dental problem in the last 6 months where you did not have access to dental care?: No Was dental information given to patient?: Patient has dentist HPI Follow up HPI Details Patient presents for the follow-up of left insulin-dependent diabetes hyperlipidemia stable on current medications. Patient reports being in the normal glycemic range according to Libre2 over 90% of the time. Patient had the right carpal surgery and will have left with Dr. Daley [facility] Medical History Normal colonoscopy Annual physical exam Hx of fracture of fibula Hypertriglyceridemia Acute renal failure DKA (diabetic ketoacidoses) Acute pancreatitis Cirrhosis, alcoholic Hyperlipidemia LDL goal <100 Type 1 diabetes mellitus without complications Surgical History Hx of hand surgery Family History Father Diabetes Mother Hyperlipidemia Paternal Uncle Diabetes Social History Household Members: Spouse and Children Housing: House Alcohol intake: former Year quit: 2019 Patient Tobacco Use Status: Never used Tobacco e-Cigarette/Vaping Use: Never Used Substance Use Type: Marijuana service: No Current occupational status: employed 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 1. Little interest or pleasure in doing things: not at all 2. Feeling down, depressed, or hopeless: not at all 3. Trouble falling or staying asleep, or sleeping too much: more than half the days 4. Feeling tired or having little energy: more than half the days 5. Poor appetite or overeating: not at all 6. Feeling bad about yourself - or that you are a failure or have let yourself or your family down: not at all 7. Trouble concentrating on things, such as reading the newspaper or watching television: not at all 8. Moving or speaking so slowly that other people could have noticed. Or the opposite - being so fidgety or restless that you have been moving around a lot more than usual: not at all 9. Thoughts that you would be better off or of hurting yourself in some way: not at all Total score: 4 Depression Screening Interpretation: Negative Depression Screening Done: Yes 19103 - PHQ-9 Billing: Yes Source: Developed by Drs. Esvin Calle, Tabby Saldivar, Raghav Carr and colleagues, with an educational spring from [employer]. Thrive Questionnaire Date Thrive assessed: 11/12/24 I am a: Patient What is your living situation today?: I have a steady place to live Within the past 12 months, did the food you bought not last and you didn't have the money to get more?: Never true Within the past 12 months, did you worry whether your food would run out before you got money to buy more?: Never true Do you have trouble paying for medicines?: No Do you have trouble getting transportation to medical appointments?: No Do you have trouble paying your heating and electricity bill?: No Do you have trouble taking care of your child, family member or friend?: No Do you have trouble with day-to-day activities such as bathing, preparing meals, shopping, managing finances, etc.?: No Are you currently unemployed and looking for a job?: No Are you interested in more education?: No Please select the resources that you would like help with: None Currently or been in a relationship where the following occur: No concerns reported THRIVE Score: 0 AUDIT C Alcohol Use Questionnaire (AUDIT-C) 1. How often do you have a drink containing alcohol?: Never 3. How often do you have six or more drinks on one occasion?: Never Total Score: 0 ELLA-7 AMB Questionnaire ELLA-7 Date ELLA - 7 assessed: 11/12/24 Feeling nervous, anxious, or on edge: 0 = Not at all Not being able to stop or control worryin = Not at all Worrying too much about different things: 0 = Not at all Trouble relaxin = Not at all Being so restless that it is hard to sit still: 1 = Several days Becoming easily annoyed or irritable: 0 = Not at all Feeling afraid as if something awful might happen: 0 = Not at all Total ELLA-7 score (0-4 normal; 5-9 mild; 10-14 moderate; 15-21 severe): 1 Source: Developed by Drs. Esvin Calle, Tabby Saldivar, Raghav Carr and colleagues, with an educational spring from [employer]. ELLA-7 Assessment Billing ELLA-7 Assessment Tool: ELLA-7 Assessment 48074 Review of Systems Const All systems reviewed & are unremarkable except as noted in HPI and below Eyes Reports no additional complaints ENT Reports no additional complaints Card Reports no additional complaints Resp Reports no additional complaints GI Reports no additional complaints Reports no additional complaints Physical exam (Primary Care) Vital Signs: Last Vital Signs Temp 98.2 F 11/12/24 09:01 Pulse 65 11/12/24 09:01 Resp 18 11/12/24 09:01 BP 118/76 11/12/24 09:01 Pulse Ox 99 11/12/24 09:01 Oxygen Delivery Method Room Air 11/12/24 09:01 BMI result Body Mass Index 27.6 Tobacco/Smoking Status: Tobacco use Status Tobacco use date assessed 11/12/24 11/12/24 09:04 Patient Tobacco Use Status Never used Tobacco 11/12/24 09:02 e-Cigarette/Vaping Use Never Used 11/12/24 09:02 PHQ-9: PHQ-9 Score PHQ-9: Total score 4 11/12/24 10:07 Depression Screening Interpretation: Negative Thrive Assessment: Date of Thrive Assessment Date Thrive assessed 11/12/24 11/12/24 09:04 Currently or been in a relationship where the following occur: No concerns reported Const General: no acute distress HENMT Head: Yes normal to inspection Ears: hearing grossly normal bilaterally Neck Neck: Yes no lymphadenopathy and Yes supple Resp Effort & Inspection: normal respiratory effort Auscultation: clear to auscultation bilaterally Cardio Rhythm: regular rhythm Heart sounds: S1 normal heart sound present and S2 normal heart sound present GI Inspection: Yes normal to inspection Palpation (GI): Soft to palpation Percussion: Yes normal to percussion Auscultation: normal bowel sounds Coding Level of Care Code Est Pt Level 4 (68497) Diagnoses Carpal tunnel syndrome of left wrist G56.02 Type 1 diabetes mellitus without complications E10.9 Hyperlipidemia LDL goal <100 E78.5 Cirrhosis, alcoholic K70.30 Additional Codes ELLA-7 Assessment Billing - ELLA-7 Assessment Tool: ELLA-7 Assessment 29687 ([id number]) PHQ-9 - 65384 - PHQ-9 Billing: Yes ([id number]) Assessment & Plan Assessment & Plan (1) Carpal tunnel syndrome of left wrist: Code(s): G56.02 - Carpal tunnel syndrome, left upper limb Category: Medical Plan: Follow-up with hand surgeon (2) Type 1 diabetes mellitus without complications: Comment: Patient refused Pneumovax 11/2024 Code(s): E10.9 - Type 1 diabetes mellitus without complications Category: Medical Plan: Patient will return for fasting blood work including A1c, continue current medications ADA diet regular exercise follow-up in 4 months with a fasting labs before (3) Hyperlipidemia LDL goal <100: Code(s): E78.5 - Hyperlipidemia, unspecified Category: Medical Plan: Continue statin (4) Cirrhosis, alcoholic: Comment: 12/2019, compensated Code(s): K70.30 - Alcoholic cirrhosis of liver without ascites Category: Medical Plan: Check alpha fetoprotein Orders: Orders Comprehensive [facility]. Panel Fast 4 Months E10.9 - Type 1 diabetes mellitus without complications, E78.5 - Hyperlipidemia, unspecified, K70.30 - Alcoholic cirrhosis of liver without ascites Hemoglobin A1c 4 Months E10.9 - Type 1 diabetes mellitus without complications, E78.5 - Hyperlipidemia, unspecified, K70.30 - Alcoholic cirrhosis of liver without ascites Lipid Panel 4 Months E10.9 - Type 1 diabetes mellitus without complications, E78.5 - Hyperlipidemia, unspecified, K70.30 - Alcoholic cirrhosis of liver without ascites Microalbumin, Random (w Creat) 4 Months E10.9 - Type 1 diabetes mellitus without complications, E78.5 - Hyperlipidemia, unspecified, K70.30 - Alcoholic cirrhosis of liver without ascites Complete Blood Count Auto Diff 4 Months E10.9 - Type 1 diabetes mellitus without complications, E78.5 - Hyperlipidemia, unspecified, K70.30 - Alcoholic cirrhosis of liver without ascites Alpha Fetoprotein 4 Months K70.30 - Alcoholic cirrhosis of liver without ascites Referrals Hand Surgery Referral G56.02 - Carpal tunnel syndrome, left upper limb Medications: Discontinued FreeStyle Rene 2 [place] (flash glucose scanning reader) Discontinued Reason: Doctor's Order As directed 1 ea 0RF NS flash glucose sensor (FreeStyle Rene 2 Sensor kit) Discontinued Reason: Doctor's Order As directed every 2 weeks 6 ea 1RF FreeStyle Rene 2 Sensor (flash glucose sensor) Discontinued Reason: Change Referral Type As directed 6 ea 3RF NS E10.9 - Type 1 diabetes mellitus without complications
--- OUTSIDE RECORDS SUMMARY | 2024-11-12 09:12 | XMS_ITS ---
Author Organization [facility] Address [address] [place] [address] Care Team Providers Care Analytical Laboratory Technician Name Role Phone Aimee Burton MD Primary Care Provider Rosa Nieves [phone] REASON FOR VISIT [facility] En[facility] Encounter Location Date Provider Diagnosis [address] [address] 09/17/2024 Rosa Paul Plan Of Treatment Next Appt Details Provider Name:Rosa peraza, 01/08/2025 10:15:00 AM, [address] [facility], [place], [address], Progress Notes * Petros HECKDOB: 0 (54 yo M)Acc No.[id number]:09/17/2024 Patient:?Petros HECK :1970???Age:54 Y???Sex:Male Address:[address] [place] [address], [address] * true * Date:? Generated for Printi sundar/Tania/eTransmitting on:?11/12/2024 09:12 AM EDT
--- OUTSIDE RECORDS SUMMARY | 2024-11-12 09:12 | XMS_ITS | Clinical Summary ---
Author Organization [facility] Address [address] [place] [address] Phone Care Team Providers Care Optical Effects Layout Person Name Role Phone Aimee Burton MD Primary Care Provider [phone] Allergies No known active allergies Medications metFORMIN (GLUCOPHAGE) 850 mg tablet Take 1,000 mg by mouth 2 (two) times a day with meals. Active insulin glargine,hum.re c.anlog (SEMGLEE PEN U-100 INSULIN SUBQ) Inject 24 Units under the skin at bedtime. Active insulin lispro (HUMALOG ALEXUS KWIKPEN U-100 SUBQ) Inject 4-8 Units under the skin 3 (three) times a day. Sliding scale 4-8 units prior to meal Active atorvastatin (LIPITOR) 40 mg tablet Take 1 tablet (40 mg total) by mouth 1 (one) time each day. Active ibuprofen (ADVIL,MOTRIN) 600 mg tablet Take 1 tablet (600 mg total) by mouth 3 (three) times a day with meals. 15 tablet 07/06/2024 Active oxyCODONE (ROXICODONE) 5 mg immediate release tablet Take 1 tablet (5 mg total) by mouth every 6 (six) hours if needed for severe pain for up to 6 doses. Max Daily Amount: 20 mg 6 tablet 07/06/2024 Active Active Problems Problem Noted Date Diagnosed Date Carpal tunnel syndrome, right upper limb 024 Surgical History Surgery Date Site/Laterality Comments HAND SURGERY PROCEDURE: HISTORICAL HAND SURGERY; COMMENT: right hand - tendon repair OTHER SURGICAL HISTORY 1993 PROCEDURE: MI OPEN TREATMENT TEMPOROMANDIBULAR DISLOCATION; COMMENT: wired shut after punch WISDOM TOOTH EXTRACTION 1989 PROCEDURE: HISTORICAL WISDOM TEETH EXTRACTION ORIF TIBIA & FIBULA FRACTURES Right Medical History Medical History Date Comments Hand injury 1997 DX:Hand injury; COMMENT: sliced tendons - right hand - repaired HL (hearing loss) r ear Diabetes mellitus (CMS/HCC) Neuromuscular disorder (CMS/HCC) cts b Family History Medical History Relation Name Comments Breast cancer Mother's side 1 (37) cousin Relation Name Status Comments Daughter Alive well Father Alive (79) DMII Maternal Grandfather (Age 78) AM I - CAD Maternal Grandmother (Age 50) AM I - CAD Mother Alive (68) TIAs, Mother's side 1 Mother's side 2 Paternal Grandfather (Age 80s) o ld age Paternal Grandmother (Age 80s) o ld age; Alzheimer's Sister Alive x1 well Social History Tobacco Use Types Packs/Day Years Used Date Smoking Tobacco: Never Smokeless Tobacco: Never Tobacco Cessation:Counseling Given: Not Answered Alcohol Use Standard Drinks/Week Comments Never 0 (1 standard drink = 0.6 oz pur e alcohol) Interpersonal Safety Answer Date Record ed Physical Abuse 07/06/2024 Verbal Abuse 07/06/2024 Sex and Gender Information Value Date Recorded Sex Assigned at Male 07/06/2024 7:47 AM EST Legal Sex Male 5:14 PM EST Gender Identity Male 07/06/2024 7:47 AM EST Sexual Orientation Straight 07/06/2024 7: 47 AM EST Obstetrics History Last Filed Vital Signs Vital Sign Reading Time Taken Comments Blood Pressure 153/96 07/06/2024 11:09 AM EST Pulse 55 07/06/2024 11:09 AM EST Temperature 36.4 ??C (97.5 ??F) 07/06/2024 11:[address] Respiratory Rate 20 07/06/2024 11:09 AM EST Oxygen Saturation 100% 07/06/2024 8:02 AM EST Inhaled Oxygen Concentration - - Weight 81.6 kg (180 lb) 07/06/2024 8:11 AM EST Height 170.2 cm (5' 7 ) 07/06/2024 8:11 AM EST Body Mass Index 28.19 07/06/2024 8:11 AM EST Plan of Treatment Health Maintenance Due Date Last Done Comments Diabetes: Annual GFR (Glomer ular Filtration Rate) 1970 Diabetes: Annual Foot Exam 1980 Diabetes: Annual Retina Eye Exam 1980 Hepatitis B Vaccines (1 of 3 - 19+ 3-dose series) 1989 DTaP,Tdap,and Td Vaccines (2 - Td or Tdap) 06/22/2018 06/22/2008 Pneumococcal Vaccine: 50+ Ye ars (1 of 1 - PCV) 2020 Zoster Vaccines (1 of 2) 2020 COVID-19 Vaccine ( - 2023-2 5 season) 2024 Cholesterol Screening (Lipid Panel) 06/13/2024 Colorectal Cancer Screening: Colonoscopy 06/13/2024 Depression Screening 06/13/2024 Diabetes: Annual Urine Albumin-Creatinine Ratio (uACR) 06/13/2024 Diabetes: Blood Sugar Contro l Test (HGBA1C) 06/13/2024 HIV Screening 06/13/2024 Hepatitis C Screening 06/13/2024 Social Influencers of Health Screening 06/13/2024 Influenza Vaccine (Season Ended) 2025 06/22/20 08 HIB Vaccines Aged Out No longer eligi ble based on patient's age to complete this topic HPV Vaccines Aged Out No longer eligi ble based on patient's age to complete this topic Hepatitis A Vaccines Aged Out No long er eligible based on patient's age to complete this topic IPV Vaccines Aged Out No longer eligi ble based on patient's age to complete this topic MMR Vaccines Aged Out No longer eligi ble based on patient's age to complete this topic Meningococcal ACWY Vaccine Aged Out N o longer eligible based on patient's age to complete this topic Meningococcal B Vacine Aged Out No lo nger eligible based on patient's age to complete this topic Pneumococcal Vaccine: Pediat rics (0 to 5 Years) and At-Risk Patients (6 to 64 Years) Aged Out No longer eligi ble based on patient's age to complete this topic RSV Immunization Patients Un ariane 20 months Aged Out No longer eligible b ased on patient's age to complete this topic Varicella Vaccines Aged Out No longer eligible based on patient's age to complete this topic Insurance [employer] Advance Directives * Full Code - Default (Latest Code Status on File) Date Activated Date Inactivated Comments 07/06/2024 8:08 AM 07/06/2024 2:44 PM This is or ariane is used when code status has not been discussed with the patient, or code status is otherwise unknown/unconfirmed To update the patient's code status, place a code status order. Do not modify or discontinue any currently active code status orders. Care Teams Optical Effects Layout Person Relationship Specialty Start Date End Date Aimee Burton MD [address] [facility] [place] [address] PCP - General 02/25/24
--- OUTSIDE RECORDS SUMMARY | 2024-11-12 09:13 | XMS_ITS ---
Author Organization [facility] Address [address] [place] [address] Care Team Providers Care Manager Process Name Role Phone Aimee Burton MD Primary Care Provider Rosa Nieves [phone] REASON FOR VISIT bought vircin Encounters Encounter Location Date [facility] [place] [phone] 10/30/2024 Rosa Paul Plan Of Treatment Next Appt Details Provider Name:Rosa peraza, 01/08/2025 10:15:00 AM, [address] [place], [address], Progress Notes * Petros HECKDOB: 0 (54 yo M)Acc No.[id number]:10/30/2024 Patient:?Petros HECK :1970???Age:54 Y???Sex:Male Address:[address] [place] [address], [address] * true * Date:? Generated for Printi sundar/Tania/eTransmitting on:?11/12/2024 09:12 AM EDT
--- OUTSIDE RECORDS SUMMARY | 2024-11-12 09:13 | XMS_ITS | Patient Health Record ---
[facility] Address [address] [place] [address] Care Team Providers Care Senior Sales Operations Manager Name Role Phone Aimee Burton MD Primary Care Provider Rosa Nieves Unavailable [phone] Allergies No Known Allergies Results Component Value Reference Range Notes HEMOGLOBIN A1C (GLYCOHEMOGLO BIN) Reviewed date:10/30/2024 09:59:27 AM Interpretation: Performing Lab: Notes/Report: HEMOGLOBIN A1C % (HH) 6.5 HEMOGLOBIN A1C (GLYCOHEMOGLO BIN) Reviewed date:09/17/2024 08:26:16 AM Interpretation: Performing Lab: Notes/Report: HEMOGLOBIN A1C % (HH) 6.5 Reason For Referral No Information Medications Medication SIG (Take, Route, Fr equency, Duration) Notes Start Date End Date Status Atorvastatin Calcium Active metFORMIN HCl Active HumaLOG Active Semglee Active Icosapent Ethyl Acti ve Meloxicam Active Social History Tobacco Use: Social History Observation Description Date Details (start date - stop date) Never Smoker NA - NA Tobacco use other than smoking: Question Answer Notes Are you an other tobacco user? No Tobacco Control (Standard) Question Answer Notes Tobacco use: Nonsmoker Additional Findings: Tobacco non-user Current no nsmoker AUDIT-C (Standard) Question Answer Notes Did you have a drink containing alcohol in the p ast year? No Points 0 Interpretation Negative Problems Problem Type SNOMED Code ICD Code Onset Dates Problem Status W/U Status Risk Notes Problem Plantar wart ([id number]) Plantar wart (B07.0) Active confirmed Problem [id number] Diabetes mellitu s without complication (E11.9) Active confirmed Vital Signs Blood pressure diastolic 73 mm Hg 10/30/2024 Height 5 ft 7in in 10/30/2024 Blood pressure systolic 126 mm Hg 10/30/2024 Weight 180 lbs 10/30/2024 BMI 28.19 kg/m2 10/30/2024 Encounters Encounter Location Date Provider Diagnosis [address] [address] 09/17/2024 Rosa Paul Right foot pain M79.671 ; Plantar wart B07.0 ; Left foot pain M79.672 and Diabetes mellitus without complication E11.9 [facility] [address] 10/30/2024 Rosa Paul Right foot pain M79.671 ; Plantar wart B07.0 ; Left foot pain M79.672 and Diabetes mellitus without complication E11.[address] [address] 09/15/2024 [facility] [address] 09/17/2024 Rosa Paul [facility] [address] [address] 10/30/2024 Rosa Paul Assessments Encounter Date Diagnosis (ICD Code) Assessment Notes Treatment Notes Treatment Clinical Notes Section Notes 09/17/2024 Right foot pain (ICD-10 - M79.671) 10/30/2024 Right foot pain (ICD-10 - M79.671) 09/17/2024 Left foot pain (ICD-10 - M79.672) 09/17/2024 Plantar wart (ICD-10 - B07.0) 10/30/2024 Plantar wart (ICD-10 - B07.0) 09/17/2024 Diabetes mellitus without complication (ICD-10 - E11.9) 10/30/2024 Left foot pain (ICD-10 - M79.672) 10/30/2024 Diabetes mellitus without complication (ICD-10 - E11.9) Plan Of Treatment Next Appt Details Provider Name:Rosa peraza, 01/08/2025 10:15:00 AM, [address] [place], [address], Insurance Providers Payer Name Payer Address Payer Phone Subscriber Number Group Number Insured Name Patient Relationship to Insured Coverage Start Date Coverage End Date [employer] [address] [place] [id number] [phone] [id number] Arpan Petros Self - patient is the insured 3 Medical (General) History Medical History History ICD Code High Blood Pressure Joint implants/screws Diabetes mellitus Surgical History Surgery Date(Month/Year) carpal tunnel surgery 08/04 broken leg 2018
--- OUTSIDE RECORDS SUMMARY | 2024-11-12 09:13 | XMS_ITS ---
Author Organization [facility] Address [address] [place] [address] Care Team Providers Care Tiler'S Assistant Name Role Phone Aimee Burton MD Primary Care Provider Rosa Nieves Unavailable [phone] Allergies No Known Allergies REASON FOR VISIT Wart(s) Medications Medication SIG (Take, Route, Fr equency, Duration) Notes Start Date End Date Status Atorvastatin Calcium Active metFORMIN HCl Active Semglee Active Icosapent Ethyl Acti ve Meloxicam Active HumaLOG Active Social History Tobacco Use: Social History [...] ast year? No Points 0 Interpretation Negative Vital Signs Height 5 ft 7in in 10/30/2024 Weight 180 lbs 10/30/2024 BMI 28.19 kg/m2 10/30/2024 Blood pressure systolic 126 mm Hg 10/31/19 25 Blood pressure diastolic 73 mm Hg 025 Encounters Encounter Location Date Provider Diagnosis [facility] [address] [place] [address] 10/30/2024 Rosa Paul Right foot pain M79.671 ; Plantar wart B07.0 ; Left foot pain M79.672 and Diabetes mellitus without complication E11.9 Assessments Encounter Date Diagnosis (ICD Code) Assessment Notes Treatment Notes Treatment Clinical Notes Section Notes 10/30/2024 Right foot pain (ICD-10 - M79.671) 10/30/2024 Plantar wart (ICD-10 - B07.0) 10/30/2024 Left foot pain (ICD-10 - M79.672) 10/30/2024 Diabetes mellitus without complication (ICD-10 - E11.9) Plan Of Treatment Next Appt Details Follow Up: 2 Months, Reason: Provider Name:Rosa peraza, 01/08/2025 10:15:00 AM, [address] [place], [address], Procedure Notes * Category Sub-Category Detail Notes Wart Treatment Procedure Verruca, as desc ribed in exam, were debrided to pin- point bleeding margins with sterile 15 surgical blade, silver nitrate chemocautery applied, recomm. immune-boosting meds such as zinc, recomm. follow up with topical chemosurgical agents,, recomm Vircin Antiviral cream as directed under occlusion daily Progress Notes * Petros HECKDOB: 0 (54 yo M)Acc No.[id number]:10/30/2024 Progress Notes Patient:?UMANGPetros Provider:?Rosa Paul DPM :1970???Age:54 Y???Sex:Male Woody e:10/30/2024 Address:[address] [place], [place] [id number] Pcp:Aimee Burton MD Subjective: * Chief Complaints: * ???Wart(s) * HPI: ???Skin problems:?Pt States PCP Visit: ?DATE?07/30/2024 ?Nature:?warts.?Location:?B/L.?Duration:?several years.? * ROS:?General/Constitutional:?Nausea?denies.?Vomiting?denies.?Hunger Thirst?denies.?Loss appetite?denies.?Chills?denies.?Fatigue?denies.?Fever?denies.?Night Sweats?denies.?Unexplained weight loss?denies.?Unexplained weight gain?denies.?HEENTM:?Dentures?denies.?Dizziness?denies.?Glasses/contacts?denies.?Retinopathy?den ies.?Blurred/double vision?denies.?TMJ?denies.?Discharge/drainage?denies.?Implants?denies.?Sore throat?denies.?Dental implants?denies.?Hard of hearing ?denies.?Difficulty chewing/swallowing/speaking?denies.?Nose bleeds?denies.?Sore mouth?denies.?Respiratory:?On O xygen?denies.?Pneumonia/pleurisy?denies.?Bronchitis?denies.?Emphysema?denies.?Co ughing?denies.?Cough blood?denies.?Shortness of breath?denies.?Wheezing?denies.?Cardiovascular:?Pacemaker?denies.?MVP?denies.?WPW?denies.?CHF?denies.?Heart attack?denies.?Septal defect?denies.?Rapid beat?denies.?Chest pain ?denies.?Atrial Fib.?denies.?Murmur/Palpitations?denies.?Gastrointestinal:?Hemorrhoids?denies.?Stomach/Abdominal pain?denies.?Dark blood stool?denies.?Irritable bowel ?denies.?Constipation?denies.?Diarrhea?denies.?Hematology:?Swelling?denies.?Clots?denies.?Varicose Veins?denies.?Bruising?denies.?Bleeding problem?denies.?Genitourinary:?Blood urine?denies.?Frequent/Painfu/urination/bladder control?denies.?Kidney stones?denies.?Infection (UTI)?denies.?Nephropathy?denies.?sex trans dis (STD)?denies.?Prostate?denies.?Musculoskeletal:?Hammertoes?denies.?Bunions?denies.?Back Pain?denies.?Muscle Cramps/ Resting?denies.?Muscle cramps / walking?denies.?Generalized aches and pains?denies.?Weakness?denies.?Integ.:?Gr?denies.?Scars?denies.?Corns/calluses?denies.?Ingrown nails?denies.?Painful nails?denies.?Open Sores?denies.?Rashes?denies.?Neurologic:?Difficulty sleeping?denies.?Brain disorder?denies.?Numbness?denies.?Balance t rouble?denies.?Confusion?denies.?Fainting/blackouts?denies.?Tingling?denies.?Joel mors?denies.? * Medical History:? * Surgical History:?carpal ines oliva surgery 08/04broken leg 2018 * Hospitalization/Major Diagno stic Procedure:?Denies Past Hospitalization * Family History:?Mother: wilfredo fraser.?Father: , diagnosed with Diabetic - NIDDM.? * Social History:?Tobacco Use:?Tobacco use other than smoking?Are you an other tobacco user??No ?Tobacco Control (Standard)?Tobacco use:?Nonsmoker ?Additional Findings: Tobacco non-user?Current nonsmoker ???Drugs/Alcohol:?Drugs?Have you used drugs other than those for medical reasons in the past 12 months??Yes ???Miscellaneous:?Caffeine: yes, 1-2 cups per day. ?Children: yes. ?Exercise: yes, walking, running. ?Marital status: . 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 ???Drug/Alcohol:?AUDIT-C (Standard)?Did you have a drink containing alcohol in the past year??No ?Points?0 ?Interpretation?Negative * Medications:?TakingMeloxicam Icosapent Ethyl metFORMIN HCl Atorvastatin Calcium Semglee HumaLOG Medication List reviewed and reconciled with the patientTaking Meloxicam Taking Icosapent Ethyl Taking metFORMIN HCl Taking Atorvastatin Calcium Taking Semglee Taking HumaLOG Medication List reviewed and reconciled with the patient * Allergies:?N.K.D.A.yes[Aller gies Verified] Objective: * Vitals:?Ht: 5 ft 7in, Wt:180 , BMI:28.19, Shoe size: 7.5, BP:126/73mm Hg, BS: 149, Ht-cm: 170.18 cm, Wt-k.65 kg. * ???Past Orders: ???Lab:HEMOGLOBIN A1C (GLYCO HEMOGLOBIN) (Order Date - 06/15/2024) (Collection Date & Time - 10/30/2024 09:58 AM) ? Value Reference Range ?HEMOGLOBIN A1C % (HH) 6.5 * Examination: ???Ophthalmology Referral: ?DIABETES EYE EXAM?Procedure Performed:?Yes ?Date of Exam Performed?03/25/2024 ?Findings of Diabetic Eye Exam:?no retinopathy?General Examination: ?GENERAL APPEARANCE:?Reveals a pleasant, alert, well-nourished, well- developed, well hydrated individual, who demonstrates proper attention to hygiene/body habitus, and is in no acute distress, Pt serves as own?historian for office visit today.?ORIENTED:?person, place, and time.?FOOT EXAM:?Lower Extremity Neurological Exam performed:?Yes ?Visual exam of foot performed:?Yes ?Date?10/30/2024 ?Footwear Evaluation?Footwear Evaluation performed:?Yes?Neurological: ?SENSORY:?Neurological exam reveals intact sensorium, pain sensation normal, vibration sensation intact, pinprick sensation is normal in the lower extremities, Pt denies, anesthesia, burning, paresthesia, tingling, B/L.?DEEP TENDON REFLEXES:?Achilles, 2/4, B/L.?Vascular: ?DP PULSES (B):?3/4, B/L.?PT PULSES (B):?3/4, B/L.?CAPILLARY FILL TIME:?immediate, all digits, B/L.?TROPHIC CONDITION-TEXTURE/ELASTICITY/TURGOR/HAIR GROWTH (B):?normal, B/L.?TEMPERTURE GRADIENT (C):?warm to cool, proximal to distal, B/L.?PIGMENTATION:?normal, B/L.?EDEMA (C):?absent, B/L.?Dermatologic: ?VERRUCA:?Reveals Multiple ( posterior ankle right, forefoot B/L, Great toe B/L), multi-loculated , mosaic-patterned, round, raised, flat-topped, petechial bleeding papule(s), with cauliflower appearance and interruption of skin lines, with pain to lateral compression, and size estimated at 3-15mm diameter.?Orthopedic: ?MUSCLE STRENGTH:?5/5 all groups in a symmetrical fashion , B/L.? Assessment: * Assessment: 1.?Right foot pain - M79.671 ???2.?Plantar wart - B07.0 (Primary)???3.?Left foot pain - M79.672???4.?Diabetes mellitus without complication - E11.9??? Plan: * Treatment: * Procedures:?Wart Treatment:?Procedure?Verruca, as described in exam, were debrided to pin-point bleeding margins with sterile 15 surgical blade, silver nitrate chemocautery applied, recomm. immune-boosting meds such as zinc, recomm. follow up with topical chemosurgical agents,, recomm Vircin Antiviral cream as directed under occlusion daily.? * Procedure Codes:?73387 Wart Destruction, 1-14, Modifiers: XS * Follow Up:?2 Months * Images: * Sign off status: Completed true * Provider:?Rosa Paul, DPLissette Date:? Generated for Rodger kwok/Tania/Tika on:?11/12/2024 09:12 AM EDT History and Physical Notes * HPI (History of Present Illness) Category Sub-Category Detail Notes Category Not es Skin problems Nature: warts Location: B/L Duration: several years Pt States PCP Visit: DATE: 07/30/2024 Examination Category Sub-Category Detail Notes Category Not es Neurological SENSORY: Neurological exa m reveals intact sensorium, pain sensation normal, vibration sensation intact, pinprick sensation is normal in the lower extremities, Pt denies, anesthesia, burning, paresthesia, tingling, B/L DEEP TENDON REFLEXES: Achilles, 2/4, B/L Dermatologic VERRUCA: Reveals Multiple ( posterior ankle right, forefoot B/L, Great toe B/L), multi-loculated , mosaic-patterned, round, raised, flat-topped, petechial bleeding papule(s), with cauliflower appearance and interruption of skin lines, with pain to lateral compression, and size estimated at 3-15mm diameter Orthopedic MUSCLE STRENGTH: 5/5 all groups in a symm etrical fashion , B/L General Examination GENERAL APPEARANCE: Reveals a pleasant, alert, well- nourished, well-developed, well hydrated individual, who demonstrates proper attention to hygiene/body habitus, and is in no acute distress, Pt serves as own historian for office visit today FOOT EXAM: Lower Extremity Neurological Exa m performed:: Yes Visual exam of foot performed:: Yes Date: 10/30/2024 ORIENTED: person, place, and t sara Footwear Evaluation Footwear Evaluation performe d:: Yes Ophthalmology Referral DIABETES EYE EXAM Procedure Perform ed:: Yes ?Date of Exam Performed: 03/25/2024 Findings of Diabetic Eye Exam:: no retin opathy Vascular DP PULSES (B): 3/4, B/L PT PULSES (B): 3/4, B/L CAPILLARY FILL TIME: immediate, all digi ts, B/L TEMPERTURE GRADIENT (C): warm to cool, p roximal to distal, B/L TROPHIC CONDITION-TEXTURE/ELASTICITY/TURGOR/HAIR GROWTH (B): normal, B/L EDEMA (C): absent, B/L PIGMENTATION: normal, B/L
== END 2024-11-12 10:21 | disposition home or self-care (01) ==
LOC: HO.HMCC 08:59
PROVIDERS: PCP Internal Medicine; Visit Provider Internal Medicine
DX: G56.02 Carpal tunnel syndrome, left upper limb (principal); E10.9 Type 1 diabetes mellitus without complications; E78.5 Hyperlipidemia, unspecified; K70.30 Alcoholic cirrhosis of liver without ascites

== ENCOUNTER → 2024-11-12 08:59 | Outpatient (BNVA) | payer OTHER, SELFPAY | PROVIDERS: PCP Internal Medicine; Visit Provider Internal Medicine | DX: E10.9 Type 1 diabetes mellitus without complications (principal); G56.02 Carpal tunnel syndrome, left upper limb; E78.5 Hyperlipidemia, unspecified; K70.30 Alcoholic cirrhosis of liver without ascites; Z79.899 Other long term (current) drug therapy | CPT/HCPCS: 96127 ==

== ENCOUNTER 2024-11-13 08:20 | Outpatient (REF) | payer OTHER, SELFPAY ==
--- OUTSIDE RECORDS SUMMARY | 2024-11-13 08:32 | XMS_ITS ---
Author Organization [facility] Address [address] [place] [address] Care Team Providers Care Metal Engraver Name Role Phone Aimee Burton MD Primary Care Provider Rosa Nieves [phone] REASON FOR VISIT bought vircin Encounters En[facility] [place] [address] 10/30/2024 Rosa Paul Plan Of Treatment Next Appt Details Provider Name:Rosa peraza, 01/08/2025 10:15:00 AM, [address] [place], [address], Progress Notes * Petros HECKDOB: 0 (54 yo M)Acc No.[id number]:10/30/2024 Patient:?Petros HECK :1970???Age:54 Y???Sex:Male Address:[address] [place] [address], [address] * true * Date:? Generated for Printi sundar/Tania/eTransmitting on:?11/13/2024 08:32 AM EDT
--- OUTSIDE RECORDS SUMMARY | 2024-11-13 08:32 | XMS_ITS | Patient Health Record ---
Author [facility] Address [address] [place] [address] Care Team Providers Care Business Solutions Architect Name Role Phone Aimee Burton MD Primary Care Provider Rosa Nieves Unavailable [phone] Allergies No Known Allergies Results Component Value Reference Range Notes HEMOGLOBIN A1C (GLYCOHEMOGLO BIN) Reviewed date:09/17/2024 08:26:16 AM Interpretation: Performing Lab: Notes/Report: HEMOGLOBIN A1C % (HH) 6.5 HEMOGLOBIN A1C (GLYCOHEMOGLO BIN) Reviewed date:10/30/2024 09:59:27 [...] W/U Status Risk Notes Problem Plantar wart (80977389) Plantar wart (B07.0) Active confirmed Problem 85603578 Diabetes mellitu s without complication (E11.9) Active confirmed Vital Signs Blood pressure diastolic 73 mm Hg 10/30/2024 Height 5 ft 7in in 10/30/2024 Blood pressure systolic 126 mm Hg 10/30/2024 Weight 180 lbs 10/30/2024 BMI 28.19 kg/m2 10/30/2024 Encounters Encounter Location Date Provider Diagnosis [address] [address] 09/17/2024 Rosa Paul Right foot pain M79.671 ; Plantar wart B07.0 ; Left foot pain M79.672 and Diabetes mellitus without complication E11.[address] [facility] [address] 10/30/2024 Rosa Paul Right foot pain M79.671 ; Plantar wart B07.0 ; Left foot pain M79.672 and Diabetes mellitus without complication E11.[address] [address] 09/15/2024 [facility] [place] [address] [address] 09/17/2024 Rosa Paul [facility] [address] [address] 10/30/2024 Rosa Paul Assessments Encounter Date Diagnosis [...] Provider Name:Rosa peraza, 01/08/2025 10:15:00 AM, [address] [place], [address], Insurance Providers Payer Name Payer Address Payer Phone Subscriber Number Group Number Insured Name Patient Relationship to Insured Coverage Start Date Coverage End Date [employer] [id number] [place] [id number] [phone] [id number] Arpan Petros Self - patient is the insured 3 Medical (General) History Medical History History ICD Code High Blood Pressure Joint implants/screws Diabetes mellitus Surgical History Surgery Date(Month/Year) carpal tunnel surgery 08/04 broken leg 2018
--- OUTSIDE RECORDS SUMMARY | 2024-11-13 08:32 | XMS_ITS ---
Author Organization [facility] Address [address] [place] [address] Care Team Providers Care Chef Teacher Name Role Phone Aimee Burton MD Primary Care Provider Rosa Nieves Unavailable [phone] Allergies No Known Allergies REASON FOR VISIT [...] 025 Encounters Encounter Location Date Provider Diagnosis [facility] [address] [place] [address] 10/30/2024 Rosa Paul Right foot pain M79.671 [...] Provider Name:Rosa peraza, 01/08/2025 10:15:00 AM, [address] [place], [address], Procedure Notes * Category Sub-Category Detail Notes Wart Treatment Procedure Verruca, as desc ribed in exam, were debrided to pin- point bleeding margins with sterile 15 surgical blade, silver nitrate chemocautery applied, recomm. immune-boosting meds such as zinc, recomm. follow up with topical chemosurgical agents,, recomm Vircin Antiviral cream as directed under occlusion daily Progress Notes * Petros HECKDOB: 0 (54 yo M)Acc No.[id number]:10/30/2024 Progress Notes Patient:?UMANGPetros Provider:?Rosa Paul DPM :1970???Age:54 Y???Sex:Male Woody e:10/30/2024 Address:[address] [place], [place] [id number] Pcp:Aimee Burton MD Subjective: * Chief Complaints: [...] ?Marital status: . 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 ???Drug/Alcohol:?AUDIT-C (Standard)?Did you have a drink containing [...] as directed under occlusion daily.? * Procedure Codes:?86865 Wart Destruction, 1-14, Modifiers: XS * Follow Up:?2 Months * Images: * Sign off status: Completed true * Provider:?Rosa Paul, DPLissette Date:? Generated for Rodger kwok/Tania/Tika on:?11/13/2024 08:32 AM EDT History and Physical Notes * [...]
--- OUTSIDE RECORDS SUMMARY | 2024-11-13 08:32 | XMS_ITS ---
Author Organization [facility] Address [address] [place] [address] Care Team Providers Care Production Miner Name Role Phone Aimee Burton MD Primary Care Provider Rosa Nieves [phone] [facility] En[facility] Encounter Location Date Provider Diagnosis [address] [address] 09/17/2024 Rosa Paul Plan Of Treatment Next Appt Details Provider Name:Rosa peraza, 01/08/2025 10:15:00 AM, [address] [facility], [place], [address], Progress Notes * Petros HECKDOB: 0 (54 yo M)Acc No.[id number]:09/17/2024 Patient:?Petros HECK :1970???Age:54 Y???Sex:Male Address:[address] [place] [address], [address] * true * Date:? Generated for Printi sundar/Tania/eTransmitting on:?11/13/2024 08:32 AM EDT
--- OUTSIDE RECORDS SUMMARY | 2024-11-13 08:32 | XMS_ITS | Clinical Summary ---
Author Organization [facility] Address [address] [place] [address] Phone Care Team Providers Care Office Mover Name Role Phone Aimee Burton MD Primary Care Provider [phone] Allergies No known active allergies Medications metFORMIN [...] tendon repair OTHER SURGICAL HISTORY 1993 PROCEDURE: [facility] OPEN TREATMENT TEMPOROMANDIBULAR DISLOCATION; COMMENT: wired shut [...] currently active code status orders. Care Teams Office Mover Relationship Specialty Start Date End Date Aimee Burton MD [address] [facility] [place] [address] PCP - General 02/25/24
[2024-11-13 10:06] LABS: MANUAL DIFF FLAG NO
[2024-11-13 10:22] LABS: Basophils Absolute Auto 0.1 X10*3/uL (0.0-0.2); Basophils Percent Auto 1.5 % (0-2); Eosinophils Absolute Auto 0.9 X10*3/uL (0.0-0.4); Eosinophils Percent Auto 16.1 % (0-4); Hematocrit 38.9 % (42.0-52.0); Hemoglobin 12.1 g/dl (14.0-18.0); Imm Gran Abs Auto 0.01 X10*3/uL (0.00-0.03); Imm Gran Pct Auto 0.2 % (0.0-0.4); Lymphocytes Absolute Auto 0.9 X10*3/uL (1.2-4.9); Lymphocytes Percent Auto 17.6 % (20-40); Mean Corpuscular HGB Conc 31.1 g/dl (31.0-36.0); Mean Corpuscular Hemoglobin 24.5 pg (27.0-33.0); Mean Corpuscular Volume 78.9 fL (80.0-98.0); Mean Platelet Volume 10.2 fL (9.4-12.4); Monocytes Absolute Auto 0.4 X10*3/uL (0.1-1.2); Monocytes Percent Auto 7.8 % (2-11); Neutrophils Percent Auto 56.8 % (45-73); Platelet Count 339 X10*3/uL (160-400); Red Blood Count 4.93 X10*6/uL (4.60-5.80); Red Cell Distribution Width 14.8 % (11.0-16.0); White Blood Count 5.3 X10*3/uL (4.8-10.8)
[2024-11-13 10:47] LABS: Alanine Aminotransferase 16 U/L (0-40); Albumin Level 3.8 g/dL (3.5-5.0); Alkaline Phosphatase 81 U/L (39-117); Anion Gap 12 (12-20); Aspartate Amino Transferase 25 U/L (5-37); Bilirubin Total 0.5 mg/dL (0.0-1.0); Blood Urea Nitrogen 14 mg/dL (9-16); Calcium 8.9 mg/dL (8.4-10.2); Carbon Dioxide 25 mmol/L (22-29); Chloride 107 mmol/L (96-108); Cholesterol 112 mg/dL (<200); Estimated Glomerular Filt Rate > 60; Glucose Fasting 129 mg/dL (60-99); HDL Cholesterol 32 mg/dL (>40); LDL Cholesterol Calculated 68 mg/dL (<100); Potassium 4.6 mmol/L (3.3-5.1); Sodium 139 mmol/L (135-145); Total Protein 6.4 g/dL (6.5-8.0); Triglycerides 64 mg/dL (<150)
[2024-11-13 11:21] LABS: Estimated Average Glucose 126 mg/dL; Hemoglobin A1C 129.4854 umol/L; Total Hemoglobin (HGBA1C) 3108.6592 umol/L
[2024-11-13 11:54] LABS: Creatinine Urine 112.94 mg/dL; Microalbumin Urine < 5.0 mg/L
== END 2024-11-13 08:21 | disposition home or self-care (01) ==
LOC: HO.HMGCLDS 08:20
PROVIDERS: PCP Internal Medicine; Visit Provider Internal Medicine
DX: Z00.00 Encounter for general adult medical examination without abnormal findings (principal); E10.9 Type 1 diabetes mellitus without complications; D64.9 Anemia, unspecified; E78.5 Hyperlipidemia, unspecified
CPT/HCPCS: 36415; 80053; 80061; 82043; 82570; 83036; 85025

== ENCOUNTER 2025-04-26 06:03 | Outpatient (REF) | payer OTHER, SELFPAY ==
--- OUTSIDE RECORDS SUMMARY | 2025-03-09 06:30 | XMS_ITS ---
Author Organization [facility] Address [address] [place] [address] Care Team Providers Care Healthcare Administration Intern Name Role Phone Aimee Burton MD Primary Care Provider Rosa Nieves [phone] Encounters Encounter Location Date Provider Diagnosis [address] [address] 03/09/2025 Rosa Paul Plan Of Treatment Next Appt Details Provider Name:Rosa peraza, 05/27/2025 02:45:00 PM, [address] [facility], [place], [address], Progress Notes * Petros HECKDOB: 0 (54 yo M)Acc No.[id number]:03/09/2025 Progress Notes Patient: Petros VASQUEZ Provider: Minor Paul DPM :1970 A ge:54 Y S ex:Male Date:03/09/2025 Address:[address] [place], [place] [id number] Pcp:Aimee Burton MD Subjective: * Chief Complaints: [...] DPM Date: 0 03/09/2025 Generated for Rodger kwok/Tania/Tika on: 0 04/26/2025 06:06 AM EDT
--- OUTSIDE RECORDS SUMMARY | 2025-04-26 06:07 | XMS_ITS | Clinical Summary ---
Author Organization [facility] Address [address] [place] [address] Phone Care Team Providers Care Solar System Designer Name Role Phone Aimee Burton MD Primary Care Provider [phone] Allergies No known active allergies Medications metFORMIN [...] times a day with meals. 15 tablet 5 Active acetaminophen (TYLENOL) 500 mg tablet Take 1 tablet (500 mg total) by mouth every 6 (six) hours if needed for moderate pain. Do not exceed 3 grams of Tylenol per day. 30 tablet 5 Active oxyCODONE (ROXICODONE) 5 mg immediate release tablet Take 1 tablet (5 mg total) by mouth every 6 (six) hours if needed for severe pain. Max Daily Amount: 20 mg 6 tablet 5 Active Additional Information Patient not taking.Reported on 02/19/2025 Active Problems Problem Noted Date Diagnosed Date Carpal tunnel syndrome on left 01/26/2025 Carpal tunnel syndrome, right upper limb 06/30/ 024 Diabetes 1.5, managed as type 1 ([facility] V24, CM S/[facility] V28) 06/08/2024 Overview (01/26/2025): Insulin-dependent diabetes noted on referral from PCP. List episode of diabetic ketoacidosis in the past date unknown High triglycerides 06/08/2024 Overview (01/26/2025): Noted on referral sent from PCP Sensorineural hearing loss (SNHL) of right ear 0 01/01/2023 Overview (01/26/2025): Sensorineural hearing loss, unilateral, right ear, with restricted hearing on the contralateral side; Note: Date Diagnosed: 01/01/2023 12:30 PM (H90.A21) Encounters Date Type Department Care Team Description 02/19/2025 9:30 AM EDT Office Visit Orthopedic Surgery [facility] [address] [address] Tamra Aponte PA Post-operative state (Primary Dx) 02/10/2025 12:45 PM EDT - 02/10/2025 2:00 PM EDT Surgery [facility] OR [address] [place] [phone] Breanne Daley MD RELEASE CARPAL TUNNEL ENDOSCOPIC left [[id number] (CPT )] 02/10/2025 11:50 AM EDT Anesthesia Event [facility] OR [address] [place] [phone] Roshan Robin MD Hard, Shannon, CRNA 02/10/2025 10:55 AM EDT - 02/10/2025 1:57 PM EDT Hospital Encounter [facility] OR [address] [place] [phone] Breanne Daley MD Discharge Disposition: Home or Self Care 02/08/2025 Telephone Orthopedic Surgery [facility] [address] [phone] Breanne Daley MD 01/26/2025 2:45 PM EDT Office Visit Orthopedic Surgery - [address] [place] [address] Breanne Daley MD Stiffness of hand joint, unspecified laterality (Primary Dx); Carpal tunnel syndrome on left from Last 3 Months Surgical History Surgery Date Site/Laterality Comments HAND SURGERY PROCEDURE: HISTORICAL HAND SURGERY; COMMENT: right hand - tendon repair OTHER SURGICAL HISTORY 1993 PROCEDURE: [place] TREAT[place] TEMPOROMANDIBULAR DISLOCATION; COMMENT: wired shut after punch WISDOM TOOTH EXTRACTION 1989 PROCEDURE: HISTORICAL WISDOM TEETH EXTRACTION ORIF TIBIA & FIBULA FRACTURES Right CARPAL TUNNEL RELEASE 07/06/2024 Right CARPAL TUNNEL RELEASE 02/10/2025 Left Left endoscopic carpal tunnel release Medical History Medical History Date Comments Hand injury 1997 DX:Hand injury; COMMENT: sliced tendons - right hand - repaired HL (hearing loss) r ear Diabetes mellitus ([facility] V 24, [facility] V28) Neuromuscular disorder ([facility] V24, [facility] V28) cts b Family History Medical History Relation [...] Safety Answer Date Record ed Physical Abuse 02/10/2025 Verbal Abuse 02/10/2025 Sex and Gender Information Value Date Recorded Sex Assigned at Male 07/06/2024 7:47 AM EST Legal Sex Male 5:14 PM EST Gender Identity Male 07/06/2024 7:47 AM EST Sexual Orientation Straight 07/06/2024 7: 47 AM EST Obstetrics History Last Filed Vital Signs Vital Sign Reading Time Taken Comments Blood Pressure 130/70 02/10/2025 1:21 PM EDT Pulse 60 02/10/2025 1:21 PM EDT Temperature 36.3 C (97.4 F) 02/10/2025 12:46 PM EDT Respiratory Rate 16 02/10/2025 12:46 PM EDT Oxygen Saturation 100% 02/10/2025 1:21 PM EDT Inhaled Oxygen Concentration - - Weight 81.6 kg (180 lb) 02/19/2025 9:47 AM EDT Height 170.2 cm (5' 7.01 ) 02/19/2025 9:47 AM E DT Body Mass Index 28.19 02/19/2025 9:47 AM EDT Plan of Treatment Health Maintenance Due Date Last Done Comments Diabetes: Annual GFR (Glomerular Filtration Rate) 1970 Diabetes: Annual Foot Exam 1980 Diabetes: Annual Retina Eye Exam 1980 Hepatitis B Vaccines (1 of 3 - 19+ 3-dose series) 1989 DTaP,Tdap,and Td Vaccines (2 - Td or Tdap) 06/22/2018 06/22/2008 Zoster Vaccines (1 of 2) 2020 Pneumococcal Vaccine: 50+ Years (2 of 2 - PCV) 04/28/2021 04/28/2020 Cholesterol Screening (Lipid Panel) 06/13/2024 Colorectal Cancer Screening: Colonoscopy 06/13/2024 Diabetes: Annual Urine Albumin-Creatinine Ratio (uACR) 06/13/2024 Diabetes: Blood Sugar Contro l Test (HGBA1C) 06/13/2024 HIV Screening 06/13/2024 Hepatitis C Screening 06/13/2024 Social Influencers of Health Screening 06/13/2024 Depression Screening 08/12/2024 COVID-19 Vaccine (3 - 2024-2 6 season) 2025 12/27/2020, 12/06/2020 Influenza Vaccine (#1) 2025 06/22/2008 HIB Vaccines Aged Out No longer eligi [...] age to complete this topic Meningococcal B Vaccine Aged Out No l onger eligible based on patient's age to complete this topic RSV Immunization Patients Under 20 months Aged Out No longer eligible b ased on patient's age to complete this topic Varicella Vaccines Aged Out No longer eligible based on patient's age to complete this topic Procedures Procedure Name Priority Date/Time Associated Diagnosis Comments [facility] ENDOSCOPY WRIST SURGICAL WITH RELEASE TRANSVERSE CARPAL LIGAMENT 02/10/2025 11:50 AM EDT Carpal tunnel syndrome on left Special Needs 02/05 Anesthesia general per Siomara via phone JT POCT GLUCOSE BLOOD Routine 02/10/2025 11 :07 AM EDT from Last 3 Months Results * (ABNORMAL) POCT Glucose, blood (02/10/2025 11:07 AM EDT) [facility] Glucose POCT 141(H) 70 - 100 mg/dL 02/10/2025 11:08 AM EDT [facility]) [facility] Blood Capillary blood specimen / Unknown 02/10/2025 11:07 AM EDT 02/10/2025 11:10 AM EDT Breanne Daley MD LAB POINT OF CARE TE ST DOCKED DEVICE UNSOLICITED RESULTS Final Result [facility] [address] [place] [address], from Last 3 Months Insurance [employer] Advance Directives * Full Code [...] currently active code status orders. Care Teams Solar System Designer Relationship Specialty Start Date End Date Aimee Burton MD [address] [place] [address] PCP - General 02/25/24
--- OUTSIDE RECORDS SUMMARY | 2025-04-26 06:07 | XMS_ITS | Patient Health Record ---
[facility] [place] Address [address] [place] [address] Care Team Providers Care Will Call Clerk Name Role Phone Aimee Burton MD Primary Care Provider Rosa Nieves Unavailable [phone] Allergies No Known Allergies Results Component Value Reference Range Notes HEMOGLOBIN A1C (GLYCOHEMOGLO BIN) Reviewed date:10/30/2024 09:59:27 AM Interpretation: Performing Lab: Notes/Report: HEMOGLOBIN A1C % (HH) 6.5 HEMOGLOBIN A1C (GLYCOHEMOGLO BIN) Reviewed date:09/17/2024 08:26:16 AM Interpretation: Performing Lab: Notes/Report: HEMOGLOBIN A1C % (HH) 6.5 Reason For Referral No Information Medications Medication SIG (Take, Route, Fr equency, Duration) Notes Start Date End Date Status Meloxicam Active Icosapent Ethyl Acti ve HumaLOG Active Semglee Active Atorvastatin Calcium Active metFORMIN HCl Active Immunizations Vaccine Route Administration Date Status Comme nts Influenza Unknown 02/05/2025 Refused Social History Tobacco Use: Social History Observation [...] W/U Status Risk Notes Problem Plantar wart (29461078) Plantar wart (B07.0) Active confirmed Problem Diabetes mellitus (32558026) Diabetes mellitus without complication (E11.9) Active confirmed Vital Signs Blood pressure diastolic 75 mm Hg 03/15/2025 Height 5ft 7in in 03/15/2025 Blood pressure systolic 125 mm Hg 03/15/2025 Weight 180 lbs 03/15/2025 BMI 28.19 kg/m2 03/15/2025 Encounters Encounter Location Date Provider Diagnosis [facility] [address] [place] [address] 09/17/2024 Rosa Perica Right foot pain M79.671 ; Plantar wart B07.0 ; Left foot pain M79.672 and Diabetes mellitus without complication E11.[address] [address] 10/30/2024 Rosa Perica Right foot pain M79.671 ; Plantar wart B07.0 ; Left foot pain M79.672 and Diabetes mellitus without complication E11.[address] [address] 01/08/2025 Rosa Perica Right foot pain M79.671 ; Plantar wart B07.0 ; Left foot pain M79.672 and Diabetes mellitus without complication E11.[address] [address] 02/05/2025 Rosa Perica Right foot pain M79.671 ; Plantar wart B07.0 ; Left foot pain M79.672 and Diabetes mellitus without complication E11.9 [facility] [address] [place] [address] 03/15/2025 Rosa Perica Right foot pain M79.671 ; Plantar wart B07.0 ; Left foot pain M79.672 and Diabetes mellitus without complication E11.[address] [address] 09/15/2024 Rosa Perica [facility] [address] [facility] [place] [address] 09/17/[address] [address] [facility] [address] 10/30/2024 Rosa Perica [address] [place] [address] 02/08/2025 Rosa Paul Assessments Encounter Date Diagnosis (ICD Code) Assessment Notes Treatment Notes Treatment Clinical Notes Section Notes 03/15/2025 Right foot pain (ICD-10 - M79.671) 02/05/2025 Right foot pain (ICD-10 - M79.671) 01/08/2025 Right foot pain (ICD-10 - M79.671) 09/17/2024 Right foot pain (ICD-10 - M79.671) 10/30/2024 Right foot pain (ICD-10 - M79.671) 10/30/2024 Plantar wart (ICD-10 - B07.0) 09/17/2024 Left foot pain (ICD-10 - M79.672) 01/08/2025 Plantar wart (ICD-10 - B07.0) 09/17/2024 Plantar wart (ICD-10 - B07.0) 03/15/2025 Plantar wart (ICD-10 - B07.0) 02/05/2025 Plantar wart (ICD-10 - B07.0) 03/15/2025 Left foot pain (ICD-10 - M79.672) 01/08/2025 Left foot pain (ICD-10 - M79.672) 02/05/2025 Left foot pain (ICD-10 - M79.672) 09/17/2024 Diabetes mellitus without complication (ICD-10 - E11.9) 10/30/2024 Left foot pain (ICD-10 - M79.672) 10/30/2024 Diabetes mellitus without complication (ICD-10 - E11.9) 02/05/2025 Diabetes mellitus without complication (ICD-10 - E11.9) 01/08/2025 Diabetes mellitus without complication (ICD-10 - E11.9) 03/15/2025 Diabetes mellitus without complication (ICD-10 - E11.9) Plan Of Treatment Next Appt Details Provider Name:Rosa peraza, 05/27/2025 02:45:00 PM, [address] [place], [address], Insurance Providers Payer Name Payer Address Payer Phone Subscriber Number Group Number Insured Name Patient Relationship to Insured Coverage Start Date Coverage End Date CLAIRE [address] [place], [place] [address] [phone] [id number] Petros Antony Self - patient is the insured 3 Medical (General) History Medical History History ICD Code High Blood Pressure Joint implants/screws Diabetes mellitus hearing aids Surgical History Surgery Date(Month/Year) carpal tunnel surgery 08/04 broken leg 2018 carpal tunnel right hand
== END 2025-04-26 06:04 | disposition home or self-care (01) ==
LOC: HO.HMGCLDS 06:03
PROVIDERS: PCP Internal Medicine; Visit Provider Internal Medicine
DX: Z13.89 Encounter for screening for other disorder (principal)

== ENCOUNTER 2025-04-27 06:17 | Outpatient (REF) | payer OTHER, SELFPAY ==
--- OUTSIDE RECORDS SUMMARY | 2025-03-09 06:30 | XMS_ITS ---
Author Organization [facility] Address [address] [place] [address] Care Team Providers Care Supervisor Functional Testing Name Role Phone Aimee Burton MD Primary Care Provider Rosa Nieves [phone] Encounters Encounter Location Date Provider Diagnosis [address] [address] 03/09/2025 Rosa Paul Plan Of Treatment Next Appt Details Provider Name:Rosa peraza, 05/27/2025 02:45:00 PM, [address] [facility], [place], [address], Progress Notes * Petros HECKDOB: 0 (54 yo M)Acc No.[id number]:03/09/2025 Progress Notes Patient: Petros VASQUEZ Provider: Minor Paul DPM :1970 A ge:54 Y S ex:Male Date:03/09/2025 Address:[address] [place], [place] [phone] Pcp:Aimee Burton MD Subjective: * Chief Complaints: [...] 03/09/2025 Generated for Rodger kwok/Tania/Tika on: 0 04/27/2025 06:19 AM EDT
--- OUTSIDE RECORDS SUMMARY | 2025-04-27 06:19 | XMS_ITS | Clinical Summary ---
Author Organization [facility] Address [address] [place] [address] Phone Care Team Providers Care Change Management Consultant Name Role Phone Aimee Burton MD Primary Care Provider [phone] Allergies No known active allergies Medications metFORMIN [...] 024 Diabetes 1.5, managed as type 1 ([facility] V24, CM S/[facility] V28) 06/08/2024 Overview (01/26/2025): Insulin-dependent diabetes noted [...] 9:30 AM EDT Office Visit Orthopedic Surgery [facility] [address] [address] Tamra Aponte PA Post-operative state (Primary Dx) 02/10/2025 12:45 PM EDT - 02/10/2025 2:00 PM EDT Surgery [facility] OR [address] [place] [phone] Breanne Daley MD RELEASE CARPAL TUNNEL ENDOSCOPIC left [[id number] (CPT )] 02/10/2025 11:50 AM EDT Anesthesia Event [facility] OR [address] [place] [phone] Roshan Robin MD Hard, Shannon, CRNA 02/10/2025 10:55 AM EDT - 02/10/2025 1:57 PM EDT Hospital Encounter [facility] OR [address] [place] [phone] Breanne Daley MD Discharge Disposition: Home or Self Care 02/08/2025 Telephone Orthopedic Surgery [facility] [address] [address] Breanne Daley MD 01/26/2025 2:45 PM EDT Office Visit Orthopedic Surgery - [address] [place] [address] Breanne Daley MD Stiffness of hand joint, unspecified laterality (Primary Dx); Carpal tunnel syndrome on left from Last 3 Months Surgical History Surgery Date Site/Laterality Comments HAND SURGERY PROCEDURE: HISTORICAL HAND SURGERY; COMMENT: right hand - tendon repair OTHER SURGICAL HISTORY 1993 PROCEDURE: [place] OPEN TREATMENT TEMPOROMANDIBULAR DISLOCATION; COMMENT: wired shut [...] HL (hearing loss) r ear Diabetes mellitus ([facility] V 24, [facility] V28) Neuromuscular disorder ([facility] V24, [facility] V28) cts b Family History Medical History [...] Procedure Name Priority Date/Time Associated Diagnosis Comments [place] ENDOSCOPY WRIST SURGICAL WITH RELEASE TRANSVERSE CARPAL LIGAMENT 02/10/2025 11:50 AM EDT Carpal tunnel syndrome on left Special Needs 02/05 Anesthesia general per Siomara via phone JT POCT GLUCOSE BLOOD Routine 02/10/2025 11 :07 AM EDT from Last 3 Months Results * (ABNORMAL) POCT Glucose, blood (02/10/2025 11:07 AM EDT) [facility] Glucose POCT 141(H) 70 - 100 mg/dL 02/10/2025 11:08 AM EDT [facility] Blood Capillary blood specimen / Unknown 02/10/2025 11:07 AM EDT 02/10/2025 11:10 AM EDT Breanne Daley MD LAB POINT OF CARE TE ST DOCKED DEVICE UNSOLICITED RESULTS Final Result [facility] [address] [place] [address], from Last 3 Months Insurance [employer] Advance [...] currently active code status orders. Care Teams Change Management Consultant Relationship Specialty Start Date End Date Aimee Burton MD [address] [place] [address] PCP - General 02/25/24
--- OUTSIDE RECORDS SUMMARY | 2025-04-27 06:19 | XMS_ITS | Patient Health Record ---
Author [facility] [place] Address [address] [place] [address] Care Team Providers Care Fresh Work Wrapper Layer Name Role Phone Aimee Burton MD Primary Care Provider Rosa Nieves Unavailable [phone] Allergies No Known Allergies Results Component Value [...] W/U Status Risk Notes Problem Plantar wart (96842145) Plantar wart (B07.0) Active confirmed Problem Diabetes mellitus (37117619) Diabetes mellitus without complication (E11.9) Active confirmed Vital Signs Blood pressure diastolic 75 mm Hg 03/15/2025 Height 5ft 7in in 03/15/2025 Blood pressure systolic 125 mm Hg 03/15/2025 Weight 180 lbs 03/15/2025 BMI 28.19 kg/m2 03/15/2025 Encounters Encounter Location Date Provider Diagnosis [facility] [address] [place] [address] 09/17/2024 Rosa Perica Right foot pain M79.671 ; Plantar wart B07.0 ; Left foot pain M79.672 and Diabetes mellitus without complication E11.[address] [address] 10/30/2024 Rosa Perica Right foot pain M79.671 ; Plantar wart B07.0 ; Left foot pain M79.672 and Diabetes mellitus without complication E11.[address] [address] 01/08/2025 Rosa Perica Right foot pain M79.671 ; Plantar wart B07.0 ; Left foot pain M79.672 and Diabetes mellitus without complication E11.[address] [address] 02/05/2025 Rosa Perica Right foot pain M79.671 ; Plantar wart B07.0 ; Left foot pain M79.672 and Diabetes mellitus without complication E11.9 [facility] [address] [place] [address] 03/15/2025 Rosa Perica Right foot pain M79.671 ; Plantar wart B07.0 ; Left foot pain M79.672 and Diabetes mellitus without complication E11.[address] [address] 09/15/2024 Rosa Perica [facility] [address] [facility] [address] 09/17/2024 [facility] [address] 10/30/2024 Rosa Perica [address] [place] [address] 02/08/2025 Rosa Paul Assessments Encounter Date Diagnosis (ICD Code) Assessment Notes Treatment Notes Treatment Clinical Notes Section Notes 03/15/2025 Right foot pain (ICD-10 - M79.671) 01/08/2025 Right foot pain (ICD-10 - M79.671) 02/05/2025 Right foot pain (ICD-10 - M79.671) 09/17/2024 Right foot pain (ICD-10 - M79.671) 10/30/2024 Right foot pain (ICD-10 - M79.671) 10/30/2024 Plantar wart (ICD-10 - B07.0) 09/17/2024 Left foot pain (ICD-10 - M79.672) 02/05/2025 Plantar wart (ICD-10 - B07.0) 09/17/2024 Plantar wart (ICD-10 - B07.0) 03/15/2025 Plantar wart (ICD-10 - B07.0) 01/08/2025 Plantar wart (ICD-10 - B07.0) 03/15/2025 Left foot pain (ICD-10 - M79.672) 02/05/2025 Left foot pain (ICD-10 - M79.672) 01/08/2025 Left foot pain (ICD-10 - M79.672) 09/17/2024 [...] Provider Name:Rosa peraza, 05/27/2025 02:45:00 PM, [address] [place], [address], Insurance Providers Payer Name Payer Address Payer Phone Subscriber Number Group Number Insured Name Patient Relationship to Insured Coverage Start Date Coverage End Date CLAIRE [address] [place], [place] [address] [id number] Petros Antony Self - patient is the insured 3 Medical (General) History Medical History History ICD Code High Blood Pressure Joint implants/screws Diabetes mellitus hearing aids Surgical History Surgery Date(Month/Year) carpal tunnel surgery 08/04 broken leg 2018 carpal tunnel right hand
[2025-04-27 10:48] LABS: MANUAL DIFF FLAG NO
[2025-04-27 11:16] LABS: Hematocrit 34.7 % (42.0-52.0); Hemoglobin 10.9 g/dl (14.0-18.0); Imm Gran Abs Auto 0.01 X10*3/uL (0.00-0.03); Imm Gran Pct Auto 0.2 % (0.0-0.4); Lymphocytes Absolute Auto 1.0 X10*3/uL (1.2-4.9); Mean Corpuscular HGB Conc 31.4 g/dl (31.0-36.0); Mean Corpuscular Hemoglobin 24.2 pg (27.0-33.0); Mean Corpuscular Volume 76.9 fL (80.0-98.0); NRBC Abs Auto 0.000 X10*3/uL (0.0-0.012); NRBC Pct Auto 0.0 /100WBC (0.0-0.2); Platelet Count 353 X10*3/uL (160-400); Red Blood Count 4.51 X10*6/uL (4.60-5.80); White Blood Count 5.5 X10*3/uL (4.8-10.8)
[2025-04-27 11:46] LABS: Alanine Aminotransferase 13 U/L (0-40); Albumin Level 4.0 g/dL (3.5-5.0); Alkaline Phosphatase 75 U/L (39-117); Anion Gap 12 (12-20); Aspartate Amino Transferase 38 U/L (5-37); Blood Urea Nitrogen 16 mg/dL (9-16); Calcium 8.6 mg/dL (8.4-10.2); Carbon Dioxide 25 mmol/L (22-29); Chloride 107 mmol/L (96-108); Cholesterol 113 mg/dL (<200); Estimated Glomerular Filt Rate > 60; HDL Cholesterol 30 mg/dL (>40); Potassium 4.4 mmol/L (3.3-5.1); Sodium 140 mmol/L (135-145); Total Protein 6.3 g/dL (6.5-8.0); Triglycerides 129 mg/dL (<150)
[2025-04-27 11:51] LABS: Hemoglobin A1C 120.0715 umol/L
== END 2025-04-27 06:18 | disposition home or self-care (01) ==
LOC: HO.HMGCLDS 06:17
PROVIDERS: PCP Internal Medicine; Visit Provider Internal Medicine
DX: E10.9 Type 1 diabetes mellitus without complications (principal); E78.5 Hyperlipidemia, unspecified; K70.30 Alcoholic cirrhosis of liver without ascites; Z79.4 Long term (current) use of insulin; Z79.84 Long term (current) use of oral hypoglycemic drugs; Z79.899 Other long term (current) drug therapy
CPT/HCPCS: 36415; 80053; 80061; 82043; 82105; 82570; 83036; 85025

== ENCOUNTER 2025-04-27 09:53 | Outpatient (AMB) | payer OTHER, SELFPAY ==
--- NOTE | 2025-04-27 10:01 | A.OFFPC_ITS ---
Vital Signs 04/27/25 10:02 Height 5 ft 7 in Weight 172 lb BMI 26.9 BP 106/76 Blood Pressure Location Lt brachial Position Sitting Respiration 18 Pulse 64 Pulse Source Pulse Oximeter Temp 98.3 F Temp Source Oral Pulse Oximetry (%) 98 Oxygen Delivery Method Room Air Intake Visit Reasons: check up Intake Note: Pt is here today for a follow up visit on DM. Allergies No Known Allergies (No Known Allergies*) Allergy (Verified 04/27/25 10:10) Medication List - Last Reconciled 04/27/25 by Aimee Burton MD alcohol swabs 1 pad topical BID-TID atorvastatin 40 mg PO BEDTIME blood sugar diagnostic (TaktioTouch Ultra Blue Test Strip) four times a day FreeStyle Rene 2 Plus Sensor (blood-glucose sensor) Test blood sugar 4 times per day NS icosapent ethyl 2 grams (2 x 1 gram) PO BID insulin glargine-yfgn (Semglee (insulin glargine-yfgn) Pen) 24 units (0.24 mL) subcut DAILY insulin lispro (Humalog Shawn KwikPen (U-100)) 4-20 units subcutaneously 4 times a day; lancets (TaktioTouch Delica Lancets) four times a day meloxicam 15 mg PO .qd metformin 850 mg PO BID 90 days pen needle, diabetic (BD Ultra-Fine Franny Pen Needle) 1 ea subcut five times a day; triamcinolone acetonide 0.1% 1 appl topical DAILY Tobacco use date assessed: 04/27/25 Dental Screening Dental Screen Date: 04/27/25 HPI check up HPI Details Patient presents for the follow-up of insulin-dependent diabetes and hyperlipidemia stable on current medications. He reports fasting blood glucose between 100-120. Patient complains of not be able to extend his both hands completely because of hand flexor tendon stiffness and discomfort. Patient was evaluated by hand surgeon and EMG was negative for recurrent carpal tunnel syndrome. He denies joint swelling erythema warmth or prolonged morning stiffness. Patient was referred to clinical biochemist by hand surgeon [facility] Medical History Normal colonoscopy Annual physical exam Hx of fracture of fibula Hypertriglyceridemia Acute renal failure DKA (diabetic ketoacidoses) Acute pancreatitis Cirrhosis, alcoholic Hyperlipidemia LDL goal <100 Type 1 diabetes mellitus without complications Surgical History Hx of hand surgery Family History Father Diabetes Mother Hyperlipidemia Paternal Uncle Diabetes Social History Household Members: Spouse and Children Housing: House Alcohol intake: former Year quit: 2019 Patient Tobacco Use Status: Never used Tobacco e-Cigarette/Vaping Use: Never Used Substance Use Type: Marijuana service: No Current occupational status: employed 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 1. Little interest or pleasure in doing things: not at all 2. Feeling down, depressed, or hopeless: not at all 3. Trouble falling or staying asleep, or sleeping too much: more than half the days 4. Feeling tired or having little energy: more than half the days 5. Poor appetite or overeating: not at all 6. Feeling bad about yourself - or that you are a failure or have let yourself or your family down: not at all 7. Trouble concentrating on things, such as reading the newspaper or watching television: not at all 8. Moving or speaking so slowly that other people could have noticed. Or the opposite - being so fidgety or restless that you have been moving around a lot more than usual: not at all 9. Thoughts that you would be better off or of hurting yourself in some way: not at all Total score: 4 Depression Screening Interpretation: Negative Depression Screening Done: Yes Source: Developed by Drs. Esvin Calle, Tabby Saldivar, Raghav Carr and colleagues, with an educational spring from [employer]. Thrive Questionnaire Date Thrive assessed: 11/12/24 I am a: Patient What is your living situation today?: I have a steady place to live Within the past 12 months, did the food you bought not last and you didn't have the money to get more?: Never true Within the past 12 months, did you worry whether your food would run out before you got money to buy more?: Never true Do you have trouble paying for medicines?: No Do you have trouble getting transportation to medical appointments?: No Do you have trouble paying your heating and electricity bill?: No Do you have trouble taking care of your child, family member or friend?: No Do you have trouble with day-to-day activities such as bathing, preparing meals, shopping, managing finances, etc.?: No Are you currently unemployed and looking for a job?: No Are you interested in more education?: No Please select the resources that you would like help with: None Currently or been in a relationship where the following occur: No concerns reported THRIVE Score: 0 ELLA-7 AMB Questionnaire ELLA-7 Date ELLA - 7 assessed: 11/12/24 Feeling nervous, anxious, or on edge: 0 = Not at all Not being able to stop or control worryin = Not at all Worrying too much about different things: 0 = Not at all Trouble relaxin = Not at all Being so restless that it is hard to sit still: 1 = Several days Becoming easily annoyed or irritable: 0 = Not at all Feeling afraid as if something awful might happen: 0 = Not at all Total ELLA-7 score (0-4 normal; 5-9 mild; 10-14 moderate; 15-21 severe): 1 Source: Developed by Drs. Esvin Calle, Tabby Saldivar, Raghav Carr and colleagues, with an educational spring from [employer]. Review of Systems Const All systems reviewed & are unremarkable except as noted in HPI and below Eyes Reports no additional complaints ENT Reports no additional complaints Card Reports no additional complaints Resp Reports no additional complaints GI Reports no additional complaints Reports no additional complaints Physical exam (Primary Care) Vital Signs: Last Vital Signs Temp 98.3 F 04/27/25 10:02 Pulse 64 04/27/25 10:02 Resp 18 04/27/25 10:02 BP 106/76 04/27/25 10:02 Pulse Ox 98 04/27/25 10:02 Oxygen Delivery Method Room Air 04/27/25 10:02 BMI result Body Mass Index 26.9 Tobacco/Smoking Status: Tobacco use Status Tobacco use date assessed 04/27/25 04/27/25 10:11 Patient Tobacco Use Status Never used Tobacco 04/27/25 10:02 e-Cigarette/Vaping Use Never Used 04/27/25 10:02 PHQ-9: PHQ-9 Score PHQ-9: Total score 4 04/27/25 10:16 Depression Screening Interpretation: Negative Thrive Assessment: Date of Thrive Assessment Date Thrive assessed 11/12/24 04/27/25 10:02 Currently or been in a relationship where the following occur: No concerns reported Const General: no acute distress HENMT Face and sinus: Yes normal facial exam Mouth: Normal oral and palatal mucosa present Neck Neck: Yes no lymphadenopathy and Yes supple Resp Effort & Inspection: normal respiratory effort Auscultation: clear to auscultation bilaterally Cardio Rhythm: regular rhythm Heart sounds: S1 normal heart sound present and S2 normal heart sound present GI Inspection: Yes normal to inspection Palpation (GI): Soft to palpation Percussion: Yes normal to percussion Auscultation: normal bowel sounds Extrem Other: Both hands no soft tissue swelling erythema and warmth. Hand chief transfer and pumphouse operator is 5/5 bilaterally. There post surgical scarring on the right palm, Coding Level of Care Code Est Pt Level 4 (76673) Diagnoses Type 1 diabetes mellitus without complications E10.9 Cirrhosis, alcoholic K70.30 Hyperlipidemia LDL goal <100 E78.5 Assessment & Plan Assessment & Plan (1) Type 1 diabetes mellitus without complications: Comment: Patient refused Pneumovax 11/2024 Code(s): E10.9 - Type 1 diabetes mellitus without complications Category: Medical Plan: Patient had a fasting blood work today, continue ADA diet current medications physical in 3 months (2) Cirrhosis, alcoholic: Comment: 12/2019, compensated Code(s): K70.30 - Alcoholic cirrhosis of liver without ascites Category: Medical Plan: Monitor LFTs (3) Hyperlipidemia LDL goal <100: Code(s): E78.5 - Hyperlipidemia, unspecified Category: Medical Plan: Continue statin Orders: Orders Hemoglobin A1c 3 Months E10.9 - Type 1 diabetes mellitus without complications, E78.5 - Hyperlipidemia, unspecified Comprehensive Napanoch. Panel Fast 3 Months E10.9 - Type 1 diabetes mellitus without complications, E78.5 - Hyperlipidemia, unspecified Lipid Panel 3 Months E10.9 - Type 1 diabetes mellitus without complications, E78.5 - Hyperlipidemia, unspecified Microalbumin, Random (w Creat) 3 Months E10.9 - Type 1 diabetes mellitus without complications, E78.5 - Hyperlipidemia, unspecified
[2025-04-27 10:02] VITALS: BP 106/76; PULSE 64; RESP 18; TEMP 36.8; O2SAT 98; BMI 26.9
== END 2025-04-27 10:58 | disposition home or self-care (01) ==
PROVIDERS: PCP Internal Medicine; Visit Provider Internal Medicine
DX: E10.9 Type 1 diabetes mellitus without complications (principal); K70.30 Alcoholic cirrhosis of liver without ascites; E78.5 Hyperlipidemia, unspecified

== ENCOUNTER 2025-07-21 06:01 | Outpatient (REF) | payer OTHER, SELFPAY ==
--- OUTSIDE RECORDS SUMMARY | 2025-03-09 05:30 | XMS_ITS ---
Author Organization [facility] Address [address] [place] [address] Care Team Providers Care Admin Secretary Name Role Phone Micheal MILLER, Aimee Primary Care Provider Rosa Nieves [phone] Encounters Encounter Location Date Provider Diagnosis [address] [address] 03/09/2025 Rosa Paul Plan Of Treatment Next Appt Details Provider Name:Rosa peraza, 07/23/2025 10:15:00 AM, [address] [place] [address], [address], Provider Name:Rosa peraza, 08/24/2025 10:15:00 AM, [address] [place] [address], [address], Progress Notes * Petros HECKDOB: 0 (55 yo M)Acc No.[id number]:03/09/2025 Progress Notes Patient: Petros VASQUEZ Provider: Minor Paul DPM :1970 A ge:54 Y S ex:Male Date:03/09/2025 Address:[address] [place], [place] [phone] Pcp:Aimee Burton MD Subjective: * Chief Complaints: * * Medical History: Objective: * Vitals: Assessment: Plan: * Treatment: * Images: * The named appointment provid er may or may not be the originator of this progress note, and it is not deemed complete until electronically signed by the appointment provider. Sign off status: Pending * Provider: Minor Paul DPM Date: 0 03/09/2025 Generated for Rodger kwok/[place] on: 1 09/21/2024 06:05 AM EST
--- OUTSIDE RECORDS SUMMARY | 2025-07-21 06:05 | XMS_ITS | Data Portability ---
Author Organization [place] - [facility], Allergy Address [address] [place] [address] Care Team Providers Care Supervisor Typesetting Name Role Phone CHANTAL AMARO Primary Care Provider Assessment Encounter Date Assessment Date Assessment LastModified by Organization Details LastModified Time 11/26/2024 11/26/2024 1 year interval MRI scan reviewed with the patient personally. This shows no signs of change in size or character of the right internal auditory canal lesion, which remains consistent with stable, non-growing acoustic neuroma. Audiometric testing today today shows worsened hearing in the affected ear, particularly with regards to speech discrimination. At this point conventional amplification is unlikely to give him any benefit in the right ear, but he would likely benefit from a CROS hearing system. He is interested in learning more about this, so we will set him up for hearing aid evaluation. He has insurance that does cover amplification, so he may need to go to a different hearing instrument provider if necessary. I've recommended continued observation with follow-up MRI scan in 1year, which we will arrange for the patient. Patient was instructed to contact me if they experience any sudden changes in hearing, balance, or facial function. [email or web address] Not available 11/26/2024 12:16:36 12/10/2024 12/10/2024 Patient has a very sloping loss with no discrimination ability. I wanted to see if that improved if we aided that ear and brought up the highs. I put a Phonak Audeo Sphere demo on him, masked the left ear, and did discrim in soundfield. The speech discrim went from 0% to 32% . This is a slight improvement but not enough for a hearing aid only on that side. I recommended he try a CROS and he understands how it will work. He does have a hearing aid benefit thru his insurance requiring him to go elsewhere. He has a copy of his audio and of the results that were obtained today. Theresa Rosales MA [facility] [email or web address] Not available 12/10/2024 12:11:36 Plan of Treatment Reminders Order Date Submit Date Provider Last Modified By Organization Details Last Modified Time Details Appointments None recorded. Lab None recorded. Referral None recorded. Procedures None recorded. Surgeries None recorded. Imaging MRI, brain + internal auditory canal, w/wo contrast - MRI, BRAIN + INTERNAL AUDITORY CANAL, W/WO CONTRAST 2024 026 [facility] [address] [facility] [address] [facility], [place], [address], 12:20:06 Medication Orders None recorded. Patient TargetsNo targets recorded. Patient InstructionsNo instructions recorded. Reason for Referral None Reported. Results Created Date Observation Date Name Description Value Unit Range Abnormal Flag Note LastModifiedBy Organization Detail LastModifiedTime 11/27/1911/26/2024 imagi ng/di agnos tic resul t No observ ation record ed. [email or web address] Not Available 2024 10:57:25 11/27/19 audio gram No observ ation record ed. BARCODE Not Available 2024 13:13:29 Result Notes None recorded. Problems Name Problem SNOMED Code Status Onset Date Resolution Date Notes Provider Name and Address Organization Details Recorded Time Sensorine ural hearing loss of bilateral ears 735291565 Active 2022 Sensorine ural hearing loss, bilateral ; Note: Date Diagnosed : 01/01/2023 11:42 AM (H90.3) Not Available [facility] 4 03:15:20 Sensorine ural hearing loss in right ear 79432628247 100 Active 2022 Sensorine ural hearing loss, unilatera l, right ear, with restricte d hearing on the contralat eral side; Note: Date Diagnosed : 01/01/2023 12:30 PM (H90.A21) Not Available [facility] 4 03:15:19 Benign neoplasm of cranial nerve 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 Procedures Surgical History Date Name Laterality Status Provider Name and Address Organization Details Recorded Time 11/26/2024 Air & Speech Audio with Tymps - 15461, 86578 & 84284 completed THERESA ALMAGUER MA, [facility] [address] [place] [address], [phone], [facility] - [facility] 11/26/2024 11:50:29 Imaging Results None recorded. Procedure Notes None recorded. Medical Equipment None Reported. Allergies No known drug allergies Medications Name Sig Start Date Stop Date Status Note LastModified by Organization Details LastModified Time meloxicam 15 mg tablet TAKE 1 TABLET BY MOUTH DAILY active Not Available Not Available No t Available acetaminophen ER 650 mg tablet,extend ed release TAKE 1 TABLET (650 MG) BY MOUTH EVERY 8 HOURS IF NEEDED FOR MILD PAIN. DO NOT CRUSH, CHEW, OR SPLIT. 11/26 completed Not Available Not Available Not Available ibuprofen 600 mg tablet TAKE 1 TABLET BY MOUTH 3 TIMES A DAY WITH MEALS 11/26 completed Not Available Not Available Not Available oxycodone 5 mg tablet TAKE 1 TABLET BY MOUTH EVERY 6 HOURS NEEDED FOR SEVERE PAIN 11/26 completed Not Available Not Available Not Available Vitals None Recorded Social History None recorded. Functional Status None recorded. Mental Status None recorded. Family History Nothing Reported. Medical History No medical history recorded. Past Encounters Encounter ID Performer Location Encounter Start Date Encounter Closed Date Diagnosis/Indication Diagnosis SNOMED-CT Code Diagnosis ICD10 Code Diagnosis IMO Codes Diagnosis Note [id number] ARTUR VICTORIA MD [facility] [address] [address] 11/26/2024 10:46:06 11/26/2024 12:20:06 Benign neoplasm of cranial nerve 34161032 D33.3 Sensorineu ral hearing loss of bilateral ears 575222755 H90.3 Audiologic al evaluation results: 11-26-2024 Right ear: Normal at 250Hz sloping to a profound SNHL with no measurable word recognitio n. Left ear: Normal hearing with a mild SNHL at 4000Hz with excellent word recognitio n. Tympanomet ry: Right Ear:[place] [id number] THERESA ALMAGUER [place], CCC-A [place] [facility] [place] [address] [facility] [address] [place] [address] 12/10/2024 10:05:36 12/18/2024 02:13:29 Sensorineural hearing loss of bilateral ears 771215915 H90.3 Health Concerns Section Related Observation LastModified by Organization Detai ls LastModified Time None Recorded Concern Status LastModified by Organization Details LastModified Time None Recorded Advance Directives Directive None Recorded Payers Insurance Date Sequence Insurance Name Policy Number Policy Ortiz Covered Member ID Ortiz Member ID Guarantor Name 12/18/[address] 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 Patient comes in today for most recent 1 year MRI review. Patient notes no hearing changes in comparison to last visit, though he does notice difficulty hearing in a number of different listening environments. No facial twitching or weakness. No new balance disturbance. ARTUR VICTORIA MD [address] [facility],[address], [address], [facility] - [facility] 11/26/2024 12:17:19 12/10/2024 text/html Sudden hearing loss right ear with no measurable speech clarity THERESA ALMAGUER MA, CCC-A [address] [facility],[address], [address], [facility] - [facility] 12/10/2024 12:12:00
--- OUTSIDE RECORDS SUMMARY | 2025-07-21 06:06 | XMS_ITS | Patient Health Record ---
Author Organization [facility] [place] Address [address] [place] [address] Care Team Providers Care Aligning Inspector Name Role Phone Aimee Burton MD Primary Care Provider Rosa Nieves Unavailable [phone] Allergies No Known Allergies Results Component Value Reference Range Notes HEMOGLOBIN A1C (GLYCOHEMOGLO BIN) Reviewed date:05/27/2025 02:38:48 PM Interpretation: Performing Lab: Notes/Report: HEMOGLOBIN A1C % (HH) 5.8 Reason For Referral No Information Medications Medication SIG (Take, Route, Fr equency, Duration) Notes Start Date End Date Status Meloxicam Active Icosapent Ethyl Acti ve metFORMIN HCl Active Atorvastatin Calcium Active Semglee Active HumaLOG Active Immunizations Vaccine Route Administration Date Status [...] W/U Status Risk Notes Problem Plantar wart (78744225) Plantar wart (B07.0) Active confirmed Problem Diabetes mellitus (70652490) Diabetes mellitus without complication (E11.9) Active confirmed Vital Signs Blood pressure diastolic 65 mm Hg 06/25/2025 Height 5ft 7in in 06/25/2025 Blood pressure systolic 128 mm Hg 06/25/2025 Weight 180 lbs 06/25/2025 BMI 28.19 kg/m2 06/25/2025 Encounters Encounter Location Date Provider Diagnosis [address] [address] 09/17/2024 Rosa Perica Right foot pain M79.671 ; Plantar wart B07.0 ; Left foot pain M79.672 and Diabetes mellitus without complication E11.[address] [address] 10/30/2024 Rosa Perica Right foot pain M79.671 ; Plantar wart B07.0 ; Left foot pain M79.672 and Diabetes mellitus without complication E11.[address] [address] 01/08/2025 Rosa Perica Right foot pain M79.671 ; Plantar wart B07.0 ; Left foot pain M79.672 and Diabetes mellitus without complication E11.[address] [address] 02/05/2025 Rosa Perica Right foot pain M79.671 ; Plantar wart B07.0 ; Left foot pain M79.672 and Diabetes mellitus without complication E11.9 [facility] [address] [place] [address] 03/15/2025 Rosa Perica Right foot pain M79.671 ; Plantar wart B07.0 ; Left foot pain M79.672 and Diabetes mellitus without complication E11.9 [facility] [address] [place] [address] 05/27/2025 Rosa Perica Right foot pain M79.671 ; Plantar wart B07.0 ; Left foot pain M79.672 and Diabetes mellitus without complication E11.[address] [address] 06/25/2025 Rosa Perica Right foot pain M79.671 ; Plantar wart B07.0 ; Left foot pain M79.672 and Diabetes mellitus without complication E11.[address] [address] [facility] [place] [address] [place] [address] 09/17/2024 [facility] [place] [address] [facility] [address] [place] [address] 10/30/2024 [facility] [place] [address] [place] [address] 02/08/2025 Rosa Paul Assessments Encounter Date Diagnosis (ICD Code) Assessment Notes Treatment Notes Treatment Clinical Notes Section Notes 09/17/2024 Right foot pain (ICD-10 - M79.671) 10/30/2024 Right foot pain (ICD-10 - M79.671) 01/08/2025 Right foot pain (ICD-10 - M79.671) 02/05/2025 Right foot pain (ICD-10 - M79.671) 03/15/2025 Right foot pain (ICD-10 - M79.671) 05/27/2025 Right foot pain (ICD-10 - M79.671) 06/25/2025 Right foot pain (ICD-10 - M79.671) 06/25/2025 Plantar wart (ICD-10 - B07.0) 03/15/2025 Plantar wart (ICD-10 - B07.0) 05/27/2025 Plantar wart (ICD-10 - B07.0) 01/08/2025 Plantar wart (ICD-10 - B07.0) 02/05/2025 Plantar wart (ICD-10 - B07.0) 09/17/2024 Left foot pain (ICD-10 - M79.672) 09/17/2024 Plantar wart (ICD-10 - B07.0) 10/30/2024 Plantar wart (ICD-10 - B07.0) 09/17/2024 Diabetes mellitus without complication (ICD-10 - E11.9) 01/08/2025 Left foot pain (ICD-10 - M79.672) 10/30/2024 Left foot pain (ICD-10 - M79.672) 02/05/2025 Left foot pain (ICD-10 - M79.672) 03/15/2025 Left foot pain (ICD-10 - M79.672) 06/25/2025 Left foot pain (ICD-10 - M79.672) 05/27/2025 Left foot pain (ICD-10 - M79.672) 05/27/2025 Diabetes mellitus without complication (ICD-10 - E11.9) 06/25/2025 Diabetes mellitus without complication (ICD-10 - E11.9) 03/15/2025 Diabetes mellitus without complication (ICD-10 - E11.9) 02/05/2025 Diabetes mellitus without complication (ICD-10 - E11.9) 10/30/2024 Diabetes mellitus without complication (ICD-10 - E11.9) 01/08/2025 Diabetes mellitus without complication (ICD-10 - E11.9) Plan Of Treatment Next Appt Details Provider Name:Rosa peraza, 07/23/2025 10:15:00 AM, [address] [place] [address], [phone], Provider Name:Rosa peraza, 08/24/2025 10:15:00 AM, [address] [place] [address], [phone], Insurance Providers Payer Name Payer Address Payer Phone Subscriber Number Group Number Insured Name Patient Relationship to Insured Coverage Start Date Coverage End Date CLAIRE [address] [place] [address] [phone] [id number] Petros Antony Self - patient is the insured 3 Medical (General) History Medical History History ICD Code High Blood Pressure Joint implants/screws Diabetes mellitus hearing aids Surgical History Surgery Date(Month/Year) carpal tunnel surgery 08/04 broken leg 2018 carpal tunnel right hand
[2025-07-21 10:35] LABS: Alanine Aminotransferase 12 U/L (0-40); Albumin Level 4.0 g/dL (3.5-5.0); Alkaline Phosphatase 74 U/L (39-117); Anion Gap 10 (12-20); Aspartate Amino Transferase 25 U/L (5-37); Blood Urea Nitrogen 13 mg/dL (9-16); Calcium 8.7 mg/dL (8.4-10.2); Carbon Dioxide 27 mmol/L (22-29); Chloride 106 mmol/L (96-108); Cholesterol 123 mg/dL (<200); Estimated Glomerular Filt Rate > 60; HDL Cholesterol 35 mg/dL (>40); Potassium 3.9 mmol/L (3.3-5.1); Sodium 139 mmol/L (135-145); Total Protein 6.6 g/dL (6.5-8.0); Triglycerides 90 mg/dL (<150)
[2025-07-21 10:46] LABS: Hemoglobin A1C 149.0662 umol/L
== END 2025-07-21 06:02 | disposition home or self-care (01) ==
LOC: HO.HMGCLDS 06:01
PROVIDERS: PCP Internal Medicine; Visit Provider Internal Medicine
DX: Z23 Encounter for immunization (principal); K70.30 Alcoholic cirrhosis of liver without ascites; E10.9 Type 1 diabetes mellitus without complications; E78.5 Hyperlipidemia, unspecified
CPT/HCPCS: 36415; 80053; 80061; 82043; 82570; 83036; 90471; 90677

== ENCOUNTER 2025-07-21 09:49 | Outpatient (AMB) | payer OTHER, SELFPAY ==
[2025-07-21 10:35] VITALS: BP 126/80; PULSE 80; RESP 17; TEMP 37.2; O2SAT 95; BMI 26.6
--- NOTE | 2025-07-21 10:35 | MHC.PC.OV ---
Vital Signs 07/21/25 10:35 Height 5 ft 7 in Weight 170 lb BMI 26.6 BP 126/80 Blood Pressure Location Lt brachial Position Sitting Respiration 17 Pulse 80 Pulse Source Pulse Oximeter Temp 99.0 F Temp Source Oral Pulse Oximetry (%) 95 Oxygen Delivery Method Room Air Intake Visit Reasons: Annual PE Intake Note: Pt is here today for PE. Allergies No Known Allergies (No Known Allergies*) Allergy (Verified 07/21/25 10:55) Medication List - Last Reconciled 07/21/25 by Aimee Burton MD alcohol swabs 1 pad topical BID-TID atorvastatin 40 mg PO BEDTIME blood sugar diagnostic (Zet UniverseTouch Ultra Blue Test Strip) four times a day FreeStyle Rene 2 Plus Sensor (blood-glucose sensor) Test blood sugar 4 times per day NS icosapent ethyl 2 grams (2 x 1 gram) PO BID insulin lispro (Humalog Shawn KwikPen (U-100)) 4-20 units subcutaneously 4 times a day; lancets (Zet UniverseTouch Delica Lancets) four times a day Lantus Solostar U-100 Insulin (insulin glargine) 24 units (0.24 mL) subcut DAILY NS meloxicam 15 mg PO .qd metformin 850 mg PO BID 90 days pen needle, diabetic (BD Ultra-Fine Franny Pen Needle) 1 ea subcut five times a day; triamcinolone acetonide 0.1% 1 appl topical DAILY Tobacco use date assessed: 07/21/25 Dental Screening Dental Screen Date: 04/27/25 HPI Annual PE HPI Details Patient presents for physical PFSH Medical History Normal colonoscopy Annual physical exam Hx of fracture of fibula Hypertriglyceridemia Acute renal failure DKA (diabetic ketoacidoses) Acute pancreatitis Cirrhosis, alcoholic Hyperlipidemia LDL goal <100 Type 1 diabetes mellitus without complications Surgical History Hx of hand surgery Family History Father Diabetes Mother Hyperlipidemia Paternal Uncle Diabetes Social History Household Members: Spouse and Children Housing: House Alcohol intake: former Year quit: 2019 Patient Tobacco Use Status: Never used Tobacco e-Cigarette/Vaping Use: Never Used Substance Use Type: Marijuana service: No Current occupational status: employed 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[employer], 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 Cognitive needs: No Hearing needs: No Vision needs: No Questionnaire Thrive Questionnaire Date Thrive assessed: 11/12/24 I am a: Patient What is your living situation today?: I have a steady place to live Within the past 12 months, did the food you bought not last and you didn't have the money to get more?: Never true Within the past 12 months, did you worry whether your food would run out before you got money to buy more?: Never true Do you have trouble paying for medicines?: No Do you have trouble getting transportation to medical appointments?: No Do you have trouble paying your heating and electricity bill?: No Do you have trouble taking care of your child, family member or friend?: No Do you have trouble with day-to-day activities such as bathing, preparing meals, shopping, managing finances, etc.?: No Are you currently unemployed and looking for a job?: No Are you interested in more education?: No Please select the resources that you would like help with: None Currently or been in a relationship where the following occur: No concerns reported THRIVE Score: 0 ELLA-7 AMB Questionnaire ELLA-7 Date ELLA - 7 assessed: 11/12/24 Source: Developed by Drs. Esvin Calle, Tabby Saldivar, Raghav Carr and colleagues, with an educational spring from [employer]. Review of Systems Const All systems reviewed & are unremarkable except as noted in HPI and below Eyes Reports no additional complaints ENT Reports no additional complaints Card Reports no additional complaints Resp Reports no additional complaints GI Reports no additional complaints Reports no additional complaints Physical exam (Primary Care) Vital Signs: Last Vital Signs Temp 99.0 F 07/21/25 10:35 Pulse 80 07/21/25 10:35 Resp 17 07/21/25 10:35 BP 126/80 07/21/25 10:35 Pulse Ox 95 07/21/25 10:35 Oxygen Delivery Method Room Air 07/21/25 10:35 BMI result Body Mass Index 26.6 Tobacco/Smoking Status: Tobacco use Status Tobacco use date assessed 07/21/25 07/21/25 10:56 Patient Tobacco Use Status Never used Tobacco 07/21/25 10:35 e-Cigarette/Vaping Use Never Used 07/21/25 10:35 Thrive Assessment: Date of Thrive Assessment Date Thrive assessed 11/12/24 07/21/25 10:35 Currently or been in a relationship where the following occur: No concerns reported Const General: no acute distress HENMT Head: Yes normal to inspection General nose exam: Normal external nose present Face and sinus: Yes normal facial exam Mouth: Normal oral and palatal mucosa present Eyes General: appearance normal, both eyes and all related structures Neck Neck: Yes no lymphadenopathy and Yes supple Resp Effort & Inspection: normal respiratory effort Auscultation: clear to auscultation bilaterally Cardio Rhythm: regular rhythm Heart sounds: S1 normal heart sound present and S2 normal heart sound present GI Inspection: Yes normal to inspection Palpation (GI): Soft to palpation Percussion: Yes normal to percussion Auscultation: normal bowel sounds Extrem Other: Diabetic foot exam : skin is intact , monofilament and vibration sensation intact b/l General: Yes no clubbing, cyanosis or edema Immunizations pneumoc 20-abimael conj-dip cr(PF) 0.5 mL IM syringe Performing Provider: Aimee Burton MD [place] [facility] [place] [facility] Administered by: ANDER Flores on 07/21/25 11:44 Dose Route Admin Location Dispensed Lot Number Expiration Date [facility] Quality Compliance Coordinator 0.5 mL IM Left Deltoid 0.5 mL [id number] 05/11/26 6306-2261-60 [employer]ER Total Dispensed Waste 0.5 mL 0 % VIS Given Date VIS Provided VIS Publication Date 07/21/25 Single Vaccine 25 Eligibility Eligibility Date Funding Source Not [facility] Eligible 07/21/25 Private Coding Level of Care Code Est Pt Prev Care 40-64y([id number]) Diagnoses Type 1 diabetes mellitus without complications E10.9 Hyperlipidemia LDL goal <100 E78.5 Cirrhosis, alcoholic K70.30 Assessment & Plan Assessment & Plan (1) Type 1 diabetes mellitus without complications: Code(s): E10.9 - Type 1 diabetes mellitus without complications Category: Medical Plan: A1c is 6.2, ADA diet regular exercise discussed with the patient. He is up-to-date with diabetic eye exam and follows up with color expert (2) Hyperlipidemia LDL goal <100: Code(s): E78.5 - Hyperlipidemia, unspecified Category: Medical Plan: Continue statin (3) Cirrhosis, alcoholic: Comment: 12/2019, compensated Code(s): K70.30 - Alcoholic cirrhosis of liver without ascites Category: Medical Plan: Stable , monitor LFTs Orders: Orders Complete Blood Count Auto Diff 3 Months E10.9 - Type 1 diabetes mellitus without complications Comprehensive [place]. Panel Fast 3 Months E10.9 - Type 1 diabetes mellitus without complications Microalbumin, Random (w Creat) 3 Months E10.9 - Type 1 diabetes mellitus without complications Alpha Fetoprotein 3 Months E10.9 - Type 1 diabetes mellitus without complications, K70.30 - Alcoholic cirrhosis of liver without ascites IRON PROFILE 3 Months E10.9 - Type 1 diabetes mellitus without complications Vitamin B12 3 Months E10.9 - Type 1 diabetes mellitus without complications Lipid Panel 3 Months E10.9 - Type 1 diabetes mellitus without complications Pneumococcal 20 Immunization Today Z23 - Encounter for immunization Hemoglobin A1c 3 Months E10.9 - Type 1 diabetes mellitus without complications, K70.30 - Alcoholic cirrhosis of liver without ascites
== END 2025-07-21 11:53 | disposition home or self-care (01) ==
LOC: HO.HMCC 09:50
PROVIDERS: PCP Internal Medicine; Visit Provider Internal Medicine
DX: Z00.00 Encounter for general adult medical examination without abnormal findings (principal); E10.9 Type 1 diabetes mellitus without complications; E78.5 Hyperlipidemia, unspecified; K70.30 Alcoholic cirrhosis of liver without ascites; Z23 Encounter for immunization